=== PATIENT | female | born 1960 | race Caucasian/White ===

== ENCOUNTER 2017-05-31 18:36 | Observation (INO) | payer MEDICAID, SELFPAY ==
--- NOTE | 2017-05-31 18:54 | EDM.PDOC ---
ED HPI GENERAL MEDICAL PROBLEM - General Stated Complaint: INFLAMED RT THIGH Time Seen by Provider: 05/31/17 18:36 Source of Information: Reports: Patient, EMS, Family History Limitations: Reports: Physical Impairment - History of Present Illness INITIAL COMMENTS - FREE TEXT/NARRATIVE: 56 y.o.w f with metabolic syndrome, multiple medical problems, came to EMS to the ED due to redness of her right lower extremity. Pt denies SOB but has elevated temp. Pt took Tylenol at about 3 pm. Pt is not able to give a HPI due to her Body size. BP 115/50 temp 37.1 RR 18 Pulse ox 96 on 4 liters O2 by NC. Onset: Gradual Onset Date: 05/24/17 Onset Time: 07:00 Duration: Day(s):, Getting Worse Location: Reports: Lower Extremity, Right Quality: Reports: Ache, Burning, Dull Severity: Mild Improves with: Reports: Rest Worsens with: Reports: Movement Context: Reports: Other (Morbid obese with cronic leg edema.) Associated Symptoms: Reports: Weakness, Other (Morbid obesity, sedentary life style, Metabolic syndrome etc.) R leg Pain Score (Numeric/FACES): 5 - Related Data Allergies Allergy/AdvReac Type Severity Reaction Status Date / Time cefazolin sodium [From Ancef] Allergy Rash Verified 05/31/17 19:04 codeine phosphate Allergy Hives Verified 05/31/17 19:04 [From Tylenol-Codeine #3] gatifloxacin Allergy Nausea and Verified 05/31/17 19:04 Vomiting levofloxacin [From Levaquin] Allergy Rash Verified 05/31/17 21:38 methylprednisolone Allergy Cannot Verified 05/31/17 19:04 Remember piperacillin sodium Allergy Hives Verified 05/31/17 19:04 [From Zosyn] tazobactam sodium Allergy Hives Verified 05/31/17 19:04 [From Zosyn] Home Meds: Home Meds FLUoxetine HCl [Fluoxetine HCl] 80 mg PO DAILY 05/25/14 [History] Hyoscyamine Sulfate 0.125 mg PO BID 05/25/14 [History] Insulin Aspart [Novolog Flexpen] 14 units SUBCUT 0700,1200,1800 05/25/14 [ History] Fluticasone/Salmeterol [Advair 250-50] 1 puff INH Q12H 05/26/14 [History] Omeprazole [Prilosec] 20 mg PO BIDAC 05/26/14 [History] Phenytoin Sodium Extended [Dilantin] 200 mg PO BID #120 capsule 05/29/14 [Rx] Sucralfate [Carafate] 1 gm PO QIDACANDBED #120 tablet 05/29/14 [Rx] Aspirin 325 mg PO DAILY 12/21/14 [History] Cholecalciferol (Vitamin D3) [Vitamin D3] 4,000 unit PO 1200 12/21/14 [History] Digoxin 125 mcg PO DAILY 03/23/15 [History] Docusate Sodium [Colace] 100 mg PO BID PRN 11/01/15 [History] Glucagon,Human Recombinant [Glucagen] 1 mg IM ASDIRECTED PRN 11/01/15 [History] Loperamide HCl [Loperamide] 2 mg PO ASDIRECTED PRN 11/01/15 [History] Methylcellulose (with Sugar) [Citrucel] 2 tbsp PO DAILY 11/01/15 [History] Multivitamins/Min/Ca/FA/Iron [Thera-M] 1 tab PO DAILY 11/01/15 [History] Nystatin [Nystatin Crm] 1 applic TOP BID 11/01/15 [History] OXcarbazepine [Trileptal] 300 mg PO BID 11/01/15 [History] Potassium Chloride [Klor-Con M20] 20 meq PO DAILY 11/01/15 [History] Topiramate [Topamax] 50 mg PO DAILY 11/01/15 [History] Topiramate [Topamax] 100 mg PO BEDTIME 11/01/15 [History] Triamcinolone Acetonide [Triamcinolone Acetonide 0.025%] 1 applic TOP DAILY [History] Warfarin [Coumadin] 7.5 mg PO DAILY 11/02/15 [History] Albuterol/Ipratropium [DuoNeb 3.0-0.5 MG/3 ML] 3 ml IH TID PRN 04/04/16 [History ] Levothyroxine 200 mcg PO DAILY 04/04/16 [History] Metoprolol Succinate [Toprol XL] 50 mg PO DAILY #30 tab.er 04/04/16 [Rx] Pyrithione Zinc [Dandruff Shampoo] 1 applic TOP DAILY PRN 04/04/16 [History] Acetaminophen [Tylenol] 325 - 650 mg PO Q4H PRN 06/01/17 [History] Albuterol [Ventolin HFA] 2 puff INH Q6H PRN 06/01/17 [History] Clotrimazole [Lotrimin AF 1% Crm] 30 gm .XX BEDTIME 06/01/17 [History] Diltiazem HCl [Cartia Xt] 180 mg PO DAILY 06/01/17 [History] EPINEPHrine [Epinephrine] 0.3 mg IJ ASDIRECTED PRN 06/01/17 [History] Furosemide 40 mg PO WITHLUNCH 06/01/17 [History] Furosemide [Lasix] 60 mg PO DAILY 06/01/17 [History] Gabapentin [Neurontin] 300 mg PO TID 06/01/17 [History] Insulin Glarg,Human.Rec.Analog [Lantus Solostar] 44 units SQ BID 06/01/17 [ History] Levothyroxine 25 mcg PO DAILY 06/01/17 [History] Metaxalone [Skelaxin] 800 mg PO BID PRN 06/01/17 [History] Rosuvastatin [Crestor] 40 mg PO WITHLUNCH 06/01/17 [History] clonazePAM [Clonazepam] 0.125 mg PO BID PRN 06/01/17 [History] risperiDONE 2 mg PO BID 06/01/17 [History] traZODone HCl [Trazodone HCl] 50 mg PO BEDTIME 06/01/17 [History] Past Medical History HEENT History: Reports: Cataract Cardiovascular History: Reports: Afib, Heart Failure, Other (See Below) Other Cardiovascular History: 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 Gastrointestinal History: Reports: GERD Genitourinary History: Reports: UTI, Recurrent C[employer]ER History: Reports: Other (See Below) Other OB/BYN History: 1, para1, with a normal delivery Musculoskeletal History: Reports: Fracture Other Musculoskeletal History: hx R wrist Neurological History: Reports: Seizure Psychiatric History: Reports: Anxiety, Bipolar Other Psychiatric History: history of substance abuse Endocrine/Metabolic History: Reports: Diabetes, Type II, Obesity/BMI 30+, Other (See Below) Other Endocrine/Metabolic History: diabetic; unknown which type Hematologic History: Reports: Blood Transfusion(s) Dermatologic History: Reports: Decubitus Ulcer, Other (See Below) Other Dermatologic History: dermatitis to lower legs, a slit 3 cm open in butt crack - Infectious Disease History Infectious Disease History: Reports: Chicken Pox - Past Surgical History HEENT Surgical History: Reports: Tonsillectomy Female Surgical History: Reports: D&C Social & Family History - Family History Family Medical History: Unobtainable Cardiac: Reports: CAD Respiratory: Reports: Asthma, Sleep Apnea, Other (See Below) Other Respiratory Family Hisory: pt refuses to be tested for sleep apnea but family is pretty sure she has it. Oncologic: Reports: Lung - Tobacco Use Smoking Status *Q: Never Smoker Years of Tobacco use: 21 Used Tobacco, but Quit: Yes Month Tobacco Last Used: 15 years ago Second Hand Smoke Exposure: No - Caffeine Use Caffeine Use: Reports: Soda - Alcohol Use Days Per Week of Alcohol Use: 0 - Recreational Drug Use Recreational Drug Use: No Drug Use in Last 12 Months: No - Living Situation & Occupation Living situation: Reports: Single, with Significant Other Occupation: Unemployed Review of Systems - Review of Systems Review Of Systems: Unable To Obtain ED EXAM, GENERAL - Physical Exam Exam: See Below Exam Limited By: Physical Impairment General Appearance: Alert, Mild Distress, Obese (morbid) Eye Exam: Bilateral Eye: Normal Inspection Ears: Normal External Exam Ear Exam: Bilateral Ear: Auricle Normal Nose: Normal Inspection Throat/Mouth: Normal Inspection, Normal Lips, Normal Voice, No Airway Compromise Head: Atraumatic, Normocephalic Neck: Normal Inspection, Supple, Non-Tender, Full Range of Motion Respiratory/Chest: No Respiratory Distress, Lungs Clear, Normal Breath Sounds, Chest Non-Tender Cardiovascular: Normal Peripheral Pulses, Regular Rate, Rhythm, Other (chronic lower legedema. ) Peripheral Pulses: 1+: Radial (L) GI/Abdominal: Normal Bowel Sounds, Soft, Non-Tender, No Organomegaly, No Abnormal Bruit, No Mass, Pelvis Stable (Female) Exam: Deferred Rectal (Female) Exam: Deferred Back Exam: Normal Inspection, Full Range of Motion Extremities: Normal Range of Motion, Non-Tender, Pedal Edema (chronic) Neurological: Alert, Oriented, CN II-XII Intact, Normal Cognition, No Motor/ Sensory Deficits, Abnormal Gait (due to obesity) Psychiatric: Normal Affect, Normal Mood, Depressed Mood Skin Exam: Warm, Dry, Rash (rash right upper extremity) Lymphatic: No Adenopathy Course - Vital Signs Text/Narrative:: 56 y.o.w f with metabolic syndrome, multiple medical problems, came to EMS to the ED due to redness of her right lower extremity. Pt denies SOB but has elevated temp. Pt took Tylenol at about 3 pm. Pt is not able to give a HPI due to her Body size. BP 115/50 temp 37.1 RR 18 Pulse ox 96 on 4 liters O2 by NC. PE: Morbid obese W F with H/O asthma, cellulites R leg Imaging: CXR possible R U L infiltrate, official report is pending, US study to R/O DVT: pending Labs: INR 2.25 (pt is on Coumadin), WBC 14.4K BCx results are pending Impression: Cellulitis R leg with chronic legedema, possible infiltrate RUL Tx: Levaquin, Duoneb, Tylenol, Motrin, Please see incident report Reexam: Improved Incident report: Levaquin 750 mg po was ordered by me because Levoquine was not listed as allergy at the time and the pt denied a Levoqine allergy. Nurse gave Keppra 250 by accident instead of Levoquine because the meds was handed to her wrongly(?). Nurse said she called poison control center and was asked to observe pt overnight at the [facility]. Nurse added the levoquine Allergy later on to the patient's allergy list. This is on reportable incident Plan: Admit [facility]. Addendum: The nurse told me this morning she she did not call Poison Control but [facility], which made recommendations. Please see here note. Last Recorded V/S: Last Vital Signs Temp 37.2 C 06/02/17 04:00 Pulse 72 06/02/17 04:00 Resp 20 06/02/17 04:00 BP 140/59 L 06/02/17 04:00 Pulse Ox 94 L 06/02/17 04:00 - Orders/Labs/Meds Orders: Medication Orders Albuterol (Ventolin Hfa) 0 gm INH Q6H PRN PRN Reason: Wheezing Albuterol/Ipratropium (Duoneb 3.0-0.5 Mg/3 Ml) 3 ml NEB TID PRN PRN Reason: WHEEZING/SHORTNESS OF BREATH Aspirin (Ecotrin) 325 mg PO DAILY [facility] Cholecalciferol (Vitamin D3) 4,000 units PO 1200 [facility] Clonazepam (Klonopin) 0.125 mg PO BID PRN PRN Reason: Anxiety Digoxin (Lanoxin) 125 mcg PO DAILY [facility] Diltiazem HCl (Cardizem Cd) 180 mg PO DAILY [facility] Docusate Sodium (Colace) 100 mg PO BID PRN PRN Reason: CONSTIPATION Fluoxetine HCl (Prozac) 80 mg PO DAILY [facility] Furosemide (Lasix) 40 mg PO WITHLUNCH [facility] Furosemide (Lasix) 60 mg PO DAILY [facility] Gabapentin (Neurontin) 300 mg PO TID [facility] Last Admin: 06/01/17 20:55 Dose: 300 mg Hyoscyamine (Hyomax-Sl) 0.125 mg PO BID [facility] Last Admin: 06/01/17 20:55 Dose: 0.125 mg Doxycycline Hyclate 100 mg/ (Sodium Chloride) 100 mls @ 100 mls/hr IV Q12H [facility] Last Admin: 06/01/17 21:55 Dose: 100 mls/hr Admin: 06/01/17 10:18 Dose: 100 mls/hr Admin: 06/01/17 01:00 Dose: 100 mls/hr Insulin Aspart (Novolog) 14 unit SUBCUT TIDMEALS [facility] Last Admin: 06/01/17 17:31 Dose: 14 units Admin: 06/01/17 13:37 Dose: 14 units Insulin Aspart (Novolog) 0 unit SUBCUT QIDACANDBED [facility] PRN Reason: Protocol Last Admin: 06/01/17 21:14 Dose: 3 units Admin: 06/01/17 17:31 Dose: 3 units Admin: 06/01/17 13:38 Dose: 3 units Insulin Detemir (Levemir) 44 unit SUBCUT BID [facility] Last Admin: 06/01/17 21:13 Dose: 44 unit Levothyroxine Sodium (Levothyroxine) 25 mcg PO DAILY@0600 [facility] Last Admin: 06/02/17 06:25 Dose: 25 mcg Levothyroxine Sodium (Levothyroxine) 200 mcg PO DAILY@0600 [facility] Last Admin: 06/02/17 06:25 Dose: 200 mcg Loperamide HCl (Imodium) 0 mg PO ASDIRECTED PRN PRN Reason: Diarrhea Metaxalone (Skelaxin) 800 mg PO BID PRN PRN Reason: MUSCLE SPASMS Methylcellulose (Soluble Fiber Therapy Powder) 0 gm PO DAILY [facility] Metoprolol Succinate (Toprol Xl) 50 mg PO DAILY [facility] Multivitamins/Minerals (Vitamins And Minerals) 1 tab PO DAILY [facility] Omeprazole 20mg * (Ptom) 0 each PO BIDAC [facility] Last Admin: 06/01/17 17:28 Dose: 1 each Risperidone 2mg * (Ptom) 0 each PO BID [facility] Last Admin: 06/01/17 20:56 Dose: 1 each Rosuvastatin 20mg * (Ptom) 0 each PO WITHLUNCH [facility] Oxcarbazepine (Trileptal) 300 mg PO BID [facility] Last Admin: 06/01/17 21:00 Dose: 300 mg Phenytoin Sodium (Phenytoin) 200 mg PO BID [facility] Last Admin: 06/01/17 20:57 Dose: 200 mg Potassium Chloride (Klor-Con M20) 20 meq PO DAILY [facility] Sodium Chloride (Saline Flush) 10 ml FLUSH ASDIRECTED [facility] Last Admin: 06/01/17 23:00 Dose: 10 ml Admin: 06/01/17 01:07 Dose: 10 ml Sucralfate (Carafate) 1 gm PO 0700,1100,1700,2100 [facility] Last Admin: 06/02/17 06:26 Dose: 1 gm Admin: 06/01/17 20:53 Dose: 1 gm Admin: 06/01/17 17:28 Dose: 1 gm Topiramate (Topamax) 50 mg PO DAILY [facility] Topiramate (Topamax) 100 mg PO BEDTIME [facility] Last Admin: 06/01/17 21:02 Dose: 100 mg Trazodone HCl (Trazodone) 50 mg PO BEDTIME [facility] Last Admin: 06/01/17 21:05 Dose: 50 mg Warfarin Sodium (Coumadin) 7.5 mg PO 1600 [facility] Last Admin: 06/01/17 17:29 Dose: 7.5 mg Labs: Laboratory Tests 05/31/17 05/31/17 05/31/17 Range/Units 19:00 19:00 19:00 WBC 14.4 H (4.5-12.0) X10-3/uL RBC 4.83 (3.23-5.20) x10(6)uL Hgb 10.6 L (11.5-15.5) g/dL Hct 43.6 D (30.0-51.3) % MCV 90.3 (80-96) fL MCH 22.0 L (27.7-33.6) pg MCHC 24.4 L (32.2-35.4) g/dL RDW 13.4 (11.5-15.5) % Plt Count 223 (125-369) X10(3)uL MPV 8.6 (7.4-10.4) fL Add Manual Diff Yes Neutrophils % (Manual) 86 H (46-82) % Band Neutrophils % 1 (0-6) % Lymphocytes % (Manual) 8 L (13-37) % Monocytes % (Manual) 5 (4-12) % Hypochromasia Few PT 23.1 H (8.7-11.1) INR 2.25 H (0.89-1.13) Sodium 136 (135-145) mmol/L Potassium 3.5 (3.5-5.3) mmol/L Chloride 96 L (100-110) mmol/L Carbon Dioxide 33 H (21-32) mmol/L BUN 17 (7-18) mg/dL Creatinine 1.2 H (0.55-1.02) mg/dL Est Cr Clr Drug Dosing TNP Estimated GFR (MDRD) 47 L (>60) BUN/Creatinine Ratio 14.2 (9-20) Glucose 159 H (80-116) mg/dL Calcium 8.9 (8.6-10.2) mg/dL Meds: Medications Generic Name Dose Route Start Last Admin Trade Name Freq PRN Reason Stop Dose Admin Albuterol 0 gm 06/01/17 13:25 Ventolin Hfa INH Q6H PRN Wheezing Albuterol/Ipratropium 3 ml 06/01/17 12:46 Duoneb 3.0-0.5 Mg/3 Ml NEB TID PRN WHEEZING/SHORTNESS OF BREATH Aspirin 325 mg 06/02/17 09:00 Ecotrin PO DAILY [facility] Cholecalciferol 4,000 units 06/02/17 12:00 Vitamin D3 PO 1200 [facility] Clonazepam 0.125 mg 06/01/17 13:27 Klonopin PO BID PRN Anxiety Digoxin 125 mcg 06/02/17 09:00 Lanoxin PO DAILY [facility] Diltiazem HCl 180 mg 06/02/17 09:00 Cardizem Cd PO DAILY [facility] Docusate Sodium 100 mg 06/01/17 13:45 Colace PO BID PRN CONSTIPATION Fluoxetine HCl 80 mg 06/02/17 09:00 Prozac PO DAILY [facility] Furosemide 40 mg 06/02/17 12:00 Lasix PO WITHLUNCH [facility] Furosemide 60 mg 06/02/17 09:00 Lasix PO DAILY [facility] Gabapentin 300 mg 06/01/17 21:00 06/01/17 20:55 Neurontin PO 300 mg TID [facility] Administration Hyoscyamine 0.125 mg 06/01/17 21:00 06/01/17 20:55 Hyomax-Sl PO 0.125 mg BID [facility] Administration Doxycycline Hyclate 100 mg/ 100 mls @ 100 mls/hr 05/31/17 22:00 06/01/17 21: 55 Sodium Chloride IV 100 mls/hr Q12H [facility] Administration Insulin Aspart 14 unit 06/01/17 13:30 06/01/17 17:31 Novolog SUBCUT 14 units TIDMEALS [facility] Administration Insulin Aspart 0 unit 06/01/17 11:30 06/01/17 21:14 Novolog SUBCUT 3 units QIDACANDBED [facility] Administration Protocol Insulin Detemir 44 unit 06/01/17 21:00 06/01/17 21:13 Levemir SUBCUT 44 unit BID [facility] Administration Levothyroxine Sodium 25 mcg 06/02/17 06:00 06/02/17 06:25 Levothyroxine PO 25 mcg DAILY@0600 [facility] Administration Levothyroxine Sodium 200 mcg 06/02/17 06:00 06/02/17 06:25 Levothyroxine PO 200 mcg DAILY@0600 [facility] Administration Loperamide HCl 0 mg 06/01/17 14:14 Imodium PO ASDIRECTED PRN Diarrhea Metaxalone 800 mg 06/01/17 13:45 Skelaxin PO BID PRN MUSCLE SPASMS Methylcellulose 0 gm 06/02/17 09:00 Soluble Fiber Therapy Powder PO DAILY [facility] Metoprolol Succinate 50 mg 06/02/17 09:00 Toprol Xl PO DAILY [facility] Multivitamins/Minerals 1 tab 06/02/17 09:00 Vitamins And Minerals PO DAILY [facility] Omeprazole 20mg * 0 each 06/01/17 17:30 06/01/17 17:28 Ptom PO 1 each BIDAC [facility] Administration Risperidone 2mg * 0 each 06/01/17 21:00 06/01/17 20:56 Ptom PO 1 each BID [facility] Administration Rosuvastatin 20mg * 0 each 06/02/17 12:00 Ptom PO WITHLUNCH [facility] Oxcarbazepine 300 mg 06/01/17 21:00 06/01/17 21:00 Trileptal PO 300 mg BID [facility] Administration Phenytoin Sodium 200 mg 06/01/17 21:00 06/01/17 20:57 Phenytoin PO 200 mg BID [facility] Administration Potassium Chloride 20 meq 06/02/17 09:00 Klor-Con M20 PO DAILY [facility] Sodium Chloride 10 ml 06/01/17 00:45 06/01/17 23:00 Saline Flush FLUSH 10 ml ASDIRECTED [facility] Administration Sucralfate 1 gm 06/01/17 17:00 06/02/17 06:26 Carafate PO 1 gm 0700,1100,1700,2100 [facility] Administration Topiramate 50 mg 06/02/17 09:00 Topamax PO DAILY [facility] Topiramate 100 mg 06/01/17 21:00 06/01/17 21:02 Topamax PO 100 mg BEDTIME [facility] Administration Trazodone HCl 50 mg 06/01/17 21:00 06/01/17 21:05 Trazodone PO 50 mg BEDTIME [facility] Administration Warfarin Sodium 7.5 mg 06/01/17 16:00 06/01/17 17:29 Coumadin PO 7.5 mg 1600 [facility] Administration Discontinued Medications Generic Name Dose Route Start Last Admin Trade Name Freq PRN Reason Stop Dose Admin Acetaminophen 650 mg 05/31/17 21:01 05/31/17 21:24 Tylenol PO 05/31/17 21:02 650 mg NOW ONE Administration Albuterol/Ipratropium 3 ml 06/01/17 07:36 06/01/17 07:51 Duoneb 3.0-0.5 Mg/3 Ml NEB 06/01/17 07:37 3 ml ONETIME ONE Administration Ibuprofen 600 mg 05/31/17 19:15 05/31/17 19:18 Motrin PO 02/21/18 19:16 600 mg ONETIME ONE Administration Levetiracetam Confirm 05/31/17 21:16 05/31/17 21:25 Keppra Administered 05/31/17 21:17 500 mg Dose Administration 500 mg .ROUTE .STK-MED ONE Levofloxacin 750 mg 05/31/17 21:00 05/31/17 21:25 Levaquin PO Not Given Q24H [facility] Levofloxacin Confirm 05/31/17 21:16 05/31/17 22:48 Levaquin Administered 05/31/17 21:17 Not Given Dose 250 mg .ROUTE .STK-MED ONE Levofloxacin 250 mg 05/31/17 21:00 05/31/17 21:25 Levaquin PO 05/31/17 21:01 250 mg ONETIME ONE Administration Levofloxacin 500 mg 05/31/17 21:00 05/31/17 21:25 Levaquin PO 05/31/17 21:01 Not Given STAT ONE Non-Formulary Medication 0.3 mg 06/01/17 12:46 Epinephrine [Epinephrine] IJ ASDIRECTED PRN Anaphylaxis Non-Formulary Medication 1 mg 06/01/17 12:46 Glucagon,Human Recombinant [Glucagen] IM ASDIRECTED PRN Hypoglycemia Departure - Departure Time of Disposition: 20:45 Disposition: Home, Self-Care 01 Condition: Good Clinical Impression: Cellulitis of right leg without foot, Morbid obesity - Discharge Information
[2017-05-31] MEDS ORDERED: Ibuprofen 600 MG Tab PO ONE (19:15)
[2017-05-31] MEDS ORDERED: Levofloxacin 500 MG Tab PO ONE (21:00)
[2017-05-31] MEDS ORDERED: Levofloxacin 250 MG Tab PO ONE (21:00)
[2017-05-31] MEDS ORDERED: Levofloxacin 750 MG Tab PO SCH (21:00)
[2017-05-31] MEDS ORDERED: Acetaminophen 325 MG Tab PO ONE (21:01)
[2017-05-31] MEDS ORDERED: Levofloxacin 250 MG Tab ONE (21:16)
[2017-05-31] MEDS: levETIRAcetam 500 MG Tab ONE ×2 (21:25)
[2017-06-01] MEDS: Doxycycline 100 MG in Sodium Chloride 0.9% 100 ML IV SCH ×3 (01:00→21:55)
[2017-06-01] MEDS: Sodium Chloride 0.9% 10 ML Syringe FLUSH SCH ×2 (01:07→23:00)
[2017-06-01] MEDS ORDERED: Albuterol/Ipratropium 3.0-0.5 MG/3 ML Neb Soln NEB ONE (07:36)
--- NOTE | 2017-06-01 10:14 | CR ---
INDICATION: Short of breath. CHEST: AP portable upright view of the chest 05/31/2017 was compared with 04/04 and 04/02/2016, as well as 05/25/2014 and 03/22/2015. There is infiltration in the upper lung field extending into the apical area on the right, which may have been present at least in part back to 2014 and definitely was present on 03/22/2015. This appearance most likely is at least mostly fibrotic. The possibility of superimposed areas of acute pneumonia in this region cannot be excluded. The inspiration is relatively poor, emphasizing markings. It is difficult to entirely exclude a mild or early CHF, although the heart is not grossly enlarged. Findings could be on the basis of an acute myocardial event with CHF , however. Fluid overload would also be a consideration, as well as other abnormalities such as renal failure. Otherwise, no consolidating pneumonia or effusion was identified. Exogenous obesity is noted. IMPRESSION: 1. Cannot exclude mild CHF or other cause of pulmonary vascular congestion of mild degree - correlate clinically. 2. Infiltration right upper lung field, at least partly fibrotic in nature. Superimposed pneumonia in that area cannot be excluded - correlate clinically. 3. Exogenous obesity. Full inspiration PA and lateral views of the chest may be helpful for further evaluation. MTDD
--- NOTE | 2017-06-01 11:03 | US ---
INDICATION: Swelling, redness, question DVT. DUPLEX ULTRASOUND, RIGHT LOWER EXTREMITY VEINS: Utilizing 2-D real time, duplex Doppler spectral analysis, and color flow imaging, examination of the right lower extremity veins was obtained. It was limited due to patient body habitus and the patient's inability to cooperate with the examination. The posterior tibial vein was visualized to the midcalf area. The peroneal and greater saphenous were not visualized. The anterior tibial vein was not visualized. However, the common femoral, femoral, and popliteal veins were visualized with color flow and compression. Valvular competence was not evaluated. IMPRESSION: Limited examination. No evidence of deep venous thrombosis as visualized. MTDD
[2017-06-01] MEDS ORDERED: Albuterol/Ipratropium 3.0-0.5 MG/3 ML Neb Soln NEB PRN (12:46)
[2017-06-01] MEDS ORDERED: EPINEPHRINE 0.3 MG IJ PRN (12:46)
[2017-06-01] MEDS ORDERED: GLUCAGON HUMAN RECOMBINANT 1 MG IM PRN (12:46)
--- NOTE | 2017-06-01 13:14 | PCM.HP ---
H&P History of Present Illness - General Date of Service: 06/01/17 Admit Problem/Dx: Admission Diagnosis/Problem Admission Diagnosis/Problem Cellulitis - History of Present Illness Initial Comments - Free Text/Narative: 56y female with chronic bilateral venous insuffience and lymphedema of the lower extremities. presents with increased redness warm and tenderness to the right medial/posterior calf that has been ongoing for a day or so. no drainages or open sores. has been using her compression wraps. no knee, ankle or hip swelling, pain. feeling weak and subjective fevers, with concern for recurrent infection. she has not had coon, sore throat, falls, cp/pressure, cough, c/p, n/v , abd or pelvic pain. has not taken anything for this. tolerating orals and no dysuria/anuria, diarrhea. States she is consistent with her medications of which she is on numerous. She lives at home with her daughter and son as her care givers. cxr and labs were consistent with cellulites and possible minimal bronchitis. She was triaged in the ER and was appropriate for outpt management as she had reliable help and tolerating orals. she was inadvertantly given a dose of keppra rather than levaquin and per poison control center, was to be monitored for at least 6hr to rule out any adverse side effects. R leg Pain Score (Numeric/FACES): 5 - Related Data Allergies/Adverse Reactions: Allergies Allergy/AdvReac Type Severity Reaction Status Date / Time cefazolin sodium [From Ancef] Allergy Rash Verified 06/02/17 18:25 codeine phosphate Allergy Hives Verified 06/02/17 18:25 [From Tylenol-Codeine #3] gatifloxacin Allergy Nausea and Verified 06/02/17 18:25 Vomiting levofloxacin [From Levaquin] Allergy Rash Verified 06/02/17 18:25 methylprednisolone Allergy Cannot Verified 06/02/17 18:25 Remember piperacillin sodium Allergy Hives Verified 06/02/17 18:25 [From Zosyn] tazobactam sodium Allergy Hives Verified 06/02/17 18:25 [From Zosyn] Home Medications: Home Meds FLUoxetine HCl [Fluoxetine HCl] 80 mg PO DAILY 05/25/14 [History] Hyoscyamine Sulfate 0.125 mg PO BID 05/25/14 [History] Insulin Aspart [Novolog Flexpen] 14 units SUBCUT 0700,1200,1800 05/25/14 [ History] Fluticasone/Salmeterol [Advair 250-50] 1 puff INH Q12H 05/26/14 [History] Omeprazole [Prilosec] 20 mg PO BIDAC 05/26/14 [History] Phenytoin Sodium Extended [Dilantin] 200 mg PO BID #120 capsule 05/29/14 [Rx] Sucralfate [Carafate] 1 gm PO QIDACANDBED #120 tablet 05/29/14 [Rx] Aspirin 325 mg PO DAILY 12/21/14 [History] Cholecalciferol (Vitamin D3) [Vitamin D3] 4,000 unit PO 1200 12/21/14 [History] Digoxin 125 mcg PO DAILY 03/23/15 [History] Docusate Sodium [Colace] 100 mg PO BID PRN 11/01/15 [History] Glucagon,Human Recombinant [Glucagen] 1 mg IM ASDIRECTED PRN 11/01/15 [History] Loperamide HCl [Loperamide] 2 mg PO ASDIRECTED PRN 11/01/15 [History] Methylcellulose (with Sugar) [Citrucel] 2 tbsp PO DAILY 11/01/15 [History] Multivitamins/Min/Ca/FA/Iron [Thera-M] 1 tab PO DAILY 11/01/15 [History] Nystatin [Nystatin Crm] 1 applic TOP BID 11/01/15 [History] OXcarbazepine [Trileptal] 300 mg PO BID 11/01/15 [History] Potassium Chloride [Klor-Con M20] 20 meq PO DAILY 11/01/15 [History] Topiramate [Topamax] 50 mg PO DAILY 11/01/15 [History] Topiramate [Topamax] 100 mg PO BEDTIME 11/01/15 [History] Triamcinolone Acetonide [Triamcinolone Acetonide 0.025%] 1 applic TOP DAILY [History] Warfarin [Coumadin] 7.5 mg PO DAILY 11/02/15 [History] Albuterol/Ipratropium [DuoNeb 3.0-0.5 MG/3 ML] 3 ml IH TID PRN 04/04/16 [History ] Levothyroxine 200 mcg PO DAILY 04/04/16 [History] Metoprolol Succinate [Toprol XL] 50 mg PO DAILY #30 tab.er 04/04/16 [Rx] Pyrithione Zinc [Dandruff Shampoo] 1 applic TOP DAILY PRN 04/04/16 [History] Acetaminophen [Tylenol] 325 - 650 mg PO Q4H PRN 06/01/17 [History] Albuterol [Ventolin HFA] 2 puff INH Q6H PRN 06/01/17 [History] Clotrimazole [Lotrimin AF 1% Crm] 30 gm .XX BEDTIME 06/01/17 [History] Diltiazem HCl [Cartia Xt] 180 mg PO DAILY 06/01/17 [History] EPINEPHrine [Epinephrine] 0.3 mg IJ ASDIRECTED PRN 06/01/17 [History] Furosemide 40 mg PO WITHLUNCH 06/01/17 [History] Furosemide [Lasix] 60 mg PO DAILY 06/01/17 [History] Gabapentin [Neurontin] 300 mg PO TID 06/01/17 [History] Insulin Glarg,Human.Rec.Analog [Lantus Solostar] 44 units SQ BID 06/01/17 [ History] Levothyroxine 25 mcg PO DAILY 06/01/17 [History] Metaxalone [Skelaxin] 800 mg PO BID PRN 06/01/17 [History] Rosuvastatin [Crestor] 40 mg PO WITHLUNCH 06/01/17 [History] clonazePAM [Clonazepam] 0.125 mg PO BID PRN 06/01/17 [History] risperiDONE 2 mg PO BID 06/01/17 [History] traZODone HCl [Trazodone HCl] 50 mg PO BEDTIME 06/01/17 [History] Clindamycin HCl 300 mg PO Q8HR #30 capsule 06/02/17 [Rx] Doxycycline [Vibramycin] 100 mg PO BID #20 cap 06/02/17 [Rx] Past Medical History HEENT History: Reports: Cataract Other HEENT History: bilat cataract Cardiovascular History: Reports: Afib, Heart Failure, Other (See Below) Other Cardiovascular History: ekg monitor tech revealed sinus bradycardia, chronic lymphedema, chronic atrial fibrillation on Coumadin but admits in NSR Respiratory History: Reports: Asthma Other Respiratory History: On O2 @ 4L/NC @ home. Gastrointestinal History: Reports: GERD Genitourinary History: Reports: UTI, Recurrent CHILD CARE SPECIALIST History: Reports: Other (See Below) Other OB/BYN History: 1, para1, with a normal delivery Musculoskeletal History: Reports: Fracture Other Musculoskeletal History: hx R wrist Neurological History: Reports: Seizure Psychiatric History: Reports: Anxiety, Bipolar Other Psychiatric History: history of substance abuse Endocrine/Metabolic History: Reports: Diabetes, Type II, Obesity/BMI 30+, Other (See Below) Other Endocrine/Metabolic History: diabetic; unknown which type Hematologic History: Reports: Blood Transfusion(s) Dermatologic History: Reports: Decubitus Ulcer, Other (See Below) Other Dermatologic History: dermatitis to lower legs, a slit 3 cm open in butt crack - Infectious Disease History Infectious Disease History: Reports: Chicken Pox Other Infectious Disease History: had tests was cleared of MRSA - Past Surgical History HEENT Surgical History: Reports: Tonsillectomy Female Surgical History: Reports: D&C Social & Family History - Family History Family Medical History: Unobtainable Cardiac: Reports: CAD Respiratory: Reports: Asthma, Sleep Apnea, Other (See Below) Other Respiratory Family Hisory: pt refuses to be tested for sleep apnea but family is pretty sure she has it. Oncologic: Reports: Lung - Tobacco Use Smoking Status *Q: Never Smoker Years of Tobacco use: 21 Packs/Tins Daily: 1 Used Tobacco, but Quit: Yes Month Tobacco Last Used: 15 years ago Second Hand Smoke Exposure: No - Caffeine Use Caffeine Use: Reports: Soda - Alcohol Use Days Per Week of Alcohol Use: 0 - Recreational Drug Use Recreational Drug Use: No Drug Use in Last 12 Months: No Recreational Drug Type: Reports: Marijuana/Hashish Other Recreational Drug Type: Quit using 2011 Recreational Drug Use Frequency: Not Used In Over 6 Months - Living Situation & Occupation Living situation: Reports: Single, with Significant Other Occupation: Unemployed H&P Review of Systems - Review of Systems: Review Of Systems: ROS reveals no pertinent complaints other than HPI. Exam - Exam Exam: See Below - Vital Signs Vital Signs: Last Vital Signs Temp 98.0 F 06/01/17 09:33 Pulse 61 06/01/17 09:33 Resp 18 06/01/17 09:33 BP 135/66 06/01/17 09:33 Pulse Ox 92 L 06/01/17 09:33 Weight: 167.013 kg - Exam General: Alert, Oriented, Cooperative. No: Mild Distress, Lethargic HEENT: Conjunctiva Clear, Mucosa Moist & Blanco, Posterior Pharynx Clear. No: Scleral Icterus Neck: Supple, Trachea Midline. No: Lymphadenopathy Lungs: Clear to Auscultation, Normal Respiratory Effort Cardiovascular: Regular Rate, Irregular Rhythm GI/Abdominal Exam: Normal Bowel Sounds, Soft, Non-Tender, No Distention (Female) Exam: Normal External Exam Rectal (Female) Exam: Deferred Extremities: Increased Warmth, Redness (right medial posterior calf with prior erythema outlined overnight and this morning makedly reduced. no fluctuance weeping or induration, ) Psychiatric: Alert, Normal Affect, Normal Mood - Patient Data Lab Results Last 24 hrs: Laboratory Tests 05/31/17 05/31/17 05/31/17 Range/Units 19:00 19:00 19:00 WBC 14.4 H (4.5-12.0) X10-3/uL RBC 4.83 (3.23-5.20) x10(6)uL Hgb 10.6 L (11.5-15.5) g/dL Hct 43.6 D (30.0-51.3) % MCV 90.3 (80-96) fL MCH 22.0 L (27.7-33.6) pg MCHC 24.4 L (32.2-35.4) g/dL RDW 13.4 (11.5-15.5) % Plt Count 223 (125-369) X10(3)uL MPV 8.6 (7.4-10.4) fL Add Manual Diff Yes Neutrophils % (Manual) 86 H (46-82) % Band Neutrophils % 1 (0-6) % Lymphocytes % (Manual) 8 L (13-37) % Monocytes % (Manual) 5 (4-12) % Hypochromasia Few PT 23.1 H (8.7-11.1) INR 2.25 H (0.89-1.13) Sodium 136 (135-145) mmol/L Potassium 3.5 (3.5-5.3) mmol/L Chloride 96 L (100-110) mmol/L Carbon Dioxide 33 H (21-32) mmol/L BUN 17 (7-18) mg/dL Creatinine 1.2 H (0.55-1.02) mg/dL Est Cr Clr Drug Dosing TNP Estimated GFR (MDRD) 47 L (>60) BUN/Creatinine Ratio 14.2 (9-20) Glucose 159 H (80-116) mg/dL POC Glucose (80-116) mg/dL Calcium 8.9 (8.6-10.2) mg/dL 06/01/17 Range/Units 09:01 WBC (4.5-12.0) X10-3/uL RBC (3.23-5.20) x10(6)uL Hgb (11.5-15.5) g/dL Hct (30.0-51.3) % MCV (80-96) fL MCH (27.7-33.6) pg MCHC (32.2-35.4) g/dL RDW (11.5-15.5) % Plt Count (125-369) X10(3)uL MPV (7.4-10.4) fL Add Manual Diff Neutrophils % (Manual) (46-82) % Band Neutrophils % (0-6) % Lymphocytes % (Manual) (13-37) % Monocytes % (Manual) (4-12) % Hypochromasia PT (8.7-11.1) INR (0.89-1.13) Sodium (135-145) mmol/L Potassium (3.5-5.3) mmol/L Chloride (100-110) mmol/L Carbon Dioxide (21-32) mmol/L BUN (7-18) mg/dL Creatinine (0.55-1.02) mg/dL Est Cr Clr Drug Dosing Estimated GFR (MDRD) (>60) BUN/Creatinine Ratio (9-20) Glucose (80-116) mg/dL POC Glucose 160 H (80-116) mg/dL Calcium (8.6-10.2) mg/dL Range/Units WBC (4.5-12.0) X10-3/uL RBC (3.23-5.20) x10(6)uL Hgb (11.5-15.5) g/dL Hct (30.0-51.3) % MCV (80-96) fL MCH (27.7-33.6) pg MCHC (32.2-35.4) g/dL RDW (11.5-15.5) % Plt Count (125-369) X10(3)uL MPV (7.4-10.4) fL Add Manual Diff Neutrophils % (Manual) (46-82) % Band Neutrophils % (0-6) % Lymphocytes % (Manual) (13-37) % Monocytes % (Manual) (4-12) % Hypochromasia PT (8.7-11.1) INR (0.89-1.13) Sodium (135-145) mmol/L Potassium (3.5-5.3) mmol/L Chloride (100-110) mmol/L Carbon Dioxide (21-32) mmol/L BUN (7-18) mg/dL Creatinine (0.55-1.02) mg/dL Est Cr Clr Drug Dosing Estimated GFR (MDRD) (>60) BUN/Creatinine Ratio (9-20) Glucose (80-116) mg/dL POC Glucose (80-116) mg/dL Calcium (8.6-10.2) mg/dL Result Diagrams: 06/02/17 06:05 06/02/17 06:05 Micky Results Last 24 hrs: Microbiology 05/31/17 19:00 Blood - Venous - Lab Draw Aerobic Blood Culture 05/31/17 19:00 Blood - Venous - Lab Draw Anaerobic Blood Culture 05/31/17 18:55 Blood - Venous Aerobic Blood Culture - 05/31/17 18:55 Blood - Venous Anaerobic Blood Culture *Q Meaningful Use (ADM) - VTE *Q VTE Criteria *Q: VTE Pharmacological Contraindications *Q: Not Candidate LT Anticoag - Stroke *Q Stroke Criteria *Q: - AMI *Q AMI Criteria *Q: - Problem List (1) Medication administered in error SNOMED Code(s): 532728478 ICD Code: T50.901A - POISONING BY UNSP DRUG/MEDS/BIOL SUBST, ACCIDENTAL, INIT Status: Acute Priority: High Qualifiers: Encounter type: initial encounter (2) Cellulitis of right leg without foot SNOMED Code(s): 081720328 ICD Code: L03.115 - CELLULITIS OF RIGHT LOWER LIMB Status: Acute Problem List Initiated/Reviewed/Updated: Yes Orders Last 24hrs: Active Orders 24 hr Category Date Time Status Garrett Bandage [RC] CONTINUOUS Care 06/01/17 13:11 Ordered Blood Glucose Check, Bedside [RC] WITHMEALSANDBED Care 06/01/17 12:59 Ordered Communication Order [RC] ASDIRECTED Care 06/01/17 13:06 Ordered Diabetes Education [RC] Click to Edit Care 06/01/17 13:00 Ordered IS (RT) [RT Incentive Spirometry] [RC] ASDIRECTED Care 06/01/17 07:55 Active Notify Provider Vital Signs [RC] ASDIRECTED Care 06/01/17 13:00 Ordered RT Aerosol Therapy [RC] ASDIRECTED Care 06/01/17 07:37 Active Consistent Carbohydrate Diet [DIET] Diet 06/01/17 Breakfast Active CBC WITH AUTO DIFF [HEME] AM Lab 06/02/17 05:11 Ordered INR,PT,PROTHROMBIN TIME [COAG] AM Lab 06/02/17 05:11 Ordered INR,PT,PROTHROMBIN TIME [COAG] AM Lab 06/03/17 05:11 Ordered Albuterol [Ventolin HFA] Med 06/01/17 12:46 Ordered 2 puff INH Q6H PRN Albuterol/Ipratropium [DuoNeb 3.0-0.5 MG/3 ML] Med 06/01/17 12:46 Ordered 3 ml NEB TID PRN Aspirin Med 06/02/17 09:00 Ordered 325 mg PO DAILY Cholecalciferol (Vitamin D3) [Vitamin D3] Med 06/02/17 12:00 Ordered 4,000 unit PO 1200 Clotrimazole [Lotrimin AF 1% Crm] Med 06/01/17 21:00 Ordered 30 gm .XX BEDTIME Digoxin [Digoxin] Med 06/02/17 09:00 Ordered 125 mcg PO DAILY Diltiazem HCl [Cartia Xt] Med 06/02/17 09:00 Ordered 180 mg PO DAILY Docusate Sodium [Colace] Med 06/01/17 12:46 Ordered 100 mg PO BID PRN Doxycycline [Vibramycin] 100 mg Med 05/31/17 22:00 Active Sodium Chloride 0.9% [Normal Saline] 100 ml IV Q12H EPINEPHrine [Epinephrine] Med 06/01/17 12:46 Ordered 0.3 mg IJ ASDIRECTED PRN FLUoxetine HCl [Fluoxetine HCl] Med 06/02/17 09:00 Ordered 80 mg PO DAILY Fluticasone/Salmeterol [Advair 250-50] Med 06/01/17 13:00 Ordered 1 puff INH Q12H Furosemide [Furosemide] Med 06/02/17 12:00 Ordered 40 mg PO WITHLUNCH Furosemide [Lasix] Med 06/02/17 09:00 Ordered 60 mg PO DAILY Gabapentin [Neurontin] Med 06/01/17 14:00 Ordered 300 mg PO TID Glucagon,Human Recombinant [Glucagen] Med 06/01/17 12:46 Ordered 1 mg IM ASDIRECTED PRN Hyoscyamine Sulfate [Hyoscyamine Sulfate] Med 06/01/17 21:00 Ordered 0.125 mg PO BID Insulin Aspart [NovoLOG] Med 06/01/17 17:30 Ordered See Protocol SUBCUT QIDACANDBED Insulin Aspart [Novolog Flexpen] Med 06/01/17 18:00 Ordered 14 units SUBCUT 0700,1200,1800 Insulin Glarg,Human.Rec.Analog [Lantus Solostar] Med 06/01/17 21:00 Ordered 44 units SQ BID Levothyroxine [Levothyroxine] Med 06/02/17 09:00 Ordered 200 mcg PO DAILY Levothyroxine [Levothyroxine] Med 06/02/17 09:00 Ordered 25 mcg PO DAILY Loperamide HCl [Loperamide] Med 06/01/17 12:46 Ordered 2 mg PO ASDIRECTED PRN Metaxalone [Skelaxin] Med 06/01/17 12:46 Ordered 800 mg PO BID PRN Methylcellulose (with Sugar) [Citrucel] Med 06/02/17 09:00 Ordered 2 tbsp PO DAILY Metoprolol Succinate [Toprol XL] Med 06/02/17 09:00 Ordered 50 mg PO DAILY Multivitamins/Min/Ca/FA/Iron [Thera-M] Med 06/02/17 09:00 Ordered 1 tab PO DAILY Nystatin [Nystatin Crm] Med 06/01/17 21:00 Ordered 1 applic TOP BID OXcarbazepine [Trileptal] Med 06/01/17 21:00 Ordered 300 mg PO BID Omeprazole [Prilosec] Med 06/01/17 17:30 Ordered 20 mg PO BIDAC Phenytoin Sodium Extended [Dilantin] Med 06/01/17 21:00 Ordered 200 mg PO BID Potassium Chloride [Klor-Con M20] Med 06/02/17 09:00 Ordered 20 meq PO DAILY Rosuvastatin [Crestor] Med 06/02/17 12:00 Ordered 40 mg PO WITHLUNCH Sodium Chloride 0.9% [Saline Flush] Med 06/01/17 00:45 Active 10 ml FLUSH ASDIRECTED Sucralfate [Carafate] Med 06/01/17 17:30 Ordered 1 gm PO QIDACANDBED Topiramate [Topamax] Med 06/01/17 21:00 Ordered 100 mg PO BEDTIME Topiramate [Topamax] Med 06/02/17 09:00 Ordered 50 mg PO DAILY Warfarin [Coumadin] Med 06/01/17 16:00 Ordered 7.5 mg PO DAILY clonazePAM [Clonazepam] Med 06/01/17 12:46 Ordered 0.125 mg PO BID PRN risperiDONE [risperiDONE] Med 06/01/17 21:00 Ordered 2 mg PO BID traZODone HCl [Trazodone HCl] Med 06/01/17 21:00 Ordered 50 mg PO BEDTIME Saline Lock Insert [OM.PC] Routine Oth 06/01/17 12:59 Ordered VTE Pharmacological Contraindications [AST] Per Unit Oth 06/01/17 12:59 Ordered Routine Medication Orders Albuterol/Ipratropium (Duoneb 3.0-0.5 Mg/3 Ml) 3 ml NEB TID PRN PRN Reason: WHEEZING/SHORTNESS OF BREATH Aspirin (Aspirin) 325 mg PO DAILY [facility] Doxycycline Hyclate 100 mg/ (Sodium Chloride) 100 mls @ 100 mls/hr IV Q12H [facility] Last Admin: 06/01/17 10:18 Dose: 100 mls/hr Admin: 06/01/17 01:00 Dose: 100 mls/hr Insulin Aspart (Novolog) 0 unit SUBCUT QIDACANDBED [facility] PRN Reason: Protocol Non-Formulary Medication (Albuterol [Ventolin Hfa]) 2 puff INH Q6H PRN PRN Reason: Wheezing Non-Formulary Medication (Cholecalciferol (Vitamin D3) [Vitamin D3]) 4,000 unit PO 1200 [facility] Non-Formulary Medication (Clonazepam [Clonazepam]) 0.125 mg PO BID PRN PRN Reason: Anxiety Non-Formulary Medication (Clotrimazole [Lotrimin Af 1% Crm]) 30 gm .XX BEDTIME [facility] Non-Formulary Medication (Digoxin [Digoxin]) 125 mcg PO DAILY [facility] Non-Formulary Medication (Diltiazem Hcl [Cartia Xt]) 180 mg PO DAILY [facility] Non-Formulary Medication (Docusate Sodium [Colace]) 100 mg PO BID PRN PRN Reason: Constipation Non-Formulary Medication (Epinephrine [Epinephrine]) 0.3 mg IJ ASDIRECTED PRN PRN Reason: Anaphylaxis Non-Formulary Medication (Fluoxetine Hcl [Fluoxetine Hcl]) 80 mg PO DAILY [facility] Non-Formulary Medication (Fluticasone/Salmeterol [Advair 250-50]) 1 puff INH Q12H [facility] Non-Formulary Medication (Furosemide [Furosemide]) 40 mg PO WITHLUNCH [facility] Non-Formulary Medication (Furosemide [Lasix]) 60 mg PO DAILY [facility] Non-Formulary Medication (Gabapentin [Neurontin]) 300 mg PO TID [facility] Non-Formulary Medication (Glucagon,Human Recombinant [Glucagen]) 1 mg IM ASDIRECTED PRN PRN Reason: Hypoglycemia Non-Formulary Medication (Hyoscyamine Sulfate [Hyoscyamine Sulfate]) 0.125 mg PO BID [facility] Non-Formulary Medication (Insulin Aspart [Novolog Flexpen]) 14 units SUBCUT 0700,1200,1800 [facility] Non-Formulary Medication (Insulin Glarg,Human.Rec.Analog [Lantus Solostar]) 44 units SQ BID [facility] Non-Formulary Medication (Levothyroxine [Levothyroxine]) 25 mcg PO DAILY [facility] Non-Formulary Medication (Levothyroxine [Levothyroxine]) 200 mcg PO DAILY [facility] Non-Formulary Medication (Loperamide Hcl [Loperamide]) 2 mg PO ASDIRECTED PRN PRN Reason: Diarrhea Non-Formulary Medication (Metaxalone [Skelaxin]) 800 mg PO BID PRN PRN Reason: Muscle Spasm Non-Formulary Medication (Methylcellulose (With Sugar) [Citrucel]) 2 tbsp PO DAILY [facility] Non-Formulary Medication (Metoprolol Succinate [Toprol Xl]) 50 mg PO DAILY [facility] Non-Formulary Medication (Multivitamins/Min/Ca/Fa/Iron [Thera-M]) 1 tab PO DAILY [facility] Non-Formulary Medication (Nystatin [Nystatin Crm]) 1 applic TOP BID [facility] Non-Formulary Medication (Omeprazole [Prilosec]) 20 mg PO BIDAC [facility] Non-Formulary Medication (Oxcarbazepine [Trileptal]) 300 mg PO BID [facility] Non-Formulary Medication (Phenytoin Sodium Extended [Dilantin]) 200 mg PO BID [facility] Non-Formulary Medication (Potassium Chloride [Klor-Con M20]) 20 meq PO DAILY [facility] Non-Formulary Medication (Risperidone [Risperidone]) 2 mg PO BID [facility] Non-Formulary Medication (Rosuvastatin [Crestor]) 40 mg PO WITHLUNCH [facility] Non-Formulary Medication (Sucralfate [Carafate]) 1 gm PO QIDACANDBED [facility] Non-Formulary Medication (Topiramate [Topamax]) 50 mg PO DAILY [facility] Non-Formulary Medication (Topiramate [Topamax]) 100 mg PO BEDTIME [facility] Non-Formulary Medication (Trazodone Hcl [Trazodone Hcl]) 50 mg PO BEDTIME [facility] Non-Formulary Medication (Warfarin [Coumadin]) 7.5 mg PO DAILY [facility] Sodium Chloride (Saline Flush) 10 ml FLUSH ASDIRECTED [facility] Last Admin: 06/01/17 01:07 Dose: 10 ml Assessment/Plan Comment:: routine cares for uncomplicated cellulitis. monitor for any adverse reaction to keppra, pt will use home medications and i anticipate should leg and labs improved, she will be discharged to home in 24-48h. her numerous comorbidities were reviewed along with medications used to palliate them and will be managed accordingly in house. all questions answered and she agrees with the above plan of care.
[2017-06-01] MEDS ORDERED: Albuterol 8 GM Inhaler INH PRN (13:25)
[2017-06-01] MEDS ORDERED: ClonazePAM 0.5 MG Tab PO PRN (13:27)
[2017-06-01] MEDS: Insulin Aspart 100 Units/ML 3 ML Pen SUBCUT SCH ×5 (13:37→21:14)
[2017-06-01] MEDS ORDERED: Docusate Sodium 100 MG Cap PO PRN (13:45)
[2017-06-01] MEDS ORDERED: METAXALONE 800 MG PO PRN (13:45)
[2017-06-01] MEDS ORDERED: Gabapentin 300 MG Cap PO SCH (14:00)
[2017-06-01] MEDS ORDERED: Loperamide 2 MG Cap PO PRN (14:14)
[2017-06-01] MEDS ORDERED: Warfarin 5 MG Tab *PTOM PO SCH (16:00)
[2017-06-01] MEDS: Sucralfate 1 GM Tab *PTOM PO SCH ×2 (17:28→20:53)
[2017-06-01] MEDS: OMEPRAZOLE 20MG *PTOM PO SCH (17:28)
[2017-06-01] MEDS: Hyoscyamine 0.125 MG Tab.SL *PTOM PO SCH (20:55)
[2017-06-01] MEDS: Gabapentin 300 MG Cap *PTOM PO SCH (20:55)
[2017-06-01] MEDS: RISPERIDONE 2 MG PO SCH (20:56)
[2017-06-01] MEDS: PHENYTOIN 100 MG PO SCH (20:57)
[2017-06-01] MEDS ORDERED: Clotrimazole 1% Crm 30 GM Tube TOP SCH (21:00)
[2017-06-01] MEDS ORDERED: traZODone 50 MG Tab *PTOM PO SCH (21:00)
[2017-06-01] MEDS ORDERED: TOPIRAMATE 50 MG PO SCH (21:00)
[2017-06-01] MEDS ORDERED: Formoterol/Mometasone 200-5 MCG 8.8 GM Inhaler IH SCH (21:00)
[2017-06-01] MEDS ORDERED: Nystatin Crm 15 GM Tube TOP SCH (21:00)
[2017-06-01] MEDS: OXCARBAZEPINE 300 MG PO SCH (21:00)
[2017-06-01] MEDS: Insulin Detemir 100 Units/ML 3 ML Pen SUBCUT SCH (21:13)
[2017-06-02] MEDS ORDERED: Levothyroxine 25 MCG Tab *PTOM PO SCH (06:00)
[2017-06-02] MEDS ORDERED: LEVOTHYROXINE 200 MCG PO SCH (06:00)
[2017-06-02] MEDS: Sucralfate 1 GM Tab *PTOM PO SCH (06:26)
[2017-06-02] MEDS: OMEPRAZOLE 20MG *PTOM PO SCH (08:14)
[2017-06-02] MEDS: Insulin Aspart 100 Units/ML 3 ML Pen SUBCUT SCH ×2 (08:14)
[2017-06-02] MEDS: Hyoscyamine 0.125 MG Tab.SL *PTOM PO SCH (08:16)
[2017-06-02] MEDS: Insulin Detemir 100 Units/ML 3 ML Pen SUBCUT SCH (08:17)
[2017-06-02] MEDS: Gabapentin 300 MG Cap *PTOM PO SCH (08:18)
[2017-06-02] MEDS: RISPERIDONE 2 MG PO SCH (08:19)
[2017-06-02] MEDS: PHENYTOIN 100 MG PO SCH (08:20)
[2017-06-02] MEDS: OXCARBAZEPINE 300 MG PO SCH (08:25)
[2017-06-02] MEDS ORDERED: Furosemide 40 MG Tab *PTOM PO SCH ×2 (09:00→12:00)
[2017-06-02] MEDS ORDERED: Metoprolol Succinate 50 MG Tab.ER *PTOM PO SCH (09:00)
[2017-06-02] MEDS ORDERED: TOPIRAMATE 50 MG PO SCH (09:00)
[2017-06-02] MEDS ORDERED: Multivitamins, Therapeutic with Minerals Tab PO SCH (09:00)
[2017-06-02] MEDS ORDERED: Digoxin 125 MCG Tab *PTOM PO SCH (09:00)
[2017-06-02] MEDS ORDERED: Potassium Chloride 20 MEQ Tab.ER *PTOM PO SCH (09:00)
[2017-06-02] MEDS ORDERED: [UNRECOGNIZED DRUG - OTHER] PO SCH (09:00)
[2017-06-02] MEDS ORDERED: METHYLCELLULOSE PO SCH (09:00)
[2017-06-02] MEDS ORDERED: FLUoxetine 20 MG Cap *PTOM PO SCH (09:00)
[2017-06-02] MEDS ORDERED: DILTIAZEM 180 MG PO SCH (09:00)
--- NOTE | 2017-06-02 09:13 | PCM.PN ---
- General Info Date of Service: 06/02/17 Subjective Update: Marisol feels good this morning with no more fever or pain, and the redness of the legs is much improved. She elected to go home today - Review of Systems Pulmonary: Reports: No Symptoms Cardiovascular: Reports: No Symptoms Gastrointestinal: Reports: No Symptoms - Patient Data Vitals - Most Recent: Last Vital Signs Temp 99 F 06/02/17 04:00 Pulse 59 L 06/02/17 08:20 Resp 20 06/02/17 04:00 BP 140/61 06/02/17 08:20 Pulse Ox 94 L 06/02/17 04:00 Weight - Most Recent: 167.013 kg I&O - Last 24 Hours: Intake & Output 06/01/17 06/02/17 06/02/17 22:59 06:59 14:59 Output Total 300 Balance -300 Lab Results Last 24 Hours: Laboratory Results - last 24 hr 06/01/17 06/01/17 06/01/17 Range/Units 09:01 12:49 17:17 WBC (4.5-12.0) X10-3/uL RBC (3.23-5.20) x10(6)uL Hgb (11.5-15.5) g/dL Hct (30.0-51.3) % MCV (80-96) fL MCH (27.7-33.6) pg MCHC (32.2-35.4) g/dL RDW (11.5-15.5) % Plt Count (125-369) X10(3)uL MPV (7.4-10.4) fL Add Manual Diff Neutrophils % (Manual) (46-82) % Lymphocytes % (Manual) (13-37) % Monocytes % (Manual) (4-12) % PT (8.7-11.1) INR (0.89-1.13) Sodium (135-145) mmol/L Potassium (3.5-5.3) mmol/L Chloride (100-110) mmol/L Carbon Dioxide (21-32) mmol/L BUN (7-18) mg/dL Creatinine (0.55-1.02) mg/dL Est Cr Clr Drug Dosing mL/min Estimated GFR (MDRD) (>60) BUN/Creatinine Ratio (9-20) Glucose (80-116) mg/dL POC Glucose 160 H 190 H 166 H (80-116) mg/dL Calcium (8.6-10.2) mg/dL 06/01/17 06/02/17 06/02/17 Range/Units 21:08 06:05 06:05 WBC 9.2 (4.5-12.0) X10-3/uL RBC 3.59 (3.23-5.20) x10(6)uL Hgb 10.8 L (11.5-15.5) g/dL Hct 32.1 D (30.0-51.3) % MCV 89.3 (80-96) fL MCH 30.1 (27.7-33.6) pg MCHC 33.7 (32.2-35.4) g/dL RDW 13.2 (11.5-15.5) % Plt Count 173 (125-369) X10(3)uL MPV 8.0 (7.4-10.4) fL Add Manual Diff Yes Neutrophils % (Manual) 69 (46-82) % Lymphocytes % (Manual) 17 (13-37) % Monocytes % (Manual) 14 H (4-12) % PT 17.6 H (8.7-11.1) INR 1.72 H (0.89-1.13) Sodium (135-145) mmol/L Potassium (3.5-5.3) mmol/L Chloride (100-110) mmol/L Carbon Dioxide (21-32) mmol/L BUN (7-18) mg/dL Creatinine (0.55-1.02) mg/dL Est Cr Clr Drug Dosing mL/min Estimated GFR (MDRD) (>60) BUN/Creatinine Ratio (9-20) Glucose (80-116) mg/dL POC Glucose 153 H (80-116) mg/dL Calcium (8.6-10.2) mg/dL 06/02/17 Range/Units 06:05 WBC (4.5-12.0) X10-3/uL RBC (3.23-5.20) x10(6)uL Hgb (11.5-15.5) g/dL Hct (30.0-51.3) % MCV (80-96) fL MCH (27.7-33.6) pg MCHC (32.2-35.4) g/dL RDW (11.5-15.5) % Plt Count (125-369) X10(3)uL MPV (7.4-10.4) fL Add Manual Diff Neutrophils % (Manual) (46-82) % Lymphocytes % (Manual) (13-37) % Monocytes % (Manual) (4-12) % PT (8.7-11.1) INR (0.89-1.13) Sodium 138 (135-145) mmol/L Potassium 3.0 L (3.5-5.3) mmol/L Chloride 97 L (100-110) mmol/L Carbon Dioxide 34 H (21-32) mmol/L BUN 17 (7-18) mg/dL Creatinine 1.0 (0.55-1.02) mg/dL Est Cr Clr Drug Dosing 59.51 mL/min Estimated GFR (MDRD) 58 L (>60) BUN/Creatinine Ratio 17.0 (9-20) Glucose 131 H (80-116) mg/dL POC Glucose (80-116) mg/dL Calcium 8.8 (8.6-10.2) mg/dL Med Orders - Current: Current Medications Albuterol (Ventolin Hfa) 0 gm INH Q6H PRN PRN Reason: Wheezing Albuterol/Ipratropium (Duoneb 3.0-0.5 Mg/3 Ml) 3 ml NEB TID PRN PRN Reason: WHEEZING/SHORTNESS OF BREATH Aspirin (Ecotrin) 325 mg PO DAILY [facility] Last Admin: 06/02/17 08:15 Dose: 325 mg Cholecalciferol (Vitamin D3) 4,000 units PO 1200 [facility] Clonazepam (Klonopin) 0.125 mg PO BID PRN PRN Reason: Anxiety Digoxin (Lanoxin) 125 mcg PO DAILY [facility] Last Admin: 06/02/17 08:16 Dose: 125 mcg Diltiazem HCl (Cardizem Cd) 180 mg PO DAILY [facility] Last Admin: 06/02/17 08:15 Dose: 180 mg Docusate Sodium (Colace) 100 mg PO BID PRN PRN Reason: CONSTIPATION Doxycycline Monohydrate (Vibramycin) 100 mg PO ONETIME ONE Stop: 06/02/17 10:01 Fluoxetine HCl (Prozac) 80 mg PO DAILY [facility] Last Admin: 06/02/17 08:20 Dose: 80 mg Furosemide (Lasix) 40 mg PO WITHLUNCH [facility] Furosemide (Lasix) 60 mg PO DAILY [facility] Last Admin: 06/02/17 08:17 Dose: 60 mg Gabapentin (Neurontin) 300 mg PO TID [facility] Last Admin: 06/02/17 08:18 Dose: 300 mg Hyoscyamine (Hyomax-Sl) 0.125 mg PO BID [facility] Last Admin: 06/02/17 08:16 Dose: 0.125 mg Insulin Aspart (Novolog) 14 unit SUBCUT TIDMEALS [facility] Last Admin: 06/02/17 08:14 Dose: 14 units Insulin Aspart (Novolog) 0 unit SUBCUT QIDACANDBED [facility] PRN Reason: Protocol Last Admin: 06/02/17 08:14 Dose: 3 units Insulin Detemir (Levemir) 44 unit SUBCUT BID [facility] Last Admin: 06/02/17 08:17 Dose: 44 unit Levothyroxine Sodium (Levothyroxine) 25 mcg PO DAILY@0600 [facility] Last Admin: 06/02/17 06:25 Dose: 25 mcg Levothyroxine Sodium (Levothyroxine) 200 mcg PO DAILY@0600 [facility] Last Admin: 06/02/17 06:25 Dose: 200 mcg Loperamide HCl (Imodium) 0 mg PO ASDIRECTED PRN PRN Reason: Diarrhea Metaxalone (Skelaxin) 800 mg PO BID PRN PRN Reason: MUSCLE SPASMS Methylcellulose (Soluble Fiber Therapy Powder) 0 gm PO DAILY [facility] Metoprolol Succinate (Toprol Xl) 50 mg PO DAILY [facility] Last Admin: 06/02/17 08:20 Dose: 50 mg Multivitamins/Minerals (Vitamins And Minerals) 1 tab PO DAILY [facility] Omeprazole 20mg * (Ptom) 0 each PO BIDAC [facility] Last Admin: 06/02/17 08:14 Dose: 1 each Risperidone 2mg * (Ptom) 0 each PO BID [facility] Last Admin: 06/02/17 08:19 Dose: 1 each Rosuvastatin 20mg * (Ptom) 0 each PO WITHLUNCH [facility] Oxcarbazepine (Trileptal) 300 mg PO BID [facility] Last Admin: 06/02/17 08:25 Dose: 300 mg Phenytoin Sodium (Phenytoin) 200 mg PO BID [facility] Last Admin: 06/02/17 08:20 Dose: 200 mg Potassium Chloride (Klor-Con M20) 20 meq PO DAILY [facility] Last Admin: 06/02/17 08:16 Dose: 20 meq Sodium Chloride (Saline Flush) 10 ml FLUSH ASDIRECTED [facility] Last Admin: 06/01/17 23:00 Dose: 10 ml Sucralfate (Carafate) 1 gm PO 0700,1100,1700,2100 [facility] Last Admin: 06/02/17 06:26 Dose: 1 gm Topiramate (Topamax) 50 mg PO DAILY [facility] Last Admin: 06/02/17 08:22 Dose: 50 mg Topiramate (Topamax) 100 mg PO BEDTIME [facility] Last Admin: 06/01/17 21:02 Dose: 100 mg Trazodone HCl (Trazodone) 50 mg PO BEDTIME [facility] Last Admin: 06/01/17 21:05 Dose: 50 mg Warfarin Sodium (Coumadin) 7.5 mg PO 1600 [facility] Last Admin: 06/01/17 17:29 Dose: 7.5 mg Discontinued Medications Acetaminophen (Tylenol) 650 mg PO NOW ONE Stop: 05/31/17 21:02 Last Admin: 05/31/17 21:24 Dose: 650 mg Albuterol/Ipratropium (Duoneb 3.0-0.5 Mg/3 Ml) 3 ml NEB ONETIME ONE Stop: 06/01/17 07:37 Last Admin: 06/01/17 07:51 Dose: 3 ml Doxycycline Hyclate 100 mg/ (Sodium Chloride) 100 mls @ 100 mls/hr IV Q12H [facility] Last Admin: 06/01/17 21:55 Dose: 100 mls/hr Ibuprofen (Motrin) 600 mg PO ONETIME ONE Stop: 05/31/17 19:16 Last Admin: 05/31/17 19:18 Dose: 600 mg Levetiracetam (Keppra) Confirm Administered Dose 500 mg .ROUTE .STK-MED ONE Stop: 05/31/17 21:17 Last Admin: 05/31/17 21:25 Dose: 500 mg Levofloxacin (Levaquin) 750 mg PO Q24H [facility] Last Admin: 05/31/17 21:25 Dose: Not Given Levofloxacin (Levaquin) Confirm Administered Dose 250 mg .ROUTE .STK-MED ONE Stop: 05/31/17 21:17 Last Admin: 05/31/17 22:48 Dose: Not Given Levofloxacin (Levaquin) 250 mg PO ONETIME ONE Stop: 05/31/17 21:01 Last Admin: 05/31/17 21:25 Dose: 250 mg Levofloxacin (Levaquin) 500 mg PO STAT ONE Stop: 05/31/17 21:01 Last Admin: 05/31/17 21:25 Dose: Not Given Non-Formulary Medication (Epinephrine [Epinephrine]) 0.3 mg IJ ASDIRECTED PRN PRN Reason: Anaphylaxis Non-Formulary Medication (Glucagon,Human Recombinant [Glucagen]) 1 mg IM ASDIRECTED PRN PRN Reason: Hypoglycemia - Exam Quality Assessment: No: Supplemental Oxygen General: Alert, Oriented HEENT: Pupils Equal, Pupils Reactive, EOMI, Mucous Membr. Moist/[place] Neck: Supple Lungs: Clear to Auscultation, Normal Respiratory Effort Extremities: Pedal Edema, Redness. No: Joint Swelling, Benjamin's Sign, Leg Pain - Problem List & Annotations (1) Cellulitis of right leg without foot SNOMED Code(s): 061029228 Code(s): L03.115 - CELLULITIS OF RIGHT LOWER LIMB Status: Acute Current Visit: Yes (2) Morbid obesity SNOMED Code(s): 981786480 Code(s): E66.01 - MORBID (SEVERE) OBESITY DUE TO EXCESS CALORIES Status: Acute Current Visit: Yes (3) Complaint of debility and malaise SNOMED Code(s): 576215853 Code(s): R53.81 - OTHER MALAISE Status: Acute Priority: Medium Current Visit: No Annotation/Comment:: - Problem List Review Problem List Initiated/Reviewed/Updated: Yes - My Orders Last 24 Hours: My Active Orders 06/02/17 10:00 Doxycycline [Vibramycin] 100 mg PO ONETIME ONE - Plan Plan:: She has no more white cell count, and no fever. Redness has improved. I will discharge her home on oral doxycycline to complete 10 days. Follow-up with PCP next week and she has an appointment with Yadi CLIFTON at 2 PM on Monday.Continue with home meds.
[2017-06-02 09:31] VITALS: BP 104/65
[2017-06-02] MEDS ORDERED: Doxycycline 100 MG Tab PO ONE (10:00)
[2017-06-02] MEDS ORDERED: ROSUVASTATIN 20 MG PO SCH (12:00)
[2017-06-02] MEDS ORDERED: CHOLECALCIFEROL 1000 UNIT PO SCH (12:00)
== END 2017-06-02 11:15 | disposition home or self-care (01) ==
LOC: FB.ED 18:36 → FB.MS 21:44
PROVIDERS: ADMIT Family Medicine; ATTEND Family Medicine
DX: L03.115 Cellulitis of right lower limb (principal); I87.2 Venous insufficiency (chronic) (peripheral); I48.91 Unspecified atrial fibrillation; I50.9 Heart failure, unspecified; J45.909 Unspecified asthma, uncomplicated; K21.9 Gastro-esophageal reflux disease without esophagitis; F41.9 Anxiety disorder, unspecified; F31.9 Bipolar disorder, unspecified; E11.9 Type 2 diabetes mellitus without complications; E66.01 Morbid (severe) obesity due to excess calories; R53.81 Other malaise; Z88.1 Allergy status to other antibiotic agents; Z88.5 Allergy status to narcotic agent; Z88.0 Allergy status to penicillin; Z79.899 Other long term (current) drug therapy; Z79.4 Long term (current) use of insulin; Z79.51 Long term (current) use of inhaled steroids; Z79.82 Long term (current) use of aspirin; Z79.01 Long term (current) use of anticoagulants; Z99.81 Dependence on supplemental oxygen; Z68.30 Body mass index [BMI] 30.0-30.9, adult; Z87.891 Personal history of nicotine dependence
CPT/HCPCS: 36415; 71045; 80048; 82962; 85025; 85610; 87040; 93971; 94150; 94640; 96365; 96366; 96375; 99284; A9270; G0378; J7030; J7050; J7620

== ENCOUNTER 2017-06-02 18:15 | Emergency (ER) | payer MEDICAID ==
[2017-06-02] MEDS ORDERED: Clindamycin HCl 150 MG Cap PO ONE (18:30)
--- NOTE | 2017-06-02 18:37 | EDM.PDOC ---
ED HPI GENERAL MEDICAL PROBLEM - General Chief Complaint: Lower Extremity Injury/Pain Stated Complaint: CELLULITIS Time Seen by Provider: 06/02/17 18:15 Source of Information: Reports: Patient, Family History Limitations: Reports: Physical Impairment - History of Present Illness INITIAL COMMENTS - FREE TEXT/NARRATIVE: 56 y.o.w.f with metabolic syndrome was d/c'd from this Hospital this am. Pt was admitted for cellulitis. Pt came to the ED by EMS becaus she things the PO meds, Doxycycline is "not strong enough" for here. Pt denied any other acute medical issue. BP 134/68 pulse 76 Temp 36.8 pulse ox 96% on RA Onset Date: 05/30/17 Onset Time: 16:00 Duration: Day(s): Location: Reports: Lower Extremity, Right Quality: Reports: Other (cellulitis right thigh) Severity: Mild Improves with: Reports: Medication Worsens with: Reports: None Context: Reports: Other (Pt was d/c'd today from the hospital, was admitted for cellulitis.) Associated Symptoms: Reports: No Other Symptoms Right Upper Leg Pain Score (Numeric/FACES): 4 - Related Data Allergies Allergy/AdvReac Type Severity Reaction Status Date / Time cefazolin sodium [From Ancef] Allergy Rash Verified 06/02/17 18:25 codeine phosphate Allergy Hives Verified 06/02/17 18:25 [From Tylenol-Codeine #3] gatifloxacin Allergy Nausea and Verified 06/02/17 18:25 Vomiting levofloxacin [From Levaquin] Allergy Rash Verified 06/02/17 18:25 methylprednisolone Allergy Cannot Verified 06/02/17 18:25 Remember piperacillin sodium Allergy Hives Verified 06/02/17 18:25 [From Zosyn] tazobactam sodium Allergy Hives Verified 06/02/17 18:25 [From Zosyn] Home Meds: Home Meds FLUoxetine HCl [Fluoxetine HCl] 80 mg PO DAILY 05/25/14 [History] Hyoscyamine Sulfate 0.125 mg PO BID 05/25/14 [History] Insulin Aspart [Novolog Flexpen] 14 units SUBCUT 0700,1200,1800 05/25/14 [ History] Fluticasone/Salmeterol [Advair 250-50] 1 puff INH Q12H 05/26/14 [History] Omeprazole [Prilosec] 20 mg PO BIDAC 05/26/14 [History] Phenytoin Sodium Extended [Dilantin] 200 mg PO BID #120 capsule 05/29/14 [Rx] Sucralfate [Carafate] 1 gm PO QIDACANDBED #120 tablet 05/29/14 [Rx] Aspirin 325 mg PO DAILY 12/21/14 [History] Cholecalciferol (Vitamin D3) [Vitamin D3] 4,000 unit PO 1200 12/21/14 [History] Digoxin 125 mcg PO DAILY 03/23/15 [History] Docusate Sodium [Colace] 100 mg PO BID PRN 11/01/15 [History] Glucagon,Human Recombinant [Glucagen] 1 mg IM ASDIRECTED PRN 11/01/15 [History] Loperamide HCl [Loperamide] 2 mg PO ASDIRECTED PRN 11/01/15 [History] Methylcellulose (with Sugar) [Citrucel] 2 tbsp PO DAILY 11/01/15 [History] Multivitamins/Min/Ca/FA/Iron [Thera-M] 1 tab PO DAILY 11/01/15 [History] Nystatin [Nystatin Crm] 1 applic TOP BID 11/01/15 [History] OXcarbazepine [Trileptal] 300 mg PO BID 11/01/15 [History] Potassium Chloride [Klor-Con M20] 20 meq PO DAILY 11/01/15 [History] Topiramate [Topamax] 50 mg PO DAILY 11/01/15 [History] Topiramate [Topamax] 100 mg PO BEDTIME 11/01/15 [History] Triamcinolone Acetonide [Triamcinolone Acetonide 0.025%] 1 applic TOP DAILY [History] Warfarin [Coumadin] 7.5 mg PO DAILY 11/02/15 [History] Albuterol/Ipratropium [DuoNeb 3.0-0.5 MG/3 ML] 3 ml IH TID PRN 04/04/16 [History ] Levothyroxine 200 mcg PO DAILY 04/04/16 [History] Metoprolol Succinate [Toprol XL] 50 mg PO DAILY #30 tab.er 04/04/16 [Rx] Pyrithione Zinc [Dandruff Shampoo] 1 applic TOP DAILY PRN 04/04/16 [History] Acetaminophen [Tylenol] 325 - 650 mg PO Q4H PRN 06/01/17 [History] Albuterol [Ventolin HFA] 2 puff INH Q6H PRN 06/01/17 [History] Clotrimazole [Lotrimin AF 1% Crm] 30 gm .XX BEDTIME 06/01/17 [History] Diltiazem HCl [Cartia Xt] 180 mg PO DAILY 06/01/17 [History] EPINEPHrine [Epinephrine] 0.3 mg IJ ASDIRECTED PRN 06/01/17 [History] Furosemide 40 mg PO WITHLUNCH 06/01/17 [History] Furosemide [Lasix] 60 mg PO DAILY 06/01/17 [History] Gabapentin [Neurontin] 300 mg PO TID 06/01/17 [History] Insulin Glarg,Human.Rec.Analog [Lantus Solostar] 44 units SQ BID 06/01/17 [ History] Levothyroxine 25 mcg PO DAILY 06/01/17 [History] Metaxalone [Skelaxin] 800 mg PO BID PRN 06/01/17 [History] Rosuvastatin [Crestor] 40 mg PO WITHLUNCH 06/01/17 [History] clonazePAM [Clonazepam] 0.125 mg PO BID PRN 06/01/17 [History] risperiDONE 2 mg PO BID 06/01/17 [History] traZODone HCl [Trazodone HCl] 50 mg PO BEDTIME 06/01/17 [History] Clindamycin HCl 300 mg PO Q8HR #30 capsule 06/02/17 [Rx] Doxycycline [Vibramycin] 100 mg PO BID #20 cap 06/02/17 [Rx] Past Medical History HEENT History: Reports: Cataract Other HEENT History: bilat cataract Cardiovascular History: Reports: Afib, Heart Failure, Other (See Below) Other Cardiovascular History: alarm security or surveillance monitor revealed sinus bradycardia, chronic lymphedema, chronic atrial fibrillation on Coumadin but admits in NSR Respiratory History: Reports: Asthma Other Respiratory History: On O2 @ 4L/NC @ home. Gastrointestinal History: Reports: GERD Genitourinary History: Reports: UTI, Recurrent [employer] History: Reports: Other (See Below) Other OB/BYN History: 1, para1, with a normal delivery Musculoskeletal History: Reports: Fracture Other Musculoskeletal History: hx R wrist Neurological History: Reports: Seizure Psychiatric History: Reports: Anxiety, Bipolar Other Psychiatric History: history of substance abuse Endocrine/Metabolic History: Reports: Diabetes, Type II, Obesity/BMI 30+, Other (See Below) Other Endocrine/Metabolic History: diabetic; unknown which type Hematologic History: Reports: Blood Transfusion(s) Dermatologic History: Reports: Decubitus Ulcer, Other (See Below) Other Dermatologic History: dermatitis to lower legs, a slit 3 cm open in butt crack - Infectious Disease History Infectious Disease History: Reports: Chicken Pox Other Infectious Disease History: had tests was cleared of MRSA - Past Surgical History HEENT Surgical History: Reports: Tonsillectomy Female Surgical History: Reports: D&C Social & Family History - Family History Family Medical History: Unobtainable Cardiac: Reports: CAD Respiratory: Reports: Asthma, Sleep Apnea, Other (See Below) Other Respiratory Family Hisory: pt refuses to be tested for sleep apnea but family is pretty sure she has it. Oncologic: Reports: Lung - Tobacco Use Smoking Status *Q: Never Smoker Years of Tobacco use: 21 Packs/Tins Daily: 1 Used Tobacco, but Quit: Yes Month Tobacco Last Used: 15 years ago Second Hand Smoke Exposure: No - Caffeine Use Caffeine Use: Reports: Soda - Alcohol Use Days Per Week of Alcohol Use: 0 - Recreational Drug Use Recreational Drug Use: No Drug Use in Last 12 Months: No Recreational Drug Type: Reports: Marijuana/Hashish Other Recreational Drug Type: Quit using 2011 Recreational Drug Use Frequency: Not Used In Over 6 Months - Living Situation & Occupation Living situation: Reports: Single, with Significant Other Occupation: Unemployed Review of Systems - Review of Systems Review Of Systems: See Below Constitutional: Reports: No Symptoms Eyes: Reports: No Symptoms Ears: Reports: No Symptoms Nose: Reports: No Symptoms Mouth/Throat: Reports: No Symptoms Respiratory: Reports: No Symptoms Cardiovascular: Reports: No Symptoms GI/Abdominal: Reports: No Symptoms Genitourinary: Reports: No Symptoms Musculoskeletal: Reports: No Symptoms Skin: Reports: Erythema (right thigh) Neurological: Reports: No Symptoms Psychiatric: Reports: No Symptoms ED EXAM, GENERAL - Physical Exam Exam: See Below Exam Limited By: Physical Impairment General Appearance: Alert, WD/WN, Obese (morbid) Eye Exam: Bilateral Eye: Normal Inspection Ears: Normal External Exam Ear Exam: Bilateral Ear: Auricle Normal Nose: Normal Inspection, Normal Mucosa Throat/Mouth: Normal Inspection, Normal Lips Head: Atraumatic, Normocephalic Neck: Normal Inspection, Supple, Non-Tender, Full Range of Motion Respiratory/Chest: No Respiratory Distress, Lungs Clear Cardiovascular: Normal Peripheral Pulses, Regular Rate, Rhythm, No Edema Peripheral Pulses: 1+: Brachial (L) GI/Abdominal: Normal Bowel Sounds, Soft, Non-Tender, No Organomegaly (Female) Exam: Deferred Back Exam: Normal Inspection, Full Range of Motion Extremities: Redness (right thigh, improving) Neurological: Alert, Oriented, CN II-XII Intact, Normal Cognition Psychiatric: Normal Affect, Normal Mood Skin Exam: Warm, Dry, Erythema (right thigh) Lymphatic: No Adenopathy Course - Vital Signs Text/Narrative:: 56 y.o.w.f with metabolic syndrome was d/c'd from this Hospital this am. Pt was admitted for cellulitis. Pt came to the ED by EMS becaus she things the PO meds, Doxycycline is "not strong enough" for here. Pt denied any other acute medical issue. BP 134/68 pulse 76 Temp 36.8 pulse ox 96% on RA PE: Morbid obesity, cellulitis R thing, improved Impression: Improving right thigh cellulitis Consultation: Dr. Martin recommended to give Clindamycin 300 mg tid Tx: First dose of Clindamycin was given in the ed Plan: D/C with instructions Last Recorded V/S: Last Vital Signs Temp 36.6 C 06/02/17 18:43 Pulse 66 06/02/17 18:43 Resp 20 06/02/17 18:43 BP 134/46 L 06/02/17 18:43 Pulse Ox 99 06/02/17 18:43 - Orders/Labs/Meds Meds: Medications Discontinued Medications Generic Name Dose Route Start Last Admin Trade Name Freq PRN Reason Stop Dose Admin Clindamycin HCl 300 mg 06/02/17 18:30 06/02/17 18:41 Cleocin PO 06/02/17 18:31 300 mg ONETIME ONE Administration Departure - Departure Time of Disposition: 18:33 Disposition: Home, Self-Care 01 Condition: Good Clinical Impression: Cellulitis Qualifiers: Site of cellulitis: extremity Site of cellulitis of extremity: lower extremity Laterality: right Qualified Code(s): L03.115 - Cellulitis of right lower limb - Discharge Information Prescriptions: Clindamycin HCl 300 mg PO Q8HR #30 capsule Referrals: Hoda Driver NP [Primary Care Provider] - Forms: ED Department Discharge Additional Instructions: Please keep the wound area dry and clean, please take the Abx as recommended, please f/u with your PMD, please come back if your symptom get worse acutely.
[2017-06-02 18:50] VITALS: BP 134/46
== END 2017-06-02 18:50 | disposition home or self-care (01) ==
LOC: FB.ED 18:15
DX: L03.115 Cellulitis of right lower limb (principal); E66.01 Morbid (severe) obesity due to excess calories; E11.9 Type 2 diabetes mellitus without complications; I48.91 Unspecified atrial fibrillation; F31.9 Bipolar disorder, unspecified; Z88.5 Allergy status to narcotic agent; Z88.8 Allergy status to other drugs, medicaments and biological substances; Z88.1 Allergy status to other antibiotic agents; Z79.4 Long term (current) use of insulin; Z79.82 Long term (current) use of aspirin
CPT/HCPCS: 99283; A9270

== ENCOUNTER 2017-07-01 10:11 | Observation (INO) | payer MEDICAID ==
--- NOTE | 2017-07-01 10:33 | EDM.PDOC ---
ED HPI GENERAL MEDICAL PROBLEM - General Stated Complaint: WEAKNESS, HEART ISSUE Time Seen by Provider: 07/01/17 10:11 Source of Information: Reports: Patient, Family History Limitations: Reports: Physical Impairment - History of Present Illness INITIAL COMMENTS - FREE TEXT/NARRATIVE: 56 y.o.w f with multiple medical problems, including metabolic syndrome, came by EMS and family due to weakness and palpitations. Pt takes potassium daily. No N/V/D or any other acute medical issues. Pt is a poor historian. Pt is on home O2 2.5 liter per NC. BP 152/87 Pulse 50 Temp 36.7 RR 15 Pulse ox 100% on 2 liters O2 Onset Date: 07/01/17 Onset Time: 06:00 Duration: Hour(s):, Getting Worse, Intermittent Location: Reports: Chest Quality: Reports: Ache, Dull, Same as Previous Episode Severity: Mild Improves with: Reports: None Worsens with: Reports: None Context: Reports: Other Associated Symptoms: Reports: Chest Pain - Related Data Allergies Allergy/AdvReac Type Severity Reaction Status Date / Time cefazolin sodium [From Ancef] Allergy Rash Verified 07/01/17 11:14 codeine phosphate Allergy Hives Verified 07/01/17 11:14 [From Tylenol-Codeine #3] gatifloxacin Allergy Nausea and Verified 07/01/17 11:14 Vomiting levofloxacin [From Levaquin] Allergy Rash Verified 07/01/17 11:14 methylprednisolone Allergy Cannot Verified 07/01/17 11:14 Remember piperacillin sodium Allergy Hives Verified 07/01/17 11:14 [From Zosyn] tazobactam sodium Allergy Hives Verified 07/01/17 11:14 [From Zosyn] Home Meds: Home Meds FLUoxetine HCl [Fluoxetine HCl] 80 mg PO DAILY 05/25/14 [History] Hyoscyamine Sulfate 0.125 mg PO BID 05/25/14 [History] Insulin Aspart [Novolog Flexpen] 14 units SUBCUT 0700,1200,1800 05/25/14 [ History] Omeprazole [Prilosec] 20 mg PO BIDAC 05/26/14 [History] Phenytoin Sodium Extended [Dilantin] 200 mg PO BID #120 capsule 05/29/14 [Rx] Sucralfate [Carafate] 1 gm PO QIDACANDBED #120 tablet 05/29/14 [Rx] Aspirin 325 mg PO DAILY 12/21/14 [History] Cholecalciferol (Vitamin D3) [Vitamin D3] 4,000 unit PO 1200 12/21/14 [History] Digoxin 125 mcg PO DAILY 03/23/15 [History] Docusate Sodium [Colace] 100 mg PO BID PRN 11/01/15 [History] Glucagon,Human Recombinant [Glucagen] 1 mg IM ASDIRECTED PRN 11/01/15 [History] Loperamide HCl [Loperamide] 2 mg PO ASDIRECTED PRN 11/01/15 [History] Multivitamins/Min/Ca/FA/Iron [Thera-M] 1 tab PO DAILY 11/01/15 [History] Nystatin [Nystatin Crm] 1 applic TOP BID 11/01/15 [History] OXcarbazepine [Trileptal] 300 mg PO BID 11/01/15 [History] Potassium Chloride [Klor-Con M20] 20 meq PO DAILY 11/01/15 [History] Topiramate [Topamax] 50 mg PO DAILY 11/01/15 [History] Topiramate [Topamax] 100 mg PO BEDTIME 11/01/15 [History] Triamcinolone Acetonide [Triamcinolone Acetonide 0.025%] 1 applic TOP DAILY [History] Albuterol/Ipratropium [DuoNeb 3.0-0.5 MG/3 ML] 3 ml IH TID PRN 04/04/16 [History ] Levothyroxine 200 mcg PO BEDTIME 04/04/16 [History] Metoprolol Succinate [Toprol XL] 50 mg PO DAILY #30 tab.er 04/04/16 [Rx] Pyrithione Zinc [Dandruff Shampoo] 1 applic TOP DAILY PRN 04/04/16 [History] Acetaminophen [Tylenol] 325 - 650 mg PO Q4H PRN 06/01/17 [History] Albuterol [Ventolin HFA] 2 puff INH Q6H PRN 06/01/17 [History] Clotrimazole [Lotrimin AF 1% Crm] 30 gm .XX BEDTIME 06/01/17 [History] Diltiazem HCl [Cartia Xt] 180 mg PO DAILY 06/01/17 [History] EPINEPHrine [Epinephrine] 0.3 mg IJ ASDIRECTED PRN 06/01/17 [History] Furosemide 40 mg PO WITHLUNCH 06/01/17 [History] Furosemide [Lasix] 60 mg PO 08 06/01/17 [History] Gabapentin [Neurontin] 300 mg PO TID 06/01/17 [History] Levothyroxine 25 mcg PO DAILY 06/01/17 [History] Metaxalone [Skelaxin] 800 mg PO BID PRN 06/01/17 [History] Rosuvastatin [Crestor] 40 mg PO WITHLUNCH 06/01/17 [History] risperiDONE 4 mg PO BID 06/01/17 [History] traZODone HCl [Trazodone HCl] 50 mg PO BEDTIME 06/01/17 [History] FLUoxetine HCl [Prozac] 80 mg PO DAILY 07/01/17 [History] Insulin Glarg,Human.Rec.Analog [Lantus] 75 units SQ BID 07/01/17 [History] Metolazone [Zaroxolyn] 2.5 mg PO TID 07/01/17 [History] Warfarin Sodium [Jantoven] 7.5 mg PO BEDTIME 07/01/17 [History] Past Medical History HEENT History: Reports: Cataract Other HEENT History: bilat cataract Cardiovascular History: Reports: Afib, Heart Failure, Other (See Below) Other Cardiovascular History: cardiac monitor revealed sinus bradycardia, chronic lymphedema, chronic atrial fibrillation on Coumadin but admits in NSR Respiratory History: Reports: Asthma Other Respiratory History: On O2 @ 4L/NC @ home. Gastrointestinal History: Reports: GERD Genitourinary History: Reports: UTI, Recurrent [employer] History: Reports: Other (See Below) Other OB/BYN History: 1, para1, with a normal delivery Musculoskeletal History: Reports: Fracture Other Musculoskeletal History: hx R wrist Neurological History: Reports: Seizure Psychiatric History: Reports: Anxiety, Bipolar Other Psychiatric History: history of substance abuse Endocrine/Metabolic History: Reports: Diabetes, Type II, Obesity/BMI 30+, Other (See Below) Other Endocrine/Metabolic History: diabetic; unknown which type Hematologic History: Reports: Blood Transfusion(s) Dermatologic History: Reports: Decubitus Ulcer, Other (See Below) Other Dermatologic History: dermatitis to lower legs, a slit 3 cm open in butt crack - Infectious Disease History Infectious Disease History: Reports: Chicken Pox Other Infectious Disease History: had tests was cleared of MRSA - Past Surgical History HEENT Surgical History: Reports: Tonsillectomy Female Surgical History: Reports: D&C Social & Family History - Family History Family Medical History: Unobtainable Cardiac: Reports: CAD Respiratory: Reports: Asthma, Sleep Apnea, Other (See Below) Other Respiratory Family Hisory: pt refuses to be tested for sleep apnea but family is pretty sure she has it. Oncologic: Reports: Lung - Tobacco Use Smoking Status *Q: Never Smoker Years of Tobacco use: 21 Packs/Tins Daily: 1 Used Tobacco, but Quit: Yes Month/Year Tobacco Last Used: 15 years ago Second Hand Smoke Exposure: No - Caffeine Use Caffeine Use: Reports: Soda - Alcohol Use Days Per Week of Alcohol Use: 0 - Recreational Drug Use Recreational Drug Use: No Drug Use in Last 12 Months: No Recreational Drug Type: Reports: Marijuana/Hashish Other Recreational Drug Type: Quit using 2011 Recreational Drug Use Frequency: Not Used In Over 6 Months - Living Situation & Occupation Living situation: Reports: Single, with Significant Other Occupation: Unemployed ED ROS GENERAL - Review of Systems Review Of Systems: Unable To Obtain (poor historian) ED EXAM, GENERAL - Physical Exam Exam: See Below Exam Limited By: Physical Impairment (Body habitus) General Appearance: Alert, Obese (morbid obese) Eye Exam: Bilateral Eye: Normal Inspection Ears: Normal External Exam Ear Exam: Bilateral Ear: Auricle Normal Nose: Normal Inspection Throat/Mouth: Normal Inspection Head: Atraumatic, Normocephalic Neck: Normal Inspection, Supple, Non-Tender, Full Range of Motion Respiratory/Chest: No Respiratory Distress, Lungs Clear, Normal Breath Sounds ( poor insp effort) Cardiovascular: Irregularly Irregular, Other (chronic leg edema) Peripheral Pulses: 1+: Radial (L) GI/Abdominal: Normal Bowel Sounds, Soft, Non-Tender (Female) Exam: Deferred Rectal (Female) Exam: Decreased Rectal Tone Back Exam: Normal Inspection, Full Range of Motion Extremities: Normal Inspection, Normal Range of Motion Neurological: Alert, CN II-XII Intact, Normal Cognition, Abnormal Gait (gate not tested, as per family, pt waks from the bed to the bathroom) Psychiatric: Normal Affect, Depressed Mood Skin Exam: Warm, Dry, Intact, Normal Color, Other (skin break down at buttoc) Lymphatic: No Adenopathy EKG INTERPRETATION EKG Date: 07/01/17 Time: 10:20 Rhythm: NSR Rate (Beats/Min): 54 Thelma: Normal P-Wave: Present QRS: Normal ST-T: Normal QT: Normal Comparison: NA - No Prior EKG Course - Vital Signs Text/Narrative:: 56 y.o.w f with multiple medical problems, including metabolic syndrome, came by EMS and family due to weakness and palpitations. Pt takes potassium daily. No N/V/D or any other acute medical issues. Pt is a poor historian. Pt is on home O2 2.5 liter per NC. BP 152/87 Pulse 50 Temp 36.7 RR 15 Pulse ox 100% on 2 liters PE: Morbid obes 56 y.o.w.f, sedentary live style. Labs: K 2.1 Mg 1.7 Glc 174 carbon dioxide 40 Cl80 Na 124 GFR 52 CXR: NAD Impression: Hypokalemia, hypomagnesia, Hyponatremia, Morbid obesity, multiple medical problems. Tx: Potassium, Mg. Reexam: Potassium level was 2.6 after she received 40meq of potassium and 400mg of Mg. Consultation: Dr. Martin, Hospitalist: Accepted the patient for admission Plan: Admit to M/S tele Last Recorded V/S: Last Vital Signs Temp 36.6 C 07/02/17 13:00 Pulse 59 L 07/02/17 13:00 Resp 18 07/02/17 13:00 BP 121/52 L 07/02/17 13:00 Pulse Ox 96 07/02/17 13:00 - Orders/Labs/Meds Orders: Medication Orders Acetaminophen (Tylenol) 650 mg PO Q4H PRN PRN Reason: Pain Last Admin: 07/02/17 16:14 Dose: 650 mg Albuterol (Ventolin Hfa) 0 gm INH Q6H PRN PRN Reason: Wheezing Albuterol/Ipratropium (Duoneb 3.0-0.5 Mg/3 Ml) 3 ml NEB TIDRT PRN PRN Reason: WHEEZING/SHORTNESS OF BREATH Aspirin (Ecotrin) 325 mg PO DAILY [facility] Last Admin: 07/02/17 10:39 Dose: 325 mg Diltiazem HCl (Cardizem Cd) 180 mg PO DAILY [facility] Last Admin: 07/02/17 10:38 Dose: 180 mg Docusate Sodium (Colace) 100 mg PO BID PRN PRN Reason: Constipation Fluoxetine HCl (Prozac) 80 mg PO DAILY [facility] Last Admin: 07/02/17 10:43 Dose: 80 mg Potassium Chloride 10 meq/ (Premix) 100 mls @ 100 mls/hr IV Q4H [facility] Last Admin: 07/02/17 14:03 Dose: 100 mls/hr Infusion: 07/02/17 10:30 Dose: 100 mls/hr Admin: 07/02/17 09:30 Dose: 100 mls/hr Infusion: 07/02/17 06:21 Dose: 100 mls/hr Admin: 07/02/17 05:21 Dose: 100 mls/hr Infusion: 07/02/17 02:42 Dose: 100 mls/hr Admin: 07/02/17 01:42 Dose: 100 mls/hr Infusion: 07/01/17 22:58 Dose: 100 mls/hr Admin: 07/01/17 21:58 Dose: 100 mls/hr Sodium Chloride (Normal Saline) 250 mls @ 50 mls/hr IV ASDIRECTED [facility] Insulin Aspart (Novolog) 0 unit SUBCUT QIDACANDBED PRN; Protocol PRN Reason: Blood Glucose Levothyroxine Sodium (Levothyroxine) 200 mcg PO BEDTIME [facility] Last Admin: 07/01/17 21:32 Dose: 200 mcg Levothyroxine Sodium (Levothyroxine) 25 mcg PO BEDTIME [facility] Loperamide HCl (Imodium) 2 mg PO ASDIRECTED PRN PRN Reason: Diarrhea Metaxalone (Skelaxin) 800 mg PO BID PRN PRN Reason: Muscle Spasm Multivitamins/Minerals/Vitamin C (Tab-A-Milvia) 1 tab PO DAILY [facility] Last Admin: 07/02/17 10:43 Dose: Hyoscyamine Sulfate 0.125mg TabOwn Med 1 each PO BID [facility] Last Admin: 07/02/17 10:40 Dose: 1 each Admin: 07/01/17 21:33 Dose: 1 each Omeprazole [Prilosec ] 20 Mg CapOwn Med 20 mg PO BIDAC [facility] Last Admin: 07/02/17 07:49 Dose: 20 mg Non-Formulary Medication (Pyrithione Zinc [Dandruff Shampoo]) 1 applic TOP DAILY PRN PRN Reason: SKIN Rosuvastatin [ Crestor] 40 Mg Tab Own Med 40 mg PO WITHLUNCH [facility] Last Admin: 07/02/17 12:04 Dose: 40 mg Non-Formulary Medication (Triamcinolone Acetonide [Triamcinolone Acetonide 0.025 %]) 1 applic TOP DAILY [facility] Non-Formulary Medication (Clotrimazole [Lotrimin Af 1% Crm]) 30 gm .XX BEDTIME [facility] Non-Formulary Medication (Nystatin [Nystatin Crm]) 1 applic TOP BID [facility] Oxcarbazepine (Trileptal) 300 mg PO BID [facility] Last Admin: 07/02/17 10:44 Dose: 300 mg Admin: 07/01/17 21:36 Dose: 300 mg Phenytoin Sodium (Phenytoin) 200 mg PO BID [facility] Last Admin: 07/02/17 10:42 Dose: 200 mg Admin: 07/01/17 21:34 Dose: 200 mg Potassium Chloride (Klor-Con M20) 40 meq PO TID [facility] Last Admin: 07/02/17 14:05 Dose: 40 meq Admin: 07/02/17 10:39 Dose: 40 meq Admin: 07/01/17 21:31 Dose: 40 meq Risperidone (Risperidal) 4 mg PO BID [facility] Last Admin: 07/02/17 11:39 Dose: 4 mg Sodium Chloride (Saline Flush) 10 ml FLUSH ASDIRECTED PRN PRN Reason: Keep Vein Open Last Admin: 07/02/17 11:45 Dose: 10 ml Admin: 07/02/17 05:21 Dose: 10 ml Sucralfate (Carafate) 1 gm PO QIDACANDBED [facility] Last Admin: 07/02/17 12:04 Dose: 1 gm Admin: 07/02/17 10:35 Dose: 1 gm Admin: 07/01/17 21:30 Dose: 1 gm Warfarin Sodium (Coumadin) 7.5 mg PO DAILY@1600 [facility] Last Admin: 07/02/17 16:18 Dose: 7.5 mg Admin: 07/01/17 23:43 Dose: 7.5 mg Labs: Laboratory Tests 03/24/18 03/24/18 03/24/18 Range/Units 10:40 10:40 10:40 WBC 11.3 (4.5-12.0) X10-3/uL RBC 4.38 (3.23-5.20) x10(6)uL Hgb 13.3 (11.5-15.5) g/dL Hct 38.8 (30.0-51.3) % MCV 88.6 (80-96) fL MCH 30.3 (27.7-33.6) pg MCHC 34.2 (32.2-35.4) g/dL RDW 12.5 (11.5-15.5) % Plt Count 219 (125-369) X10(3)uL MPV 8.1 (7.4-10.4) fL Neut % (Auto) 78.4 (46-82) % Lymph % (Auto) 11.6 L (13-37) % Rooks % (Auto) 7.6 (4-12) % Eos % (Auto) 1 (1.0-5.0) % Baso % (Auto) 1 (0-2) % Neut # (Auto) 8.8 H (1.6-8.3) # Lymph # (Auto) 1.3 (0.6-5.0) # Rooks # (Auto) 0.9 (0.0-1.3) # Eos # (Auto) 0.1 (0.0-0.8) # Baso # (Auto) 0.2 (0.0-0.2) # PT (8.7-11.1) INR (0.89-1.13) Sodium 124 L D (135-145) mmol/L Potassium 2.1 L* (3.5-5.3) mmol/L Chloride 80 L* D (100-110) mmol/L Carbon Dioxide 40 H* (21-32) mmol/L BUN 13 (7-18) mg/dL Creatinine 1.1 H (0.55-1.02) mg/dL Est Cr Clr Drug Dosing TNP Estimated GFR (MDRD) 52 L (>60) BUN/Creatinine Ratio 11.8 (9-20) Glucose 172 H (80-116) mg/dL Calcium 8.6 (8.6-10.2) mg/dL Magnesium 1.7 L (1.8-2.5) mg/dL Creatine Kinase 141 (60-160) IU/L Troponin I < 0.017 L (<0.017-0.056) ng/mL 07/01/17 07/01/17 Range/Units 10:40 13:10 WBC (4.5-12.0) X10-3/uL RBC (3.23-5.20) x10(6)uL Hgb (11.5-15.5) g/dL Hct (30.0-51.3) % MCV (80-96) fL MCH (27.7-33.6) pg MCHC (32.2-35.4) g/dL RDW (11.5-15.5) % Plt Count (125-369) X10(3)uL MPV (7.4-10.4) fL Neut % (Auto) (46-82) % Lymph % (Auto) (13-37) % Rooks % (Auto) (4-12) % Eos % (Auto) (1.0-5.0) % Baso % (Auto) (0-2) % Neut # (Auto) (1.6-8.3) # Lymph # (Auto) (0.6-5.0) # Rooks # (Auto) (0.0-1.3) # Eos # (Auto) (0.0-0.8) # Baso # (Auto) (0.0-0.2) # PT 29.9 H (8.7-11.1) INR 2.90 H (0.89-1.13) Sodium (135-145) mmol/L Potassium 2.6 L* (3.5-5.3) mmol/L Chloride (100-110) mmol/L Carbon Dioxide (21-32) mmol/L BUN (7-18) mg/dL Creatinine (0.55-1.02) mg/dL Est Cr Clr Drug Dosing Estimated GFR (MDRD) (>60) BUN/Creatinine Ratio (9-20) Glucose (80-116) mg/dL Calcium (8.6-10.2) mg/dL Magnesium (1.8-2.5) mg/dL Creatine Kinase (60-160) IU/L Troponin I (<0.017-0.056) ng/mL Meds: Medications Generic Name Dose Route Start Last Admin Trade Name Freq PRN Reason Stop Dose Admin Acetaminophen 650 mg 07/01/17 19:39 07/02/17 16:14 Tylenol PO 650 mg Q4H PRN Administration Pain Albuterol 0 gm 07/02/17 04:07 Ventolin Hfa INH Q6H PRN Wheezing Albuterol/Ipratropium 3 ml 07/01/17 19:39 Duoneb 3.0-0.5 Mg/3 Ml NEB TIDRT PRN WHEEZING/SHORTNESS OF BREATH Aspirin 325 mg 07/02/17 09:00 07/02/17 10:39 Ecotrin PO 325 mg DAILY [facility] Administration Diltiazem HCl 180 mg 07/02/17 09:00 07/02/17 10:38 Cardizem Cd PO 180 mg DAILY [facility] Administration Docusate Sodium 100 mg 07/01/17 19:39 Colace PO BID PRN Constipation Fluoxetine HCl 80 mg 07/02/17 09:00 07/02/17 10:43 Prozac PO 80 mg DAILY [facility] Administration Potassium Chloride 10 meq/ 100 mls @ 100 mls/hr 07/01/17 20:00 07/02/17 14:03 Premix IV 100 mls/hr Q4H [facility] Administration Sodium Chloride 250 mls @ 50 mls/hr 07/02/17 17:30 Normal Saline IV ASDIRECTED [facility] Insulin Aspart 0 unit 07/02/17 14:06 Novolog SUBCUT QIDACANDBED PRN Blood Glucose Protocol Levothyroxine Sodium 200 mcg 07/01/17 21:00 07/01/17 21:32 Levothyroxine PO 200 mcg BEDTIME [facility] Administration Levothyroxine Sodium 25 mcg 07/02/17 21:00 Levothyroxine PO BEDTIME [facility] Loperamide HCl 2 mg 07/01/17 19:39 Imodium PO ASDIRECTED PRN Diarrhea Metaxalone 800 mg 07/01/17 19:39 Skelaxin PO BID PRN Muscle Spasm Multivitamins/Minerals/Vitamin C 1 tab 07/02/17 09:00 07/02/17 10:43 Tab-A-Milvia PO Not Given DAILY [facility] Hyoscyamine Sulfate 1 each 07/01/17 21:00 07/02/17 10:40 0.125mg TabOwn Med PO 1 each BID [facility] Administration Omeprazole [Prilosec 20 mg 07/02/17 07:30 07/02/17 07:49 ] 20 Mg CapOwn Med PO 20 mg BIDAC [facility] Administration Non-Formulary Medication 1 applic 07/01/17 19:39 Pyrithione Zinc [Dandruff Shampoo] TOP DAILY PRN SKIN Rosuvastatin [ 40 mg 07/02/17 12:00 07/02/17 12:04 Crestor] 40 Mg Tab PO 40 mg Own Med WITHLUNCH [facility] Administration Non-Formulary Medication 1 applic 07/02/17 09:00 Triamcinolone Acetonide [Triamcinolone Acetonide 0.025%] TOP DAILY [facility] Non-Formulary Medication 30 gm 07/02/17 21:00 Clotrimazole [Lotrimin Af 1% Crm] .XX BEDTIME [facility] Non-Formulary Medication 1 applic 07/02/17 09:00 Nystatin [Nystatin Crm] TOP BID [facility] Oxcarbazepine 300 mg 07/01/17 21:00 07/02/17 10:44 Trileptal PO 300 mg BID [facility] Administration Phenytoin Sodium 200 mg 07/01/17 21:00 07/02/17 10:42 Phenytoin PO 200 mg BID [facility] Administration Potassium Chloride 40 meq 07/01/17 21:00 07/02/17 14:05 Klor-Con M20 PO 40 meq TID [facility] Administration Risperidone 4 mg 07/02/17 11:45 07/02/17 11:39 Risperidal PO 4 mg BID [facility] Administration Sodium Chloride 10 ml 07/02/17 03:08 07/02/17 11:45 Saline Flush FLUSH 10 ml ASDIRECTED PRN Administration Keep Vein Open Sucralfate 1 gm 07/01/17 21:00 07/02/17 12:04 Carafate PO 1 gm QIDACANDBED [facility] Administration Warfarin Sodium 7.5 mg 07/01/17 23:15 07/02/17 16:18 Coumadin PO 7.5 mg DAILY@1600 [facility] Administration Discontinued Medications Generic Name Dose Route Start Last Admin Trade Name Freq PRN Reason Stop Dose Admin Cholecalciferol 4,000 units 07/02/17 12:00 Vitamin D3 PO DAILY@1200 [facility] Digoxin 125 mcg 07/02/17 09:00 Lanoxin PO DAILY [facility] Enoxaparin Sodium 40 mg 07/01/17 19:45 Lovenox SUBCUT Q24H [facility] Furosemide 60 mg 07/02/17 08:00 07/02/17 14:52 Lasix PO Not Given DAILY@0800 [facility] Gabapentin 300 mg 07/01/17 21:00 07/01/17 21:33 Neurontin PO 300 mg TID [facility] Administration Potassium Chloride 100 mls @ 50 mls/hr 07/01/17 12:00 07/01/17 13:47 Kcl 20 Meq In Water 100 Ml IV 07/01/17 15:59 50 mls/hr Q2H [facility] Administration Potassium Chloride Confirm 07/02/17 09:28 07/02/17 10:47 Kcl 10 Meq In Water 100 Ml Administered 07/02/17 09:29 Not Given Dose 100 mls @ as directed .ROUTE .STK-MED ONE Insulin Aspart 14 unit 07/01/17 19:45 07/02/17 14:51 Novolog SUBCUT Not Given TIDMEALS [facility] Levothyroxine Sodium 25 mcg 07/02/17 07:30 07/02/17 14:52 Levothyroxine PO Not Given ACBREAKFAST [facility] Magnesium Oxide 400 mg 07/01/17 11:25 07/01/17 12:10 Magnesium Oxide PO 07/01/17 11:26 400 mg ONETIME ONE Administration Metoprolol Succinate 50 mg 07/02/17 09:00 Toprol Xl PO DAILY [facility] Non-Formulary Medication 30 gm 07/01/17 21:00 07/01/17 23:55 Clotrimazole [Lotrimin Af 1% Crm] .XX Not Given BEDTIME [facility] Non-Formulary Medication 80 mg 07/02/17 09:00 Fluoxetine Hcl [Prozac] PO DAILY [facility] Non-Formulary Medication 14 units 07/02/17 07:00 Insulin Aspart [Novolog Flexpen] SUBCUT 0700,1200,1800 [facility] Insulin Glarg,Human. 75 units 07/01/17 21:00 07/01/17 21:21 Rec.Analog [Lantus] SQ 75 units SolostarOwn Med BID [facility] Administration Non-Formulary Medication 2.5 mg 07/01/17 21:00 07/01/17 23:55 Metolazone [Zaroxolyn] PO Not Given TID [facility] Non-Formulary Medication 1 applic 07/01/17 21:00 07/01/17 23:56 Nystatin [Nystatin Crm] TOP Not Given BID [facility] Non-Formulary Medication 2 mg 07/01/17 21:00 07/01/17 23:56 Risperidone [Risperidone] PO Not Given BID [facility] Risperidone 4 Mg Tab 4 mg 07/01/17 21:11 07/02/17 14:51 Own Med PO Not Given BID [facility] Non-Formulary Medication 2.5 mg 07/02/17 09:00 Metolazone [Zaroxolyn] PO TID [facility] Potassium Chloride 40 meq 07/01/17 12:40 07/01/17 12:43 Klor-Con M20 PO 07/01/17 12:41 40 meq ONETIME ONE Administration Potassium Chloride 40 meq 07/01/17 17:48 07/01/17 18:49 Klor-Con M20 PO 07/01/17 17:49 40 meq ONETIME ONE Administration Risperidone 4 mg 07/02/17 09:15 07/02/17 14:50 Risperidal PO Not Given BID [facility] Topiramate 50 mg 07/02/17 09:00 07/02/17 14:50 Topamax PO Not Given DAILY [facility] Topiramate 100 mg 07/01/17 21:00 07/01/17 21:35 Topamax PO 100 mg BEDTIME [facility] Administration Trazodone HCl 50 mg 07/01/17 21:00 07/01/17 21:36 Trazodone PO Not Given BEDTIME [facility] Departure - Departure Time of Disposition: 17:00 Disposition: Refer to Observation Condition: Fair Clinical Impression: Hypokalemia - Discharge Information
[2017-07-01] MEDS ORDERED: Potassium Chloride 20 MEQ in Premix Bag 2 BAG IV ONE (11:22)
[2017-07-01] MEDS ORDERED: Magnesium Oxide 400 MG Tab PO ONE (11:25)
[2017-07-01] MEDS: Potassium Chloride 100 ML IV SCH ×2 (11:59→13:47)
[2017-07-01] MEDS ORDERED: Potassium Chloride 20 MEQ Tab.ER PO ONE ×2 (12:40→17:48)
[2017-07-01] MEDS ORDERED: Loperamide 2 MG Cap PO PRN (19:39)
[2017-07-01] MEDS ORDERED: PYRITHIONE ZINC TOP PRN (19:39)
[2017-07-01] MEDS ORDERED: Acetaminophen 325 MG Tab PO PRN (19:39)
[2017-07-01] MEDS ORDERED: Docusate Sodium 100 MG Cap PO PRN (19:39)
[2017-07-01] MEDS ORDERED: METAXALONE 800 MG PO PRN (19:39)
[2017-07-01] MEDS ORDERED: Albuterol/Ipratropium 3.0-0.5 MG/3 ML Neb Soln NEB PRN (19:39)
--- NOTE | 2017-07-01 19:44 | PCM.HP ---
H&P History of Present Illness - General Date of Service: 07/01/17 Admit Problem/Dx: Admission Diagnosis/Problem Admission Diagnosis/Problem Hypokalemia - History of Present Illness Initial Comments - Free Text/Narative: Marisol is a 56-year-old female with multiple medical problems, polypharmacy,who was brought in by ambulance because of weakness and lethargy. She complains of this has been progressively getting worse over 2 days. It's associated with muscle twitching, and feels like her legs give out. She denies any chest pain, but has been chronically short of breath and was noted to have a high need for oxygenation but when the tubing was changed she improved dramativally(the cat had chewed on it). She has a history of CHF, edema of the legs, morbid obesity, and has been on multiple doses of Lasix and metolazone. Recently she also started a new diet: "C[employer]ise [employer]" diet, which involves fruits & vegetables but no carbohydrates. She's been on it for 5 days. In the ER she was found to have a potassium of 2.1 and a low magnesium. - Related Data Allergies/Adverse Reactions: Allergies Allergy/AdvReac Type Severity Reaction Status Date / Time cefazolin sodium [From Ancef] Allergy Rash Verified 07/01/17 11:14 codeine phosphate Allergy Hives Verified 07/01/17 11:14 [From Tylenol-Codeine #3] gatifloxacin Allergy Nausea and Verified 07/01/17 11:14 Vomiting levofloxacin [From Levaquin] Allergy Rash Verified 07/01/17 11:14 methylprednisolone Allergy Cannot Verified 07/01/17 11:14 Remember piperacillin sodium Allergy Hives Verified 07/01/17 11:14 [From Zosyn] tazobactam sodium Allergy Hives Verified 07/01/17 11:14 [From Zosyn] Home Medications: Home Meds FLUoxetine HCl [Fluoxetine HCl] 80 mg PO DAILY 05/25/14 [History] Hyoscyamine Sulfate 0.125 mg PO BID 05/25/14 [History] Insulin Aspart [Novolog Flexpen] 14 units SUBCUT 0700,1200,1800 05/25/14 [ History] Omeprazole [Prilosec] 20 mg PO BIDAC 05/26/14 [History] Phenytoin Sodium Extended [Dilantin] 200 mg PO BID #120 capsule 05/29/14 [Rx] Sucralfate [Carafate] 1 gm PO QIDACANDBED #120 tablet 05/29/14 [Rx] Aspirin 325 mg PO DAILY 12/21/14 [History] Cholecalciferol (Vitamin D3) [Vitamin D3] 4,000 unit PO 1200 12/21/14 [History] Digoxin 125 mcg PO DAILY 03/23/15 [History] Docusate Sodium [Colace] 100 mg PO BID PRN 11/01/15 [History] Glucagon,Human Recombinant [Glucagen] 1 mg IM ASDIRECTED PRN 11/01/15 [History] Loperamide HCl [Loperamide] 2 mg PO ASDIRECTED PRN 11/01/15 [History] Multivitamins/Min/Ca/FA/Iron [Thera-M] 1 tab PO DAILY 11/01/15 [History] Nystatin [Nystatin Crm] 1 applic TOP BID 11/01/15 [History] OXcarbazepine [Trileptal] 300 mg PO BID 11/01/15 [History] Potassium Chloride [Klor-Con M20] 20 meq PO DAILY 11/01/15 [History] Topiramate [Topamax] 50 mg PO DAILY 11/01/15 [History] Topiramate [Topamax] 100 mg PO BEDTIME 11/01/15 [History] Triamcinolone Acetonide [Triamcinolone Acetonide 0.025%] 1 applic TOP DAILY [History] Albuterol/Ipratropium [DuoNeb 3.0-0.5 MG/3 ML] 3 ml IH TID PRN 04/04/16 [History ] Levothyroxine 200 mcg PO BEDTIME 04/04/16 [History] Metoprolol Succinate [Toprol XL] 50 mg PO DAILY #30 tab.er 04/04/16 [Rx] Pyrithione Zinc [Dandruff Shampoo] 1 applic TOP DAILY PRN 04/04/16 [History] Acetaminophen [Tylenol] 325 - 650 mg PO Q4H PRN 06/01/17 [History] Albuterol [Ventolin HFA] 2 puff INH Q6H PRN 06/01/17 [History] Clotrimazole [Lotrimin AF 1% Crm] 30 gm .XX BEDTIME 06/01/17 [History] Diltiazem HCl [Cartia Xt] 180 mg PO DAILY 06/01/17 [History] EPINEPHrine [Epinephrine] 0.3 mg IJ ASDIRECTED PRN 06/01/17 [History] Furosemide 40 mg PO WITHLUNCH 06/01/17 [History] Furosemide [Lasix] 60 mg PO 08 06/01/17 [History] Gabapentin [Neurontin] 300 mg PO TID 06/01/17 [History] Levothyroxine 25 mcg PO DAILY 06/01/17 [History] Metaxalone [Skelaxin] 800 mg PO BID PRN 06/01/17 [History] Rosuvastatin [Crestor] 40 mg PO WITHLUNCH 06/01/17 [History] risperiDONE 2 mg PO BID 06/01/17 [History] traZODone HCl [Trazodone HCl] 50 mg PO BEDTIME 06/01/17 [History] FLUoxetine HCl [Prozac] 80 mg PO DAILY 07/01/17 [History] Insulin Glarg,Human.Rec.Analog [Lantus] 75 units SQ BID 07/01/17 [History] Metolazone [Zaroxolyn] 2.5 mg PO TID 07/01/17 [History] Warfarin Sodium [Jantoven] 7.5 mg PO BEDTIME 07/01/17 [History] Past Medical History HEENT History: Reports: Cataract Other HEENT History: bilat cataract Cardiovascular History: Reports: Afib, Heart Failure, Other (See Below) Other Cardiovascular History: 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 Gastrointestinal History: Reports: GERD Genitourinary History: Reports: UTI, Recurrent PARTY DIRECTOR History: Reports: Other (See Below) Other OB/BYN History: 1, para1, with a normal delivery Musculoskeletal History: Reports: Fracture Other Musculoskeletal History: hx R wrist Neurological History: Reports: Seizure Psychiatric History: Reports: Anxiety, Bipolar Other Psychiatric History: history of substance abuse Endocrine/Metabolic History: Reports: Diabetes, Type II, Obesity/BMI 30+, Other (See Below) Other Endocrine/Metabolic History: diabetic; unknown which type Hematologic History: Reports: Blood Transfusion(s) Immunologic History: Reports: None Oncologic (Cancer) History: Reports: None Dermatologic History: Reports: Decubitus Ulcer, Other (See Below) Other Dermatologic History: dermatitis to lower legs, a slit 3 cm open in butt crack - Infectious Disease History Infectious Disease History: Reports: Chicken Pox Other Infectious Disease History: had tests was cleared of MRSA - Past Surgical History HEENT Surgical History: Reports: Tonsillectomy Female Surgical History: Reports: D&C Social & Family History - Family History Family Medical History: Unobtainable Cardiac: Reports: CAD Respiratory: Reports: Asthma, Sleep Apnea, Other (See Below) Other Respiratory Family Hisory: pt refuses to be tested for sleep apnea but family is pretty sure she has it. Oncologic: Reports: Lung - Tobacco Use Smoking Status *Q: Never Smoker Years of Tobacco use: 21 Packs/Tins Daily: 1 Used Tobacco, but Quit: Yes Month/Year Tobacco Last Used: 15 years ago Second Hand Smoke Exposure: No - Caffeine Use Caffeine Use: Reports: Soda - Alcohol Use Days Per Week of Alcohol Use: 0 - Recreational Drug Use Recreational Drug Use: No Drug Use in Last 12 Months: No Recreational Drug Type: Reports: Marijuana/Hashish Other Recreational Drug Type: Quit using 2011 Recreational Drug Use Frequency: Not Used In Over 6 Months - Living Situation & Occupation Living situation: Reports: Single, with Significant Other Occupation: Unemployed H&P Review of Systems - Review of Systems: Review Of Systems: ROS reveals no pertinent complaints other than HPI. Exam - Exam Exam: See Below - Vital Signs Vital Signs: Last Vital Signs Temp 97.7 F 07/01/17 16:45 Pulse 50 L 07/01/17 16:40 Resp 16 07/01/17 16:45 BP 130/65 07/01/17 16:45 Pulse Ox 97 07/01/17 16:45 Weight: 166.106 kg - Exam Quality Assessment: Supplemental Oxygen General: Alert, Oriented, 4 HEENT: PERRLA, Hearing Intact, Mucosa Moist & [place], Nares Patent, Normal Nasal Septum, Posterior Pharynx Clear, Conjunctiva Clear, EOMI, EACs Clear, TMs Clear Neck: Supple, Trachea Midline, 2 Lungs: Clear to Auscultation, Normal Respiratory Effort Cardiovascular: Regular Rate, Regular Rhythm GI/Abdominal Exam: Normal Bowel Sounds, Soft, Non-Tender, No Organomegaly, No Distention, No Abnormal Bruit, No Mass, Pelvis Stable (Female) Exam: Deferred Rectal (Female) Exam: Deferred Back Exam: Normal Inspection, Full Range of Motion, NT Extremities: Normal Inspection, Normal Range of Motion, Non-Tender, No Pedal Edema, Normal Capillary Refill Skin: Warm, Dry, Intact Neurological: Cranial Nerves Intact, Reflexes Equal Bilateral Neuro Extensive - Mental Status: Alert, Oriented x3, Normal Mood/Affect, Normal Cognition Neuro Extensive - Motor, Sensory, Reflexes: CN II-XII Intact, Normal Gait, Normal Reflexes Psychiatric: Alert, Normal Affect, Normal Mood - Patient Data Lab Results Last 24 hrs: Laboratory Results - last 24 hr 07/01/17 07/01/17 07/01/17 Range/Units 14:35 16:05 18:56 Potassium 2.6 L* (3.5-5.3) mmol/L POC Glucose 135 H (80-116) mg/dL Magnesium 1.9 (1.8-2.5) mg/dL Urine Color Yellow (YELLOW) Urine Appearance Slightly cloudy (CLEAR) Urine pH 8.0 H (5.0-6.5) Ur Specific [place] 1.015 (1.010-1.025) Urine Protein Negative (NEGATIVE) mg/dL Urine Glucose (UA) Normal (NEGATIVE) mg/dL Urine Ketones Negative (NEGATIVE) mg/dL Urine Occult Blood Negative (NEGATIVE) Urine Nitrite Negative (NEGATIVE) Urine Bilirubin Negative (NEGATIVE) Urine Urobilinogen Normal (NEGATIVE) mg/dL Ur Leukocyte Esterase Large H (NEGATIVE) Urine RBC 0-5 (0) Urine WBC 10-20 H (0) Ur Squamous Epith Cells Few H (NS,R,O) Urine Bacteria Few H (NS) Coarse Granular Casts Few H (NS) Result Diagrams: 07/01/17 10:40 07/01/17 16:05 EKG INTERPRETATION EKG Date: 07/01/17 [place]: Normal QT: Prolonged (U waves prominent) *Q Meaningful Use (ADM) - VTE *Q VTE Criteria *Q: - Stroke *Q Stroke Criteria *Q: - AMI *Q AMI Criteria *Q: - Problem List (1) Hypokalemia SNOMED Code(s): 43125016 ICD Code: E87.6 - HYPOKALEMIA Status: Acute Priority: Medium Current Visit: No Problem Details: monitor and replace IV as needed (2) Morbid obesity due to excess calories SNOMED Code(s): 254065615 ICD Code: E66.01 - MORBID (SEVERE) OBESITY DUE TO EXCESS CALORIES Status: Acute Current Visit: Yes (3) Complaint of debility and malaise SNOMED Code(s): 592691262 ICD Code: R53.81 - OTHER MALAISE Status: Acute Priority: Medium Current Visit: No Problem Details: (4) Lethargy SNOMED Code(s): 505424684 ICD Code: R53.83 - OTHER FATIGUE Status: Acute Priority: Medium Current Visit: No (5) Benign essential HTN SNOMED Code(s): 1152668 ICD Code: I10 - ESSENTIAL (PRIMARY) HYPERTENSION Status: Chronic Current Visit: No Problem Details: Continues antihypertensive therapy. she will also monitor low sodium diet. (6) Bipolar affective disorder SNOMED Code(s): 77958629 ICD Code: F31.9 - BIPOLAR DISORDER, UNSPECIFIED Status: Chronic Current Visit: No Problem Details: Hold fluoxetine at this time due to difficulty with sleep. Qualifiers: Active/Remission status: currently active Current bipolar episode type: mixed Psychotic features: without psychotic features (7) Chronic congestive heart failure SNOMED Code(s): 63139099 ICD Code: I50.9 - HEART FAILURE, UNSPECIFIED Status: Chronic Priority: Medium Current Visit: No Problem Details: (8) Generalized anxiety disorder SNOMED Code(s): 32671591 ICD Code: F41.1 - GENERALIZED ANXIETY DISORDER Status: Chronic Current Visit: No (9) Vitamin D deficiency SNOMED Code(s): 12686525 ICD Code: E55.9 - VITAMIN D DEFICIENCY, UNSPECIFIED Status: Chronic Current Visit: No Problem Details: Oral supplement (10) Polypharmacy SNOMED Code(s): 186441047 ICD Code: Z79.899 - OTHER [employer] (CURRENT) DRUG THERAPY Status: Acute Current Visit: Yes Problem List Initiated/Reviewed/Updated: Yes Orders Last 24hrs: Active Orders 24 hr Category Date Time Status Accu Check [Blood Glucose Check, Bedside] [RC] ONETIME Care 07/01/17 18:57 Active Blood Glucose Check, Bedside [RC] TIDMEALS Care 07/01/17 19:36 Ordered Communication Order [RC] ROUTINE Care 07/01/17 17:53 Active EKG Documentation Completion [RC] ASDIRECTED Care 07/01/17 19:38 Ordered Height and Weight [RC] DAILY Care 07/01/17 19:36 Ordered Intake and Output [RC] QSHIFT Care 07/01/17 19:37 Ordered Oxygen Therapy [RC] PRN Care 07/01/17 19:36 Ordered VTE/DVT Education [RC] Per Unit Routine Care 07/01/17 19:36 Ordered BASIC METABOLIC PANEL,BMP [CHEM] AM Lab 07/02/17 05:11 Ordered MAGNESIUM [CHEM] AM Lab 07/02/17 05:11 Ordered PHOSPHORUS [CHEM] AM Lab 07/02/17 05:11 Ordered Acetaminophen [Tylenol] Med 07/01/17 19:39 Ordered 650 mg PO Q4H PRN Albuterol [Ventolin HFA] Med 07/01/17 19:39 Ordered 2 puff INH Q6H PRN Albuterol/Ipratropium [DuoNeb 3.0-0.5 MG/3 ML] Med 07/01/17 19:39 Ordered 3 ml IH TID PRN Aspirin [Aspirin] Med 07/02/17 09:00 Ordered 325 mg PO DAILY Cholecalciferol (Vitamin D3) [Vitamin D3] Med 07/02/17 12:00 Ordered 4,000 unit PO 1200 Clotrimazole [Lotrimin AF 1% Crm] Med 07/01/17 21:00 Ordered 30 gm .XX BEDTIME Digoxin [Digoxin] Med 07/02/17 09:00 Ordered 125 mcg PO DAILY Diltiazem HCl [Cartia Xt] Med 07/02/17 09:00 Ordered 180 mg PO DAILY Docusate Sodium [Colace] Med 07/01/17 19:39 Ordered 100 mg PO BID PRN FLUoxetine HCl [Fluoxetine HCl] Med 07/02/17 09:00 Ordered 80 mg PO DAILY FLUoxetine HCl [Prozac] Med 07/02/17 09:00 Ordered 80 mg PO DAILY Furosemide [Lasix] Med 07/02/17 08:00 Ordered 60 mg PO 08 Gabapentin [Neurontin] Med 07/01/17 21:00 Ordered 300 mg PO TID Hyoscyamine Sulfate [Hyoscyamine Sulfate] Med 07/01/17 21:00 Ordered 0.125 mg PO BID Insulin Aspart [NovoLOG] Med 07/02/17 08:00 Active 14 unit SUBCUT TIDMEALS Insulin Aspart [Novolog Flexpen] Med 07/02/17 07:00 Ordered 14 units SUBCUT 0700,1200,1800 Insulin Glarg,Human.Rec.Analog [Lantus] Med 07/01/17 21:00 Ordered 75 units SQ BID Levothyroxine [Levothyroxine] Med 07/01/17 21:00 Ordered 200 mcg PO BEDTIME Levothyroxine [Levothyroxine] Med 07/02/17 09:00 Ordered 25 mcg PO DAILY Loperamide HCl [Loperamide] Med 07/01/17 19:39 Ordered 2 mg PO ASDIRECTED PRN Metaxalone [Skelaxin] Med 07/01/17 19:39 Ordered 800 mg PO BID PRN Metolazone [Zaroxolyn] Med 07/01/17 21:00 Ordered 2.5 mg PO TID Metoprolol Succinate [Toprol XL] Med 07/02/17 09:00 Ordered 50 mg PO DAILY Multivitamins/Min/Ca/FA/Iron [Thera-M] Med 07/02/17 09:00 Ordered 1 tab PO DAILY Nystatin [Nystatin Crm] Med 07/01/17 21:00 Ordered 1 applic TOP BID OXcarbazepine [Trileptal] Med 07/01/17 21:00 Ordered 300 mg PO BID Omeprazole [Prilosec] Med 07/02/17 07:30 Ordered 20 mg PO BIDAC Phenytoin Sodium Extended [Dilantin] Med 07/01/17 21:00 Ordered 200 mg PO BID Potassium Chloride [KCl 10 MEQ in Water 100 ML] 10 meq Med 07/01/17 20:00 Ordered Premix Bag 1 bag IV Q4H Potassium Chloride [Klor-Con M20] Med 07/01/17 21:00 Ordered 40 meq PO TID Pyrithione Zinc [Dandruff Shampoo] Med 07/01/17 19:39 Ordered 1 applic TOP DAILY PRN Rosuvastatin [Crestor] Med 07/02/17 12:00 Ordered 40 mg PO WITHLUNCH Sucralfate [Carafate] Med 07/01/17 21:00 Ordered 1 gm PO QIDACANDBED Topiramate [Topamax] Med 07/01/17 21:00 Ordered 100 mg PO BEDTIME Topiramate [Topamax] Med 07/02/17 09:00 Ordered 50 mg PO DAILY Triamcinolone Acetonide [Triamcinolone Acetonide 0.025% Med 07/02/17 09:00 Ordered ] 1 applic TOP DAILY Warfarin Sodium [Jantoven] Med 07/01/17 21:00 Ordered 7.5 mg PO BEDTIME risperiDONE [risperiDONE] Med 07/01/17 21:00 Ordered 2 mg PO BID traZODone HCl [Trazodone HCl] Med 07/01/17 21:00 Ordered 50 mg PO BEDTIME EKG 12 Lead [EK] AM Ther 07/02/17 05:11 Ordered Medication Orders Potassium Chloride 10 meq/ (Premix) 100 mls @ 100 mls/hr IV Q4H [facility] Insulin Aspart (Novolog) 14 unit SUBCUT TIDMEALS [facility] Non-Formulary Medication (Acetaminophen [Tylenol]) 650 mg PO Q4H PRN PRN Reason: Pain Non-Formulary Medication (Albuterol [Ventolin Hfa]) 2 puff INH Q6H PRN PRN Reason: Wheezing Non-Formulary Medication (Albuterol/Ipratropium [Duoneb 3.0-0.5 Mg/3 Ml]) 3 ml IH TID PRN PRN Reason: WHEEZING/SHORTNESS OF BREATH Non-Formulary Medication (Aspirin [Aspirin]) 325 mg PO DAILY [facility] Non-Formulary Medication (Cholecalciferol (Vitamin D3) [Vitamin D3]) 4,000 unit PO 1200 [facility] Non-Formulary Medication (Clotrimazole [Lotrimin Af 1% Crm]) 30 gm .XX BEDTIME [facility] Non-Formulary Medication (Digoxin [Digoxin]) 125 mcg PO DAILY [facility] Non-Formulary Medication (Diltiazem Hcl [Cartia Xt]) 180 mg PO DAILY [facility] Non-Formulary Medication (Docusate Sodium [Colace]) 100 mg PO BID PRN PRN Reason: Constipation Non-Formulary Medication (Fluoxetine Hcl [Fluoxetine Hcl]) 80 mg PO DAILY [facility] Non-Formulary Medication (Fluoxetine Hcl [Prozac]) 80 mg PO DAILY [facility] Non-Formulary Medication (Furosemide [Lasix]) 60 mg PO 08 [facility] Non-Formulary Medication (Gabapentin [Neurontin]) 300 mg PO TID [facility] Non-Formulary Medication (Hyoscyamine Sulfate [Hyoscyamine Sulfate]) 0.125 mg PO BID [facility] Non-Formulary Medication (Insulin Aspart [Novolog Flexpen]) 14 units SUBCUT 0700,1200,1800 [facility] Non-Formulary Medication (Insulin Glarg,Human.Rec.Analog [Lantus]) 75 units SQ BID [facility] Non-Formulary Medication (Levothyroxine [Levothyroxine]) 25 mcg PO DAILY [facility] Non-Formulary Medication (Levothyroxine [Levothyroxine]) 200 mcg PO BEDTIME [facility] Non-Formulary Medication (Loperamide Hcl [Loperamide]) 2 mg PO ASDIRECTED PRN PRN Reason: Diarrhea Non-Formulary Medication (Metaxalone [Skelaxin]) 800 mg PO BID PRN PRN Reason: Muscle Spasm Non-Formulary Medication (Metolazone [Zaroxolyn]) 2.5 mg PO TID [facility] Non-Formulary Medication (Metoprolol Succinate [Toprol Xl]) 50 mg PO DAILY [facility] Non-Formulary Medication (Multivitamins/Min/Ca/Fa/Iron [Thera-M]) 1 tab PO DAILY [facility] Non-Formulary Medication (Nystatin [Nystatin Crm]) 1 applic TOP BID [facility] Non-Formulary Medication (Omeprazole [Prilosec]) 20 mg PO BIDAC [facility] Non-Formulary Medication (Oxcarbazepine [Trileptal]) 300 mg PO BID [facility] Non-Formulary Medication (Phenytoin Sodium Extended [Dilantin]) 200 mg PO BID [facility] Non-Formulary Medication (Pyrithione Zinc [Dandruff Shampoo]) 1 applic TOP DAILY PRN PRN Reason: SKIN Non-Formulary Medication (Risperidone [Risperidone]) 2 mg PO BID [facility] Non-Formulary Medication (Rosuvastatin [Crestor]) 40 mg PO WITHLUNCH [facility] Non-Formulary Medication (Sucralfate [Carafate]) 1 gm PO QIDACANDBED [facility] Non-Formulary Medication (Topiramate [Topamax]) 50 mg PO DAILY [facility] Non-Formulary Medication (Topiramate [Topamax]) 100 mg PO BEDTIME [facility] Non-Formulary Medication (Trazodone Hcl [Trazodone Hcl]) 50 mg PO BEDTIME [facility] Non-Formulary Medication (Triamcinolone Acetonide [Triamcinolone Acetonide 0.025 %]) 1 applic TOP DAILY [facility] Non-Formulary Medication (Warfarin Sodium [Jantoven]) 7.5 mg PO BEDTIME [facility] Potassium Chloride (Klor-Con M20) 40 meq PO TID [facility] Assessment/Plan Comment:: I reviewed the EKG that showed U waves at the time she presented at 10 the morning. She was given 2 doses of oral potassium, and to dose of IV potassium chloride ,but it only came up to 2.6. She is admitted for observation care,with Tele, and will continue 10 mEq every 4 hours potassium, and oral 40 mg 3 times a day. I will repeat a basic panel and EKG along with the mechanism the morning. The rest of home medications were reconciled and continued.
[2017-07-01] MEDS ORDERED: Enoxaparin 40 MG/0.4 ML Syringe SUBCUT SCH (19:45)
[2017-07-01] MEDS ORDERED: TOPIRAMATE 50 MG PO SCH (21:00)
[2017-07-01] MEDS ORDERED: INSULIN GLARG HUMAN REC ANALOG SQ SCH (21:00)
[2017-07-01] MEDS ORDERED: Gabapentin 300 MG Cap**OWN MED PO SCH (21:00)
[2017-07-01] MEDS ORDERED: traZODone 50 MG Tab**OWN MED PO SCH (21:00)
[2017-07-01] MEDS ORDERED: NYSTATIN TOP SCH (21:00)
[2017-07-01] MEDS ORDERED: METOLAZONE 2.5 MG PO SCH (21:00)
[2017-07-01] MEDS ORDERED: CLOTRIMAZOLE SCH (21:00)
[2017-07-01] MEDS ORDERED: RISPERIDONE 2 MG PO SCH (21:00)
[2017-07-01] MEDS ORDERED: RISPERIDONE 4 MG PO SCH (21:11)
[2017-07-01] MEDS: INSULIN ASPART 100 UNIT/ML SUBCUT SCH (21:16)
[2017-07-01] MEDS: SUCRALFATE 1 GM PO SCH (21:30)
[2017-07-01] MEDS: Potassium Chloride 20 MEQ Tab.ER**OWN MED PO SCH (21:31)
[2017-07-01] MEDS: LEVOTHYROXINE 200 MCG PO SCH (21:32)
[2017-07-01] MEDS: HYOSCYAMINE SULFATE 0.125 MG PO SCH (21:33)
[2017-07-01] MEDS: Phenytoin 100 MG Cap.ER**OWN MED PO SCH (21:34)
[2017-07-01] MEDS: OXCARBAZEPINE 300 MG PO SCH (21:36)
[2017-07-01] MEDS: Potassium Chloride 10 MEQ in Premix Bag 1 BAG IV SCH (21:58)
[2017-07-01] MEDS ORDERED: Warfarin 5 MG Tab**OWN MED PO SCH (23:15)
[2017-07-01] MEDS: Warfarin 5 MG Tab**OWN MED PO SCH (23:43)
[2017-07-02] MEDS: Potassium Chloride 10 MEQ in Premix Bag 1 BAG IV SCH ×6 (01:42→20:03)
[2017-07-02] MEDS ORDERED: Albuterol 8 GM Inhaler INH PRN (04:07)
[2017-07-02] MEDS: Sodium Chloride 0.9% 10 ML Syringe FLUSH PRN ×2 (05:21→11:45)
[2017-07-02] MEDS ORDERED: INSULIN ASPART 14 UNIT SUBCUT SCH (07:00)
[2017-07-02] MEDS ORDERED: Levothyroxine 25 MCG Tab**OWN MED PO SCH ×2 (07:30→21:00)
[2017-07-02] MEDS: OMEPRAZOLE 20 MG PO SCH ×2 (07:49→19:30)
[2017-07-02] MEDS ORDERED: Furosemide 40 MG Tab**OWN MED PO SCH (08:00)
--- NOTE | 2017-07-02 08:56 | PCM.PN ---
- General Info Date of Service: 07/02/17 Subjective Update: Patient slept well. Has no new complaints today. Functional Status: Reports: Pain Controlled, Tolerating Diet - Review of Systems Gastrointestinal: Reports: No Symptoms Genitourinary: Reports: No Symptoms Musculoskeletal: Reports: No Symptoms - Patient Data Vitals - Most Recent: Last Vital Signs Temp 97.9 F 07/01/17 23:51 Pulse 52 L 07/02/17 05:15 Resp 16 07/02/17 05:15 BP 134/60 07/02/17 05:15 Pulse Ox 96 07/02/17 05:15 Weight - Most Recent: 167.24 kg I&O - Last 24 Hours: Intake & Output 07/01/17 07/02/17 07/02/17 22:59 06:59 14:59 Intake Total 500 175 Output Total 300 0 Balance 200 175 Lab Results Last 24 Hours: Laboratory Results - last 24 hr 07/01/17 07/01/17 07/01/17 Range/Units 14:35 16:05 18:56 Sodium (135-145) mmol/L Potassium 2.6 L* (3.5-5.3) mmol/L Chloride (100-110) mmol/L Carbon Dioxide (21-32) mmol/L BUN (7-18) mg/dL Creatinine (0.55-1.02) mg/dL Est Cr Clr Drug Dosing mL/min Estimated GFR (MDRD) (>60) BUN/Creatinine Ratio (9-20) Glucose (80-116) mg/dL POC Glucose 135 H (80-116) mg/dL Calcium (8.6-10.2) mg/dL Phosphorus (2.6-4.6) mg/dL Magnesium 1.9 (1.8-2.5) mg/dL Urine Color Yellow (YELLOW) Urine Appearance Slightly cloudy (CLEAR) Urine pH 8.0 H (5.0-6.5) Ur Specific [place] 1.015 (1.010-1.025) Urine Protein Negative (NEGATIVE) mg/dL Urine Glucose (UA) Normal (NEGATIVE) mg/dL Urine Ketones Negative (NEGATIVE) mg/dL Urine Occult Blood Negative (NEGATIVE) Urine Nitrite Negative (NEGATIVE) Urine Bilirubin Negative (NEGATIVE) Urine Urobilinogen Normal (NEGATIVE) mg/dL Ur Leukocyte Esterase Large H (NEGATIVE) Urine RBC 0-5 (0) Urine WBC 10-20 H (0) Ur Squamous Epith Cells Few H (NS,R,O) Urine Bacteria Few H (NS) Coarse Granular Casts Few H (NS) 07/02/17 Range/Units 06:38 Sodium 125 L (135-145) mmol/L Potassium 2.8 L* (3.5-5.3) mmol/L Chloride 83 L* (100-110) mmol/L Carbon Dioxide 40 H* (21-32) mmol/L BUN 15 (7-18) mg/dL Creatinine 1.0 (0.55-1.02) mg/dL Est Cr Clr Drug Dosing 57.20 mL/min Estimated GFR (MDRD) 58 L (>60) BUN/Creatinine Ratio 15.0 (9-20) Glucose 145 H (80-116) mg/dL POC Glucose (80-116) mg/dL Calcium 8.5 L (8.6-10.2) mg/dL Phosphorus 2.8 (2.6-4.6) mg/dL Magnesium 1.9 (1.8-2.5) mg/dL Urine Color (YELLOW) Urine Appearance (CLEAR) Urine pH (5.0-6.5) Ur Specific [place] (1.010-1.025) Urine Protein (NEGATIVE) mg/dL Urine Glucose (UA) (NEGATIVE) mg/dL Urine Ketones (NEGATIVE) mg/dL Urine Occult Blood (NEGATIVE) Urine Nitrite (NEGATIVE) Urine Bilirubin (NEGATIVE) Urine Urobilinogen (NEGATIVE) mg/dL Ur Leukocyte Esterase (NEGATIVE) Urine RBC (0) Urine WBC (0) Ur Squamous Epith Cells (NS,R,O) Urine Bacteria (NS) Coarse Granular Casts (NS) Med Orders - Current: Current Medications Acetaminophen (Tylenol) 650 mg PO Q4H PRN PRN Reason: Pain Albuterol (Ventolin Hfa) 0 gm INH Q6H PRN PRN Reason: Wheezing Albuterol/Ipratropium (Duoneb 3.0-0.5 Mg/3 Ml) 3 ml NEB TIDRT PRN PRN Reason: WHEEZING/SHORTNESS OF BREATH Aspirin (Ecotrin) 325 mg PO DAILY [facility] Cholecalciferol (Vitamin D3) 4,000 units PO DAILY@1200 [facility] Digoxin (Lanoxin) 125 mcg PO DAILY [facility] Diltiazem HCl (Cardizem Cd) 180 mg PO DAILY [facility] Docusate Sodium (Colace) 100 mg PO BID PRN PRN Reason: Constipation Fluoxetine HCl (Prozac) 80 mg PO DAILY [facility] Gabapentin (Neurontin) 300 mg PO TID [facility] Last Admin: 07/01/17 21:33 Dose: 300 mg Potassium Chloride 10 meq/ (Premix) 100 mls @ 100 mls/hr IV Q4H [facility] Last Admin: 07/02/17 05:21 Dose: 100 mls/hr Levothyroxine Sodium (Levothyroxine) 200 mcg PO BEDTIME [facility] Last Admin: 07/01/17 21:32 Dose: 200 mcg Levothyroxine Sodium (Levothyroxine) 25 mcg PO BEDTIME [facility] Loperamide HCl (Imodium) 2 mg PO ASDIRECTED PRN PRN Reason: Diarrhea Metaxalone (Skelaxin) 800 mg PO BID PRN PRN Reason: Muscle Spasm Metoprolol Succinate (Toprol Xl) 50 mg PO DAILY [facility] Multivitamins/Minerals/Vitamin C (Tab-A-Milvia) 1 tab PO DAILY [facility] Hyoscyamine Sulfate 0.125mg TabOwn Med 1 each PO BID [facility] Last Admin: 07/01/17 21:33 Dose: 1 each Insulin Glarg,Human. Rec.Analog [Lantus] SolostarOwn Med 75 units SQ BID [facility] Last Admin: 07/01/17 21:21 Dose: 75 units Omeprazole [Prilosec ] 20 Mg CapOwn Med 20 mg PO BIDAC [facility] Last Admin: 07/02/17 07:49 Dose: 20 mg Non-Formulary Medication (Pyrithione Zinc [Dandruff Shampoo]) 1 applic TOP DAILY PRN PRN Reason: SKIN Rosuvastatin [ Crestor] 40 Mg Tab Own Med 40 mg PO WITHLUNCH [facility] Non-Formulary Medication (Triamcinolone Acetonide [Triamcinolone Acetonide 0.025 %]) 1 applic TOP DAILY [facility] Risperidone 4 Mg Tab (Own Med) 4 mg PO BID [facility] Non-Formulary Medication (Clotrimazole [Lotrimin Af 1% Crm]) 30 gm .XX BEDTIME [facility] Non-Formulary Medication (Metolazone [Zaroxolyn]) 2.5 mg PO TID [facility] Non-Formulary Medication (Nystatin [Nystatin Crm]) 1 applic TOP BID [facility] Oxcarbazepine (Trileptal) 300 mg PO BID [facility] Last Admin: 07/01/17 21:36 Dose: 300 mg Phenytoin Sodium (Phenytoin) 200 mg PO BID [facility] Last Admin: 07/01/17 21:34 Dose: 200 mg Potassium Chloride (Klor-Con M20) 40 meq PO TID [facility] Last Admin: 07/01/17 21:31 Dose: 40 meq Sodium Chloride (Saline Flush) 10 ml FLUSH ASDIRECTED PRN PRN Reason: Keep Vein Open Last Admin: 07/02/17 05:21 Dose: 10 ml Sucralfate (Carafate) 1 gm PO QIDACANDBED [facility] Last Admin: 07/01/17 21:30 Dose: 1 gm Topiramate (Topamax) 50 mg PO DAILY [facility] Topiramate (Topamax) 100 mg PO BEDTIME [facility] Last Admin: 07/01/17 21:35 Dose: 100 mg Trazodone HCl (Trazodone) 50 mg PO BEDTIME [facility] Last Admin: 07/01/17 21:36 Dose: Not Given Warfarin Sodium (Coumadin) 7.5 mg PO DAILY@1600 [facility] Last Admin: 07/01/17 23:43 Dose: 7.5 mg Discontinued Medications Enoxaparin Sodium (Lovenox) 40 mg SUBCUT Q24H [facility] Furosemide (Lasix) 60 mg PO DAILY@0800 [facility] Potassium Chloride (Kcl 20 Meq In Water 100 Ml) 100 mls @ 50 mls/hr IV Q2H [facility] Stop: 07/01/17 15:59 Last Admin: 07/01/17 13:47 Dose: 50 mls/hr Insulin Aspart (Novolog) 14 unit SUBCUT TIDMEALS [facility] Last Admin: 07/01/17 21:16 Dose: 14 units Levothyroxine Sodium (Levothyroxine) 25 mcg PO ACBREAKFAST [facility] Magnesium Oxide (Magnesium Oxide) 400 mg PO ONETIME ONE Stop: 07/01/17 11:26 Last Admin: 07/01/17 12:10 Dose: 400 mg Non-Formulary Medication (Clotrimazole [Lotrimin Af 1% Crm]) 30 gm .XX BEDTIME [facility] Last Admin: 07/01/17 23:55 Dose: Not Given Non-Formulary Medication (Fluoxetine Hcl [Prozac]) 80 mg PO DAILY [facility] Non-Formulary Medication (Insulin Aspart [Novolog Flexpen]) 14 units SUBCUT 0700,1200,1800 [facility] Non-Formulary Medication (Metolazone [Zaroxolyn]) 2.5 mg PO TID [facility] Last Admin: 07/01/17 23:55 Dose: Not Given Non-Formulary Medication (Nystatin [Nystatin Crm]) 1 applic TOP BID [facility] Last Admin: 07/01/17 23:56 Dose: Not Given Non-Formulary Medication (Risperidone [Risperidone]) 2 mg PO BID [facility] Last Admin: 07/01/17 23:56 Dose: Not Given Potassium Chloride (Klor-Con M20) 40 meq PO ONETIME ONE Stop: 07/01/17 12:41 Last Admin: 07/01/17 12:43 Dose: 40 meq Potassium Chloride (Klor-Con M20) 40 meq PO ONETIME ONE Stop: 07/01/17 17:49 Last Admin: 07/01/17 18:49 Dose: 40 meq - Exam Quality Assessment: No: Skin Breakdown General: Alert, Oriented HEENT: Pupils Equal, Pupils Reactive, EOMI, Mucous Membr. Moist/[place] Neck: Supple Lungs: Clear to Auscultation, Normal Respiratory Effort Cardiovascular: Regular Rate, Regular Rhythm - Problem List & Annotations (1) Hypokalemia SNOMED Code(s): 53965055 Code(s): E87.6 - HYPOKALEMIA Status: Acute Priority: Medium Current Visit: No Annotation/Comment:: monitor and replace IV as needed (2) Morbid obesity due to excess calories SNOMED Code(s): 725448918 Code(s): E66.01 - MORBID (SEVERE) OBESITY DUE TO EXCESS CALORIES Status: Acute Current Visit: Yes (3) Complaint of debility and malaise SNOMED Code(s): 424095726 Code(s): R53.81 - OTHER MALAISE Status: Acute Priority: Medium Current Visit: No Annotation/Comment:: (4) Lethargy SNOMED Code(s): 318386457 Code(s): R53.83 - OTHER FATIGUE Status: Acute Priority: Medium Current Visit: No (5) Benign essential HTN SNOMED Code(s): 3688952 Code(s): I10 - ESSENTIAL (PRIMARY) HYPERTENSION Status: Chronic Current Visit: No Annotation/Comment:: Continues antihypertensive therapy. she will also monitor low sodium diet. (6) Bipolar affective disorder SNOMED Code(s): 34292839 Code(s): F31.9 - BIPOLAR DISORDER, UNSPECIFIED Status: Chronic Current Visit: No Qualifiers: Active/Remission status: currently active Current bipolar episode type: mixed Psychotic features: without psychotic features (7) Chronic congestive heart failure SNOMED Code(s): 09419142 Code(s): I50.9 - HEART FAILURE, UNSPECIFIED Status: Chronic Priority: Medium Current Visit: No Annotation/Comment:: (8) Generalized anxiety disorder SNOMED Code(s): 25310940 Code(s): F41.1 - GENERALIZED ANXIETY DISORDER Status: Chronic Current Visit: No (9) Vitamin D deficiency SNOMED Code(s): 78533131 Code(s): E55.9 - VITAMIN D DEFICIENCY, UNSPECIFIED Status: Chronic Current Visit: No Annotation/Comment:: Oral supplement (10) Polypharmacy SNOMED Code(s): 056826829 Code(s): Z79.899 - OTHER INSPECTOR CLIP ON SUNGLASSES (CURRENT) DRUG THERAPY Status: Acute Current Visit: Yes (11) Hyponatremia syndrome SNOMED Code(s): 4170609 Code(s): E87.1 - HYPO-OSMOLALITY AND HYPONATREMIA Status: Acute Current Visit: Yes - Problem List Review Problem List Initiated/Reviewed/Updated: Yes - My Orders Last 24 Hours: My Active Orders 07/01/17 19:36 Blood Glucose Check, Bedside [] 07,1130,1730 Height and Weight [] 06 07/01/17 19:37 Intake and Output [] 06,14,22 07/01/17 19:38 EKG Documentation Completion [] ASDIRECTED 07/01/17 19:39 Acetaminophen [Tylenol] 650 mg PO Q4H PRN Albuterol/Ipratropium [DuoNeb 3.0-0.5 MG/3 ML] 3 ml NEB TIDRT PRN Docusate Sodium [Colace] 100 mg PO BID PRN Loperamide [Imodium] 2 mg PO ASDIRECTED PRN Metaxalone [Skelaxin] 800 mg PO BID PRN Pyrithione Zinc [Dandruff Shampoo] 1 applic TOP DAILY PRN 07/01/17 20:00 Potassium Chloride [KCl 10 MEQ in Water 100 ML] 10 meq Premix Bag 1 bag IV Q4H 07/01/17 21:00 Gabapentin [Neurontin] 300 mg PO TID Insulin Glarg,Human.Rec.Analog [Lantus] 75 units SQ BID Levothyroxine 200 mcg PO BEDTIME Non-Formulary Medication [NF Drug] 1 each PO BID OXcarbazepine [Trileptal] 300 mg PO BID Phenytoin 200 mg PO BID Potassium Chloride [Klor-Con M20] 40 meq PO TID Sucralfate [Carafate] 1 gm PO QIDACANDBED Topiramate [Topamax] 100 mg PO BEDTIME traZODone 50 mg PO BEDTIME 07/01/17 21:11 risperiDONE [risperiDONE] 4 mg PO BID 07/01/17 23:15 Warfarin [Coumadin] 7.5 mg PO DAILY@1600 07/02/17 03:08 Sodium Chloride 0.9% [Saline Flush] 10 ml FLUSH ASDIRECTED PRN 07/02/17 04:07 Albuterol [Ventolin HFA] 0 gm INH Q6H PRN 07/02/17 05:11 EKG 12 Lead [EK] AM 07/02/17 06:38 GLYCOSYLATED HEMOGLOBIN,HGBA1C [CHEM] Routine 07/02/17 07:30 Omeprazole [Prilosec] 20 mg PO BIDAC 07/02/17 09:00 Aspirin [Ecotrin] 325 mg PO DAILY Digoxin [Lanoxin] 125 mcg PO DAILY Diltiazem [Cardizem CD] 180 mg PO DAILY FLUoxetine [PROzac] 80 mg PO DAILY Metolazone [Zaroxolyn] 2.5 mg PO TID Metoprolol Succinate [Toprol XL] 50 mg PO DAILY Multivitamins [Tab-A-Milvia] 1 tab PO DAILY Nystatin [Nystatin Crm] 1 applic TOP BID Topiramate [Topamax] 50 mg PO DAILY Triamcinolone Acetonide [Triamcinolone Acetonide 0.025%] 1 applic TOP DAILY 07/02/17 12:00 Cholecalciferol (Vitamin D3) [Vitamin D3] 4,000 units PO DAILY@1200 Rosuvastatin [Crestor] 40 mg PO WITHLUNCH 07/02/17 21:00 Clotrimazole [Lotrimin AF 1% Crm] 30 gm .XX BEDTIME Levothyroxine 25 mcg PO BEDTIME 07/02/17 Lunch Fluid Restriction [DIET] 07/03/17 05:11 BASIC METABOLIC PANEL,BMP [CHEM] AM - Plan Plan:: Marisol has polypharmacy. Her potassium and sodium is still low, with a potassium of 2.8 and sodium 125. Osmolarity is 262. 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 I' ve discontinued insulin, and Lasix, Zaroxolyn.. She had an ejection fraction of 65% in 2015, A1c in April was 5.6. I also discontinued gabapentin, vitamin D, metoprolol, and Topamax.
[2017-07-02] MEDS ORDERED: TOPIRAMATE 50 MG PO SCH (09:00)
[2017-07-02] MEDS ORDERED: DIGOXIN 125 MCG PO SCH (09:00)
[2017-07-02] MEDS ORDERED: ASPIRIN 325 MG PO SCH (09:00)
[2017-07-02] MEDS ORDERED: FLUoxetine 20 MG Cap**OWN MED PO SCH (09:00)
[2017-07-02] MEDS ORDERED: DILTIAZEM 180 MG PO SCH (09:00)
[2017-07-02] MEDS ORDERED: NYSTATIN TOP SCH (09:00)
[2017-07-02] MEDS ORDERED: Metoprolol Succinate 50 MG Tab.ER**OWN MED PO SCH (09:00)
[2017-07-02] MEDS ORDERED: Multivitamin Tab PO SCH (09:00)
[2017-07-02] MEDS ORDERED: METOLAZONE 2.5 MG PO SCH (09:00)
[2017-07-02] MEDS ORDERED: FLUOXETINE HCL 80 MG PO SCH (09:00)
[2017-07-02] MEDS ORDERED: risperiDONE 1 MG Tab PO SCH (09:15)
[2017-07-02] MEDS ORDERED: Potassium Chloride 100 ML ONE (09:28)
[2017-07-02] MEDS: SUCRALFATE 1 GM PO SCH ×4 (10:35→21:26)
[2017-07-02] MEDS: Potassium Chloride 20 MEQ Tab.ER**OWN MED PO SCH ×3 (10:39→21:27)
[2017-07-02] MEDS: HYOSCYAMINE SULFATE 0.125 MG PO SCH ×2 (10:40→21:31)
[2017-07-02] MEDS: Phenytoin 100 MG Cap.ER**OWN MED PO SCH ×2 (10:42→21:32)
[2017-07-02] MEDS: OXCARBAZEPINE 300 MG PO SCH ×2 (10:44→21:32)
[2017-07-02] MEDS: risperiDONE 0.5 MG Tab PO SCH ×2 (11:39→21:29)
[2017-07-02] MEDS ORDERED: Cholecalciferol (Vitamin D3) 1,000 Unit Tab**OWN MED PO SCH (12:00)
[2017-07-02] MEDS ORDERED: ROSUVASTATIN 40 MG PO SCH (12:00)
[2017-07-02] MEDS ORDERED: Insulin Aspart 100 Units/ML 3 ML Pen SUBCUT PRN (14:06)
[2017-07-02] MEDS: INSULIN ASPART 100 UNIT/ML SUBCUT SCH (14:51)
[2017-07-02] MEDS: Warfarin 5 MG Tab**OWN MED PO SCH (16:18)
[2017-07-02] MEDS: Sodium Chloride 0.9% 250 ML IV SCH (18:08)
[2017-07-02] MEDS ORDERED: CLOTRIMAZOLE SCH (21:00)
[2017-07-02] MEDS: LEVOTHYROXINE 200 MCG PO SCH (21:28)
[2017-07-03] MEDS: Potassium Chloride 10 MEQ in Premix Bag 1 BAG IV SCH ×3 (00:34→08:51)
[2017-07-03] MEDS: Sodium Chloride 0.9% 250 ML IV SCH ×2 (00:35→08:51)
[2017-07-03] MEDS: SUCRALFATE 1 GM PO SCH (06:43)
[2017-07-03] MEDS: OMEPRAZOLE 20 MG PO SCH (06:43)
--- NOTE | 2017-07-03 08:20 | PCM.PN ---
- General Info Date of Service: 07/03/17 Subjective Update: Marisol has no complaints this morning. She slept well. Sugars have been in the 160s. - Review of Systems HEENT: Reports: No Symptoms Pulmonary: Reports: No Symptoms Cardiovascular: Reports: No Symptoms - Patient Data Vitals - Most Recent: Last Vital Signs Temp 97.5 F 07/03/17 05:00 Pulse 57 L 07/03/17 05:00 Resp 20 07/03/17 05:00 BP 150/68 H 07/03/17 05:00 Pulse Ox 94 L 07/03/17 05:00 Weight - Most Recent: 167.24 kg I&O - Last 24 Hours: Intake & Output 07/02/17 07/03/17 07/03/17 22:59 06:59 14:59 Intake Total 150 Output Total 250 400 Balance -250 -250 Lab Results Last 24 Hours: Laboratory Results - last 24 hr 07/02/17 07/02/17 07/02/17 Range/Units 06:38 12:35 17:28 Sodium (135-145) mmol/L Potassium (3.5-5.3) mmol/L Chloride (100-110) mmol/L Carbon Dioxide (21-32) mmol/L BUN (7-18) mg/dL Creatinine (0.55-1.02) mg/dL Est Cr Clr Drug Dosing mL/min Estimated GFR (MDRD) (>60) BUN/Creatinine Ratio (9-20) Glucose (80-116) mg/dL POC Glucose 196 H 311 H D (80-116) mg/dL Hemoglobin A1c 5.7 (4.5-6.2) % Calcium (8.6-10.2) mg/dL 07/03/17 Range/Units 06:50 Sodium 126 L (135-145) mmol/L Potassium 3.4 L (3.5-5.3) mmol/L Chloride 86 L* (100-110) mmol/L Carbon Dioxide 37 H (21-32) mmol/L BUN 12 (7-18) mg/dL Creatinine 0.8 (0.55-1.02) mg/dL Est Cr Clr Drug Dosing 71.50 mL/min Estimated GFR (MDRD) > 60 (>60) BUN/Creatinine Ratio 15.0 (9-20) Glucose 160 H (80-116) mg/dL POC Glucose (80-116) mg/dL Hemoglobin A1c (4.5-6.2) % Calcium 8.3 L (8.6-10.2) mg/dL Med Orders - Current: Current Medications Acetaminophen (Tylenol) 650 mg PO Q4H PRN PRN Reason: Pain Last Admin: 07/02/17 16:14 Dose: 650 mg Albuterol (Ventolin Hfa) 0 gm INH Q6H PRN PRN Reason: Wheezing Albuterol/Ipratropium (Duoneb 3.0-0.5 Mg/3 Ml) 3 ml NEB TIDRT PRN PRN Reason: WHEEZING/SHORTNESS OF BREATH Aspirin (Ecotrin) 325 mg PO DAILY [facility] Last Admin: 07/02/17 10:39 Dose: 325 mg Diltiazem HCl (Cardizem Cd) 180 mg PO DAILY [facility] Last Admin: 07/02/17 10:38 Dose: 180 mg Docusate Sodium (Colace) 100 mg PO BID PRN PRN Reason: Constipation Fluoxetine HCl (Prozac) 80 mg PO DAILY [facility] Last Admin: 07/02/17 10:43 Dose: 80 mg Potassium Chloride 10 meq/ (Premix) 100 mls @ 100 mls/hr IV Q4H [facility] Last Admin: 07/03/17 04:46 Dose: 100 mls/hr Sodium Chloride (Normal Saline) 250 mls @ 50 mls/hr IV ASDIRECTED [facility] Last Admin: 07/03/17 00:35 Dose: 50 mls/hr Insulin Aspart (Novolog) 0 unit SUBCUT QIDACANDBED PRN; Protocol PRN Reason: Blood Glucose Last Admin: 07/02/17 18:06 Dose: 4 units Levothyroxine Sodium (Levothyroxine) 200 mcg PO BEDTIME [facility] Last Admin: 07/02/17 21:28 Dose: 200 mcg Levothyroxine Sodium (Levothyroxine) 25 mcg PO BEDTIME [facility] Last Admin: 07/02/17 21:28 Dose: 25 mcg Loperamide HCl (Imodium) 2 mg PO ASDIRECTED PRN PRN Reason: Diarrhea Metaxalone (Skelaxin) 800 mg PO BID PRN PRN Reason: Muscle Spasm Multivitamins/Minerals/Vitamin C (Tab-A-Milvia) 1 tab PO DAILY [facility] Last Admin: 03/25/18 10:43 Dose: Not Given Hyoscyamine Sulfate 0.125mg TabOwn Med 1 each PO BID [facility] Last Admin: 07/02/17 21:31 Dose: 1 each Omeprazole [Prilosec ] 20 Mg CapOwn Med 20 mg PO BIDAC [facility] Last Admin: 07/03/17 06:43 Dose: 20 mg Non-Formulary Medication (Pyrithione Zinc [Dandruff Shampoo]) 1 applic TOP DAILY PRN PRN Reason: SKIN Rosuvastatin [ Crestor] 40 Mg Tab Own Med 40 mg PO WITHLUNCH [facility] Last Admin: 07/02/17 12:04 Dose: 40 mg Non-Formulary Medication (Triamcinolone Acetonide [Triamcinolone Acetonide 0.025 %]) 1 applic TOP DAILY [facility] Non-Formulary Medication (Clotrimazole [Lotrimin Af 1% Crm]) 30 gm .XX BEDTIME [facility] Non-Formulary Medication (Nystatin [Nystatin Crm]) 1 applic TOP BID [facility] Oxcarbazepine (Trileptal) 300 mg PO BID [facility] Last Admin: 07/02/17 21:32 Dose: 300 mg Phenytoin Sodium (Phenytoin) 200 mg PO BID [facility] Last Admin: 07/02/17 21:32 Dose: 200 mg Potassium Chloride (Klor-Con M20) 40 meq PO TID [facility] Last Admin: 07/02/17 21:27 Dose: 40 meq Risperidone (Risperidal) 4 mg PO BID [facility] Last Admin: 07/02/17 21:29 Dose: 4 mg Sodium Chloride (Saline Flush) 10 ml FLUSH ASDIRECTED PRN PRN Reason: Keep Vein Open Last Admin: 07/02/17 11:45 Dose: 10 ml Sucralfate (Carafate) 1 gm PO QIDACANDBED [facility] Last Admin: 07/03/17 06:43 Dose: 1 gm Warfarin Sodium (Coumadin) 7.5 mg PO DAILY@1600 [facility] Last Admin: 07/02/17 16:18 Dose: 7.5 mg Discontinued Medications Cholecalciferol (Vitamin D3) 4,000 units PO DAILY@1200 [facility] Digoxin (Lanoxin) 125 mcg PO DAILY [facility] Enoxaparin Sodium (Lovenox) 40 mg SUBCUT Q24H [facility] Furosemide (Lasix) 60 mg PO DAILY@0800 [facility] Last Admin: 03/25/18 14:52 Dose: Not Given Gabapentin (Neurontin) 300 mg PO TID [facility] Last Admin: 07/01/17 21:33 Dose: 300 mg Potassium Chloride (Kcl 20 Meq In Water 100 Ml) 100 mls @ 50 mls/hr IV Q2H [facility] Stop: 07/01/17 15:59 Last Admin: 07/01/17 13:47 Dose: 50 mls/hr Potassium Chloride (Kcl 10 Meq In Water 100 Ml) Confirm Administered Dose 100 mls @ as directed .ROUTE .STK-MED ONE Stop: 07/02/17 09:29 Last Admin: 07/02/17 10:47 Dose: Not Given Insulin Aspart (Novolog) 14 unit SUBCUT TIDMEALS [facility] Last Admin: 07/02/17 14:51 Dose: Not Given Levothyroxine Sodium (Levothyroxine) 25 mcg PO ACBREAKFAST [facility] Last Admin: 07/02/17 14:52 Dose: Not Given Magnesium Oxide (Magnesium Oxide) 400 mg PO ONETIME ONE Stop: 07/01/17 11:26 Last Admin: 07/01/17 12:10 Dose: 400 mg Metoprolol Succinate (Toprol Xl) 50 mg PO DAILY [facility] Non-Formulary Medication (Clotrimazole [Lotrimin Af 1% Crm]) 30 gm .XX BEDTIME [facility] Last Admin: 07/01/17 23:55 Dose: Not Given Non-Formulary Medication (Fluoxetine Hcl [Prozac]) 80 mg PO DAILY [facility] Non-Formulary Medication (Insulin Aspart [Novolog Flexpen]) 14 units SUBCUT 0700,1200,1800 [facility] Insulin Glarg,Human. Rec.Analog [Lantus] SolostarOwn Med 75 units SQ BID [facility] Last Admin: 07/01/17 21:21 Dose: 75 units Non-Formulary Medication (Metolazone [Zaroxolyn]) 2.5 mg PO TID [facility] Last Admin: 07/01/17 23:55 Dose: Not Given Non-Formulary Medication (Nystatin [Nystatin Crm]) 1 applic TOP BID [facility] Last Admin: 07/01/17 23:56 Dose: Not Given Non-Formulary Medication (Risperidone [Risperidone]) 2 mg PO BID [facility] Last Admin: 07/01/17 23:56 Dose: Not Given Risperidone 4 Mg Tab (Own Med) 4 mg PO BID [facility] Last Admin: 07/02/17 14:51 Dose: Not Given Non-Formulary Medication (Metolazone [Zaroxolyn]) 2.5 mg PO TID [facility] Potassium Chloride (Klor-Con M20) 40 meq PO ONETIME ONE Stop: 07/01/17 12:41 Last Admin: 07/01/17 12:43 Dose: 40 meq Potassium Chloride (Klor-Con M20) 40 meq PO ONETIME ONE Stop: 07/01/17 17:49 Last Admin: 07/01/17 18:49 Dose: 40 meq Risperidone (Risperidal) 4 mg PO BID [facility] Last Admin: 07/02/17 14:50 Dose: Not Given Topiramate (Topamax) 50 mg PO DAILY [facility] Last Admin: 07/02/17 14:50 Dose: Not Given Topiramate (Topamax) 100 mg PO BEDTIME [facility] Last Admin: 07/01/17 21:35 Dose: 100 mg Trazodone HCl (Trazodone) 50 mg PO BEDTIME [facility] Last Admin: 07/01/17 21:36 Dose: Not Given - Exam Quality Assessment: Supplemental Oxygen General: Alert, Oriented HEENT: Pupils Equal, Pupils Reactive, EOMI, Mucous Membr. Moist/[place] Neck: Supple Lungs: Clear to Auscultation, Normal Respiratory Effort Cardiovascular: Regular Rate, Regular Rhythm Extremities: Non-Tender, No Pedal Edema. No: Leg Pain, Pallor, Redness - Problem List & Annotations (1) Hypokalemia SNOMED Code(s): 78243391 Code(s): E87.6 - HYPOKALEMIA Status: Acute Priority: Medium Current Visit: Yes Annotation/Comment:: monitor and replace IV as needed (2) Morbid obesity due to excess calories SNOMED Code(s): 594101101 Code(s): E66.01 - MORBID (SEVERE) OBESITY DUE TO EXCESS CALORIES Status: Acute Current Visit: Yes (3) Complaint of debility and malaise SNOMED Code(s): 540960599 Code(s): R53.81 - OTHER MALAISE Status: Acute Priority: Medium Current Visit: No Annotation/Comment:: (4) Lethargy SNOMED Code(s): 760135027 Code(s): R53.83 - OTHER FATIGUE Status: Acute Priority: Medium Current Visit: No (5) Benign essential HTN SNOMED Code(s): 8597668 Code(s): I10 - ESSENTIAL (PRIMARY) HYPERTENSION Status: Chronic Current Visit: No Annotation/Comment:: Continues antihypertensive therapy. she will also monitor low sodium diet. (6) Bipolar affective disorder SNOMED Code(s): 57841457 Code(s): F31.9 - BIPOLAR DISORDER, UNSPECIFIED Status: Chronic Current Visit: No Qualifiers: Active/Remission status: currently active Current bipolar episode type: mixed Psychotic features: without psychotic features (7) Chronic congestive heart failure SNOMED Code(s): 10186690 Code(s): I50.9 - HEART FAILURE, UNSPECIFIED Status: Chronic Priority: Medium Current Visit: No Annotation/Comment:: (8) Generalized anxiety disorder SNOMED Code(s): 02942326 Code(s): F41.1 - GENERALIZED ANXIETY DISORDER Status: Chronic Current Visit: No (9) Vitamin D deficiency SNOMED Code(s): 40163311 Code(s): E55.9 - VITAMIN D DEFICIENCY, UNSPECIFIED Status: Chronic Current Visit: No Annotation/Comment:: Oral supplement (10) Polypharmacy SNOMED Code(s): 219724290 Code(s): Z79.899 - OTHER PIPELINE ENGINEER (CURRENT) DRUG THERAPY Status: Acute Current Visit: Yes (11) Hyponatremia syndrome SNOMED Code(s): 5975513 Code(s): E87.1 - HYPO-OSMOLALITY AND HYPONATREMIA Status: Acute Current Visit: Yes - Problem List Review Problem List Initiated/Reviewed/Updated: Yes - My Orders Last 24 Hours: My Active Orders 07/02/17 07:30 Omeprazole [Prilosec] 20 mg PO BIDAC 07/02/17 09:00 Aspirin [Ecotrin] 325 mg PO DAILY Diltiazem [Cardizem CD] 180 mg PO DAILY FLUoxetine [PROzac] 80 mg PO DAILY Multivitamins [Tab-A-Milvia] 1 tab PO DAILY Nystatin [Nystatin Crm] 1 applic TOP BID Triamcinolone Acetonide [Triamcinolone Acetonide 0.025%] 1 applic TOP DAILY 07/02/17 11:45 risperiDONE [RisperiDAL] 4 mg PO BID 07/02/17 12:00 Rosuvastatin [Crestor] 40 mg PO WITHLUNCH 07/02/17 14:06 Insulin Aspart [NovoLOG] See Protocol SUBCUT QIDACANDBED PRN 07/02/17 17:30 Sodium Chloride 0.9% [Normal Saline] 250 ml IV ASDIRECTED 07/02/17 21:00 Clotrimazole [Lotrimin AF 1% Crm] 30 gm .XX BEDTIME Levothyroxine 25 mcg PO BEDTIME 07/02/17 Lunch Fluid Restriction [DIET] - Plan Plan:: Her sodium is 106 today potassium is up to 3.4. Patient's feels much better. I will discharge her home, I will hold lots of medications has changed yesterday. I will start an oral metformin for diabetes,in place of insulin.
[2017-07-03 08:32] VITALS: BP 134/63
[2017-07-03] MEDS ORDERED: RISPERIDONE 2 MG PO SCH (09:00)
--- NOTE | 2017-07-03 10:40 | CR ---
INDICATION: Short of breath. CHEST: Portable AP upright view of the chest 07/01/2017 was compared with 05/31 and 04/04/2016, again revealing evidence of exogenous obesity. The heart is enlarged. Overlying EKG leads are noted. Detail is markedly limited due to motion and poor inspiration. Heavy markings are again noted in the right upper lung field, likely fibrotic in nature. No definite consolidating pneumonia was identified. However, areas of patchy pneumonia cannot be excluded in the upper lung field on the right and at both lung bases. It is also difficult to exclude a degree of CHF, with an appearance of prominent upper lung field pulmonary vasculature again noted. MTDD
== END 2017-07-03 12:14 | disposition home or self-care (01) ==
LOC: SUPCPDRO 10:11 → FB.ED 10:11 → FB.MS 13:48 → UNDOADMOB 13:51 → FB.MS 13:51 → UNDODISOB 07-03 12:14
PROVIDERS: ADMIT Family Medicine; ATTEND Family Medicine
DX: E87.6 Hypokalemia (principal); E66.01 Morbid (severe) obesity due to excess calories; R53.81 Other malaise; R53.83 Other fatigue; I10 Essential (primary) hypertension; F31.9 Bipolar disorder, unspecified; I50.9 Heart failure, unspecified; F41.1 Generalized anxiety disorder; E55.9 Vitamin D deficiency, unspecified; E87.1 Hypo-osmolality and hyponatremia; I48.91 Unspecified atrial fibrillation; J45.909 Unspecified asthma, uncomplicated; L89.90 Pressure ulcer of unspecified site, unspecified stage; E11.622 Type 2 diabetes mellitus with other skin ulcer; Z79.899 Other long term (current) drug therapy; Z88.1 Allergy status to other antibiotic agents; Z88.8 Allergy status to other drugs, medicaments and biological substances; Z79.82 Long term (current) use of aspirin; Z79.4 Long term (current) use of insulin; Z79.01 Long term (current) use of anticoagulants
CPT/HCPCS: 36415; 71045; 80048; 81001; 82550; 82962; 83036; 83735; 84100; 84132; 84484; 85025; 85610; 93005; 96365; 96366; 99285; A9270-GY; J3480; J7050

== ENCOUNTER 2017-07-04 17:50 | Emergency (ER) | payer MEDICAID ==
[2017-07-04 17:59] VITALS: BP 140/58
--- NOTE | 2017-07-04 18:25 | EDM.PDOC ---
ED HPI GENERAL MEDICAL PROBLEM - General Chief Complaint: Wound Recheck Stated Complaint: ANAL BLEEDING Time Seen by Provider: 07/04/17 17:58 Source of Information: Reports: Patient, EMS, Family History Limitations: Reports: Physical Impairment - History of Present Illness INITIAL COMMENTS - FREE TEXT/NARRATIVE: 56 y.o.w.f, morbid obese with multiple medical issues, including Metabolic syndrome, discharged from this Hospital this morning, came to the ed because her son noticed blood at e buttock fault. Son has seen a cyst a few days ago, which ruptured and blood extruded. Family called 911 and the patient was brought by EMS to the ed, on arrival, the bleeding stopped. No other acute medical issues at this time. BP 140/50 Pulse 92 Temp 36.7 Pulse ox 99% on RA on 4 liters O2 by NC. Onset Date: 07/01/17 Onset Time: 16:00 Duration: Hour(s): Location: Reports: Back Quality: Reports: Dull Improves with: Reports: Rest Worsens with: Reports: Movement Associated Symptoms: Reports: Other (multiple medical issues) - Related Data Allergies Allergy/AdvReac Type Severity Reaction Status Date / Time cefazolin sodium [From Ancef] Allergy Rash Verified 07/04/17 17:57 codeine phosphate Allergy Hives Verified 07/04/17 17:57 [From Tylenol-Codeine #3] gatifloxacin Allergy Nausea and Verified 07/04/17 17:57 Vomiting levofloxacin [From Levaquin] Allergy Rash Verified 07/04/17 17:57 methylprednisolone Allergy Cannot Verified 07/04/17 17:57 Remember piperacillin sodium Allergy Hives Verified 07/04/17 17:57 [From Zosyn] tazobactam sodium Allergy Hives Verified 07/04/17 17:57 [From Zosyn] Home Meds: Home Meds FLUoxetine HCl [Fluoxetine HCl] 80 mg PO DAILY 05/25/14 [History] Omeprazole [Prilosec] 20 mg PO BIDAC 05/26/14 [History] Phenytoin Sodium Extended [Dilantin] 200 mg PO BID #120 capsule 05/29/14 [Rx] Aspirin 325 mg PO DAILY 12/21/14 [History] Docusate Sodium [Colace] 100 mg PO BID PRN 11/01/15 [History] Glucagon,Human Recombinant [Glucagen] 1 mg IM ASDIRECTED PRN 11/01/15 [History] Loperamide HCl [Loperamide] 2 mg PO ASDIRECTED PRN 11/01/15 [History] Multivitamins/Min/Ca/FA/Iron [Thera-M] 1 tab PO DAILY 11/01/15 [History] Nystatin [Nystatin Crm] 1 applic TOP BID 11/01/15 [History] OXcarbazepine [Trileptal] 300 mg PO BID 11/01/15 [History] Triamcinolone Acetonide [Triamcinolone Acetonide 0.025%] 1 applic TOP DAILY [History] Albuterol/Ipratropium [DuoNeb 3.0-0.5 MG/3 ML] 3 ml IH TID PRN 04/04/16 [History ] Levothyroxine 200 mcg PO BEDTIME 04/04/16 [History] Pyrithione Zinc [Dandruff Shampoo] 1 applic TOP DAILY PRN 04/04/16 [History] Acetaminophen [Tylenol] 325 - 650 mg PO Q4H PRN 06/01/17 [History] Albuterol [Ventolin HFA] 2 puff INH Q6H PRN 06/01/17 [History] Clotrimazole [Lotrimin AF 1% Crm] 30 gm .XX BEDTIME 06/01/17 [History] Diltiazem HCl [Cartia Xt] 180 mg PO DAILY 06/01/17 [History] EPINEPHrine [Epinephrine] 0.3 mg IJ ASDIRECTED PRN 06/01/17 [History] Furosemide 40 mg PO WITHLUNCH 06/01/17 [History] Furosemide [Lasix] 60 mg PO 08 06/01/17 [History] Levothyroxine 25 mcg PO DAILY 06/01/17 [History] Metaxalone [Skelaxin] 800 mg PO BID PRN 06/01/17 [History] Rosuvastatin [Crestor] 40 mg PO WITHLUNCH 06/01/17 [History] risperiDONE 2 mg PO BID 06/01/17 [History] traZODone HCl [Trazodone HCl] 50 mg PO BEDTIME 06/01/17 [History] FLUoxetine HCl [Prozac] 80 mg PO DAILY 07/01/17 [History] Warfarin Sodium [Jantoven] 7.5 mg PO BEDTIME 07/01/17 [History] Insulin Glarg,Human.Rec.Analog [Lantus] 75 units SQ BEDTIME #5 vial 07/03/17 [Rx ] Potassium Chloride [Klor-Con M20] 20 meq PO BID #30 tab.er 07/03/17 [Rx] metFORMIN HCl [Metformin HCl] 1,000 mg PO BID #60 tablet 07/03/17 [Rx] Azithromycin 500 mg PO DAILY #3 tablet 07/04/17 [Rx] Past Medical History HEENT History: Reports: Cataract, Other (See Below) Other HEENT History: bilat cataract Cardiovascular History: Reports: Afib, Heart Failure Other Cardiovascular History: 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 History: Reports: Other (See Below) Other OB/BYN History: 1, para1, with a normal delivery Musculoskeletal History: Reports: Fracture, Other (See Below) Other Musculoskeletal History: hx R wrist Neurological History: Reports: Seizure Psychiatric History: Reports: Anxiety, Bipolar Other Psychiatric History: history of substance abuse Endocrine/Metabolic History: Reports: Diabetes, Type II, Obesity/BMI 30+, Other (See Below) Other Endocrine/Metabolic History: diabetic; unknown which type Hematologic History: Reports: Blood Transfusion(s) Immunologic History: Reports: None Oncologic (Cancer) History: Reports: None Dermatologic History: Reports: Decubitus Ulcer, Other (See Below) Other Dermatologic History: dermatitis to lower legs, a slit 3 cm open in butt crack - Infectious Disease History Infectious Disease History: Reports: Chicken Pox Other Infectious Disease History: had tests was cleared of MRSA - Past Surgical History Head Surgeries/Procedures: Reports: None HEENT Surgical History: Reports: Tonsillectomy Female Surgical History: Reports: D&C Social & Family History - Family History Family Medical History: Unobtainable Cardiac: Reports: CAD Respiratory: Reports: Asthma, Sleep Apnea, Other (See Below) Other Respiratory Family Hisory: pt refuses to be tested for sleep apnea but family is pretty sure she has it. Oncologic: Reports: Lung - Tobacco Use Smoking Status *Q: Former Smoker Years of Tobacco use: 21 Packs/Tins Daily: 1 Used Tobacco, but Quit: No Month/Year Tobacco Last Used: quit 15 years ago Second Hand Smoke Exposure: No - Caffeine Use Caffeine Use: Reports: Coffee - Alcohol Use Days Per Week of Alcohol Use: 0 - Recreational Drug Use Recreational Drug Use: No Drug Use in Last 12 Months: No Recreational Drug Type: Reports: Marijuana/Hashish Other Recreational Drug Type: Quit using 2011 Recreational Drug Use Frequency: Not Used In Over 6 Months - Living Situation & Occupation Living situation: Reports: Single, with Significant Other Occupation: Unemployed ED ROS GENERAL - Review of Systems Review Of Systems: Unable To Obtain ED EXAM, SKIN/RASH Exam: See Below Exam Limited By: Physical Impairment General Appearance: Alert, Obese (morbid obese) Eye Exam: Bilateral Eye: EOMI, Normal Inspection Ears: Normal External Exam Nose: Normal Inspection Throat/Mouth: Normal Inspection, Normal Lips, No Airway Compromise Head: Atraumatic, Normocephalic Neck: Normal Inspection, Supple, Non-Tender, Full Range of Motion Respiratory/Chest: No Respiratory Distress, Lungs Clear (poor insp effort), Normal Breath Sounds, Chest Non-Tender Cardiovascular: Normal Peripheral Pulses, Regular Rate, Rhythm Peripheral Pulses: 1+: Brachial (R) GI/Abdominal: Normal Bowel Sounds, Soft, Non-Tender (Female) Exam: Deferred Rectal (Female) Exam: Deferred Back Exam: Normal Inspection, Full Range of Motion Extremities: Normal Inspection, Normal Range of Motion, Other (chronic leg edema ) Neurological: Alert, Oriented, CN II-XII Intact, Normal Cognition, Abnormal Gait (unable to ambulate due to body habitus) Psychiatric: Normal Affect, Normal Mood Skin: Warm, Dry, Wound/Incision (rupture hemrhagic cyst at sacral triangle, no erythema, no active blee.) Location, Skin: Back Lymphatic: No Adenopathy Course - Vital Signs Text/Narrative:: 56 y.o.w.f, morbid obese with multiple medical issues, including Metabolic syndrome, discharged from this Hospital this morning, came to the ed because her son noticed blood at the buttock fault. Son has seen a cyst a few days ago, which ruptured and blood extruded. Family called 911 and the patient was brought by EMS to the ed, on arrival, the bleeding stopped. No other acute medical issues at this time. BP 140/50 Pulse 92 Temp 36.7 Pulse ox 99% on RA on 4 liters O2 by NC. PE: 56 years old w f morbid obese, multiple medical problems, came to the ED with ruptured hemorrhagic cyst at her sacral triangle. No active bleed.no erythema Impression: Ruptured hemorrhagic cyst at her sacral triangle, no active bleed Tx: Abx to prevent an infection Reexam: Improved Plan: D/C with instructions Last Recorded V/S: Last Vital Signs Temp 36.8 C 07/04/17 17:58 Pulse 92 07/04/17 17:58 Resp 18 07/04/17 17:58 BP 140/58 L 07/04/17 17:58 Pulse Ox 99 07/04/17 17:58 - Orders/Labs/Meds Meds: Medications Discontinued Medications Generic Name Dose Route Start Last Admin Trade Name Susan PRN Reason Stop Dose Admin Azithromycin 500 mg 07/04/17 18:26 07/04/17 18:40 Zithromax PO 07/04/17 18:27 500 mg ONETIME ONE Administration Departure - Departure Time of Disposition: 18:24 Disposition: Home, Self-Care 01 Condition: Good Clinical Impression: Hemorrhagic cyst - Discharge Information Prescriptions: Azithromycin 500 mg PO DAILY #3 tablet Referrals: Hoda Driver NP [Primary Care Provider] - Forms: ED Department Discharge Additional Instructions: Please take Azithromycin as recommended, please get your INR, (Coumdine level) as recommended, -please nappy sitz bath daily. Please keep wound area dry and clean, please f/u with your PMD, please come if your symptoms get worse acutely
[2017-07-04] MEDS ORDERED: Azithromycin 500 MG Tab PO ONE (18:26)
== END 2017-07-04 18:45 | disposition home or self-care (01) ==
LOC: FB.ED 17:50
DX: L72.8 Other follicular cysts of the skin and subcutaneous tissue (principal); I50.9 Heart failure, unspecified; E11.9 Type 2 diabetes mellitus without complications; Z88.8 Allergy status to other drugs, medicaments and biological substances; Z88.5 Allergy status to narcotic agent; Z88.1 Allergy status to other antibiotic agents; Z79.899 Other long term (current) drug therapy; Z79.84 Long term (current) use of oral hypoglycemic drugs; Z87.891 Personal history of nicotine dependence
CPT/HCPCS: 99283; A9270

== ENCOUNTER 2017-10-16 17:15 | Emergency (ER) | payer MEDICAID ==
[2017-10-16] MEDS ORDERED: Albuterol/Ipratropium 3.0-0.5 MG/3 ML Neb Soln NEB ONE (17:36)
[2017-10-16] MEDS ORDERED: diphenhydrAMINE 50 MG/ML SDV IVPUSH ONE (17:37)
--- NOTE | 2017-10-16 17:44 | EDM.PDOC ---
ED HPI GENERAL MEDICAL PROBLEM - General Stated Complaint: RT LEG PAIN Time Seen by Provider: 10/16/17 17:15 Source of Information: Reports: Patient, Family History Limitations: Reports: Altered Mental Status, Physical Impairment - History of Present Illness INITIAL COMMENTS - FREE TEXT/NARRATIVE: 57 y.o.w.f with multiple medical issues, including metabolic syndrome, morbid obesity, unable to ambulate due to body habitus, multiple admission in this ED, came with family to the ed because of redness and tenderness of her right lower leg in the past few days. Pt is a poor historian, HPI was given by her family. No N/V/D. Pt has a sedentary live style and needs 24/7 days care by her family. BP 116/68 RR 16 Temp 36.7 Pulse 81 Pulse ox 98% on 4 liter O2 by NC Onset Date: 10/13/17 Onset Time: 08:00 Duration: Day(s):, Getting Worse Location: Reports: Lower Extremity, Right, Generalized Quality: Reports: Ache Severity: Moderate Improves with: Reports: Rest Worsens with: Reports: Movement Context: Reports: Other (morbid obesity, multiple medical issues) Associated Symptoms: Reports: Confusion, Cough, Fever/Chills Rt leg and thigh Pain Score (Numeric/FACES): 10 - Related Data Allergies Allergy/AdvReac Type Severity Reaction Status Date / Time cefazolin sodium [From Ancef] Allergy Rash Verified 10/16/17 17:36 codeine phosphate Allergy Hives Verified 10/16/17 17:36 [From Tylenol-Codeine #3] gatifloxacin Allergy Nausea and Verified 10/16/17 17:36 Vomiting levofloxacin [From Levaquin] Allergy Rash Verified 10/16/17 17:36 methylprednisolone Allergy Cannot Verified 10/16/17 17:36 Remember piperacillin sodium Allergy Hives Verified 10/16/17 17:36 [From Zosyn] tazobactam sodium Allergy Hives Verified 10/16/17 17:36 [From Zosyn] Home Meds: Home Meds Omeprazole [Prilosec] 20 mg PO BIDAC 05/26/14 [History] Phenytoin Sodium Extended [Dilantin] 200 mg PO BID #120 capsule 05/29/14 [Rx] Aspirin 325 mg PO DAILY 12/21/14 [History] Docusate Sodium [Colace] 100 mg PO BID PRN 11/01/15 [History] Glucagon,Human Recombinant [Glucagen] 1 mg IM ASDIRECTED PRN 11/01/15 [History] Loperamide HCl [Loperamide] 2 mg PO ASDIRECTED PRN 11/01/15 [History] Multivitamins/Min/Ca/FA/Iron [Thera-M] 1 tab PO DAILY 11/01/15 [History] Nystatin [Nystatin Crm] 1 applic TOP BID 11/01/15 [History] OXcarbazepine [Trileptal] 300 mg PO BID 11/01/15 [History] Triamcinolone Acetonide [Triamcinolone Acetonide 0.025%] 1 applic TOP DAILY [History] Albuterol/Ipratropium [DuoNeb 3.0-0.5 MG/3 ML] 3 ml IH TID PRN 04/04/16 [History ] Pyrithione Zinc [Dandruff Shampoo] 1 applic TOP DAILY PRN 04/04/16 [History] Acetaminophen [Tylenol] 325 - 650 mg PO Q4H PRN 06/01/17 [History] Albuterol [Ventolin HFA] 2 puff INH Q6H PRN 06/01/17 [History] Clotrimazole [Lotrimin AF 1% Crm] 30 gm .XX BEDTIME 06/01/17 [History] Diltiazem HCl [Cartia Xt] 180 mg PO DAILY 06/01/17 [History] EPINEPHrine [Epinephrine] 0.3 mg IJ ASDIRECTED PRN 06/01/17 [History] Furosemide 40 mg PO WITHLUNCH 06/01/17 [History] Furosemide [Lasix] 60 mg PO 08 06/01/17 [History] Levothyroxine 250 mcg PO DAILY 06/01/17 [History] Metaxalone [Skelaxin] 800 mg PO BID PRN 06/01/17 [History] Rosuvastatin [Crestor] 40 mg PO WITHLUNCH 06/01/17 [History] risperiDONE 2 mg PO BID 06/01/17 [History] traZODone HCl [Trazodone HCl] 100 mg PO BEDTIME 06/01/17 [History] FLUoxetine HCl [Prozac] 80 mg PO DAILY 07/01/17 [History] Warfarin Sodium [Jantoven] 7.5 mg PO SUMOTUWETHSA 07/01/17 [History] metFORMIN HCl [Metformin HCl] 1,000 mg PO BID #60 tablet 07/03/17 [Rx] Cholecalciferol (Vitamin D3) [Vitamin D3] 4,000 unit PO DAILY 10/16/17 [History] Digoxin 0.125 mg PO DAILY 10/16/17 [History] Fluticasone/Salmeterol [Advair 250-50] 1 puff PO BID 10/16/17 [History] Gabapentin [Neurontin] 300 mg PO TID 10/16/17 [History] Hyoscyamine [Levsin] 0.125 mg PO TID 10/16/17 [History] Insulin Aspart [NovoLOG] 16 - 20 units SQ TID 10/16/17 [History] Insulin Glarg,Human.Rec.Analog [Lantus] 75 units SQ BID 10/16/17 [History] Metoprolol Succinate 15 mg PO DAILY 10/16/17 [History] Potassium Chloride [Klor-Con M20] 20 meq PO DAILY 10/16/17 [History] Sucralfate 1 gm PO QID 10/16/17 [History] Topiramate 50 mg PO 08 10/16/17 [History] Topiramate 100 mg PO BEDTIME 10/16/17 [History] clonazePAM [Clonazepam] 0.125 mg PO BID 10/16/17 [History] Past Medical History HEENT History: Reports: Cataract, Other (See Below) Other HEENT History: bilat cataract Cardiovascular History: Reports: Afib, Heart Failure Other Cardiovascular History: 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 Gastrointestinal History: Reports: GERD Genitourinary History: Reports: UTI, Recurrent CUSTOMS INVESTIGATOR History: Reports: Other (See Below) Other CUSTOMS INVESTIGATOR History: 1, para1, with a normal delivery Musculoskeletal History: Reports: Fracture, Other (See Below) Other Musculoskeletal History: hx R wrist Neurological History: Reports: Seizure Psychiatric History: Reports: Anxiety, Bipolar Other Psychiatric History: history of substance abuse Endocrine/Metabolic History: Reports: Diabetes, Type II, Obesity/BMI 30+, Other (See Below) Other Endocrine/Metabolic History: diabetic; unknown which type Hematologic History: Reports: Blood Transfusion(s) Immunologic History: Reports: None Oncologic (Cancer) History: Reports: None Dermatologic History: Reports: Decubitus Ulcer, Other (See Below) Other Dermatologic History: dermatitis to lower legs, a slit 3 cm open in butt crack - Infectious Disease History Infectious Disease History: Reports: Chicken Pox Other Infectious Disease History: had tests was cleared of MRSA - Past Surgical History Head Surgeries/Procedures: Reports: None HEENT Surgical History: Reports: Tonsillectomy Female Surgical History: Reports: D&C Social & Family History - Family History Family Medical History: Unobtainable Cardiac: Reports: CAD Respiratory: Reports: Asthma, Sleep Apnea, Other (See Below) Other Respiratory Family Hisory: pt refuses to be tested for sleep apnea but family is pretty sure she has it. Oncologic: Reports: Lung - Caffeine Use Caffeine Use: Reports: Coffee - Living Situation & Occupation Living situation: Reports: Single, with Significant Other Occupation: Unemployed ED ROS GENERAL - Review of Systems Review Of Systems: Unable To Obtain (confused) ED EXAM, SKIN/RASH Exam: See Below Exam Limited By: Physical Impairment General Appearance: Alert, Moderate Distress, Obese (morbid) Eye Exam: Bilateral Eye: Normal Inspection Ears: Normal External Exam Nose: Normal Inspection, Normal Mucosa Throat/Mouth: Normal Lips, Normal Voice, No Airway Compromise Head: Atraumatic, Normocephalic Neck: Normal Inspection, Supple, Non-Tender, Full Range of Motion Respiratory/Chest: No Respiratory Distress, Lungs Clear (pooe insp effoer), No Accessory Muscle Use Cardiovascular: Normal Peripheral Pulses, Regular Rate, Rhythm Peripheral Pulses: 1+: Brachial (L) GI/Abdominal: Normal Bowel Sounds, Soft, Non-Tender (Female) Exam: Deferred Rectal (Female) Exam: Deferred Back Exam: Normal Inspection Extremities: Limited Range of Motion (due to body habitus), Increased Warmth, Redness (right lower leg) Neurological: Alert, CN II-XII Intact, No Motor/Sensory Deficits, Other (no focal weakness, unable to ambulate, wheel chair bound) Psychiatric: Normal Affect, Depressed Mood Skin: Warm, Rash (Right lower extremity) Characteristics: Maculopapular, Erythematous Lymphatic: No Adenopathy Course - Vital Signs Text/Narrative:: 57 y.o.w.f with multiple medical issues, including metabolic syndrome, morbid obesity, unable to ambulate due to body habitus, multiple admission in this ED, came with family to the ed because of redness and tenderness of her right lower leg in the past few days. Pt is a poor historian, HPI was given by her family. No N/V/D. Pt has a sedentary live style and needs 24/7 days care by her family. BP 116/68 RR 16 Temp 36.7 Pulse 81 Pulse ox 98% on 4 liter O2 by NC PE: Morbid obese 57 y.o.w.f with multiple medical issues came to the ed due to right lower leg redness Imaging: CXR: NAD Labs: WBC 19.6 H/H Nl Lactic acid 3.9 BCxX2 results are pending BUN 15 Cr 1.3 GFR 42 CO2 35 Na 140 K 3.7 Impression: sepsis. Cellulitis RL extremity, UTI Tx: Bactrim, Vancomycin (pt has multiple allergies 7.29 pm: Consultation: Dr. Martin, Hospitalist: No admission, knows pt well, Vitals are Nl, send home on Bactrim, F/U as outpatient Reexam: Pt was now confused to time and situation "is not herself), her right lower leg was wormer has her redness at her RL lower leg expanded 8.17 PM Consultation: Telepharmacy: Saw Allergy list, recommended, Vancomycin 1.5 gm Q 24 hours 8.20 pm Consultation: Dr. Martni: Transfer to [place] 8.39 pm consultation: Dr. Linder, Hospitalist [facility]: Accepted the pt for transfer, admission and further care, EMS should bring the pt to the ED. Plan: Transfer to [facility], Family was informed and agreed. Last Recorded V/S: Last Vital Signs Temp 39.6 C H 10/16/17 19:45 Pulse 81 10/16/17 17:15 Resp 16 10/16/17 17:15 BP 116/67 10/16/17 17:15 Pulse Ox 98 10/16/17 17:15 - Orders/Labs/Meds Orders: Active Orders 24 hr Category Date Time Status RT Aerosol Therapy [RC] ASDIRECTED Care 10/16/17 17:36 Active CXR [Chest 1V Frontal] [CR] Stat Exams 10/16/17 19:45 Taken CULTURE BLOOD [BC] Urgent Lab 10/16/17 18:30 Received CULTURE BLOOD [BC] Urgent Lab 10/16/17 19:20 Received CULTURE URINE [RM] Stat Lab 10/16/17 20:36 Received UA W/MICROSCOPIC [URIN] Stat Lab 10/16/17 20:36 Ordered Sodium Chloride 0.9% [Saline Flush] Med 10/16/17 19:09 Active 10 ml FLUSH ASDIRECTED PRN Blood Culture x2 Reflex Set [OM.PC] Urgent Oth 10/16/17 17:36 Ordered Peripheral IV Insertion Adult [OM.PC] Routine Oth 10/16/17 19:09 Ordered Medication Orders Sodium Chloride (Saline Flush) 10 ml FLUSH ASDIRECTED PRN PRN Reason: Keep Vein Open Labs: Laboratory Tests 10/16/17 10/16/17 10/16/17 Range/Units 18:30 18:30 18:30 WBC 19.2 H (4.5-12.0) X10-3/uL RBC 4.56 (3.23-5.20) x10(6)uL Hgb 13.8 (11.5-15.5) g/dL Hct 41.2 (30.0-51.3) % MCV 90.2 (80-96) fL MCH 30.3 (27.7-33.6) pg MCHC 33.6 (32.2-35.4) g/dL RDW 13.9 (11.5-15.5) % Plt Count 243 (125-369) X10(3)uL MPV 8.6 (7.4-10.4) fL Add Manual Diff Yes Neutrophils % (Manual) 88 H (46-82) % Band Neutrophils % 1 (0-6) % Lymphocytes % (Manual) 5 L (13-37) % Monocytes % (Manual) 6 (4-12) % Sodium 140 D (135-145) mmol/L Potassium 3.7 (3.5-5.3) mmol/L Chloride 96 L D (100-110) mmol/L Carbon Dioxide 35 H (21-32) mmol/L BUN 15 (7-18) mg/dL Creatinine 1.3 H (0.55-1.02) mg/dL Est Cr Clr Drug Dosing 45.23 mL/min Estimated GFR (MDRD) 42 L (>60) BUN/Creatinine Ratio 11.5 (9-20) Glucose 109 (80-116) mg/dL Lactic Acid 3.7 H (0.4-2.2) mmol/L Calcium 8.7 (8.6-10.2) mg/dL Urine Color (YELLOW) Urine Appearance (CLEAR) Urine pH (5.0-6.5) Ur Specific [place] (1.010-1.025) Urine Protein (NEGATIVE) mg/dL Urine Glucose (UA) (NEGATIVE) mg/dL Urine Ketones (NEGATIVE) mg/dL Urine Occult Blood (NEGATIVE) Urine Nitrite (NEGATIVE) Urine Bilirubin (NEGATIVE) Urine Urobilinogen (NEGATIVE) mg/dL Ur Leukocyte Esterase (NEGATIVE) Urine RBC (0) Urine WBC (0) Ur Squamous Epith Cells (NS,R,O) Urine Bacteria (NS) 10/16/17 Range/Units 20:36 WBC (4.5-12.0) X10-3/uL RBC (3.23-5.20) x10(6)uL Hgb (11.5-15.5) g/dL Hct (30.0-51.3) % MCV (80-96) fL MCH (27.7-33.6) pg MCHC (32.2-35.4) g/dL RDW (11.5-15.5) % Plt Count (125-369) X10(3)uL MPV (7.4-10.4) fL Add Manual Diff Neutrophils % (Manual) (46-82) % Band Neutrophils % (0-6) % Lymphocytes % (Manual) (13-37) % Monocytes % (Manual) (4-12) % Sodium (135-145) mmol/L Potassium (3.5-5.3) mmol/L Chloride (100-110) mmol/L Carbon Dioxide (21-32) mmol/L BUN (7-18) mg/dL Creatinine (0.55-1.02) mg/dL Est Cr Clr Drug Dosing mL/min Estimated GFR (MDRD) (>60) BUN/Creatinine Ratio (9-20) Glucose (80-116) mg/dL Lactic Acid (0.4-2.2) mmol/L Calcium (8.6-10.2) mg/dL Urine Color Yellow (YELLOW) Urine Appearance Cloudy (CLEAR) Urine pH 7.0 H (5.0-6.5) Ur Specific [place] 1.010 (1.010-1.025) Urine Protein Negative (NEGATIVE) mg/dL Urine Glucose (UA) Normal (NEGATIVE) mg/dL Urine Ketones Negative (NEGATIVE) mg/dL Urine Occult Blood Negative (NEGATIVE) Urine Nitrite Negative (NEGATIVE) Urine Bilirubin Negative (NEGATIVE) Urine Urobilinogen Normal (NEGATIVE) mg/dL Ur Leukocyte Esterase Moderate H (NEGATIVE) Urine RBC 0-5 (0) Urine WBC 5-10 (0) Ur Squamous Epith Cells Moderate H (NS,R,O) Urine Bacteria Moderate H (NS) Meds: Medications Generic Name Dose Route Start Last Admin Trade Name Freq PRN Reason Stop Dose Admin Sodium Chloride 10 ml 10/16/17 19:09 Saline Flush FLUSH ASDIRECTED PRN Keep Vein Open Discontinued Medications Generic Name Dose Route Start Last Admin Trade Name Freq PRN Reason Stop Dose Admin Acetaminophen 650 mg 10/16/17 18:26 10/16/17 18:45 Tylenol PO 10/16/17 18:27 650 mg NOW ONE Administration Albuterol/Ipratropium 3 ml 10/16/17 17:36 10/16/17 18:27 Duoneb 3.0-0.5 Mg/3 Ml NEB 10/16/17 17:37 3 ml ONETIME ONE Administration Diphenhydramine HCl 25 mg 10/16/17 17:37 10/16/17 17:46 Benadryl IVPUSH 10/16/17 17:38 Not Given ONETIME ONE Vancomycin HCl 1,500 mg/ 250 mls @ 167 mls/hr 10/16/17 20:22 10/16/17 20:59 Sodium Chloride IV 10/16/17 21:51 167 mls/hr ONETIME STA Administration Trimethoprim/Sulfamethoxazole 1 tab 10/16/17 19:32 10/16/17 20:15 Septra Ds PO 10/16/17 19:33 1 tab ONETIME ONE Administration Departure - Departure Time of Disposition: 20:20 Disposition: DC/Tfer to Acute Hospital 02 Condition: Fair Clinical Impression: Sepsis - Discharge Information Referrals: Hoda Driver NP [Primary Care Provider] - - My Orders Last 24 Hours: My Active Orders 10/16/17 17:36 RT Aerosol Therapy [RC] ASDIRECTED Blood Culture x2 Reflex Set [OM.PC] Urgent 10/16/17 18:30 CULTURE BLOOD [BC] Urgent 10/16/17 19:09 Sodium Chloride 0.9% [Saline Flush] 10 ml FLUSH ASDIRECTED PRN Peripheral IV Insertion Adult [OM.PC] Routine 10/16/17 19:20 CULTURE BLOOD [BC] Urgent 10/16/17 19:45 CXR [Chest 1V Frontal] [CR] Stat 10/16/17 20:36 CULTURE URINE [RM] Stat UA W/MICROSCOPIC [URIN] Stat - Assessment/Plan Last 24 Hours: My Active Orders 10/16/17 17:36 RT Aerosol Therapy [RC] ASDIRECTED Blood Culture x2 Reflex Set [OM.PC] Urgent 10/16/17 18:30 CULTURE BLOOD [BC] Urgent 10/16/17 19:09 Sodium Chloride 0.9% [Saline Flush] 10 ml FLUSH ASDIRECTED PRN Peripheral IV Insertion Adult [OM.PC] Routine 10/16/17 19:20 CULTURE BLOOD [BC] Urgent 10/16/17 19:45 CXR [Chest 1V Frontal] [CR] Stat 10/16/17 20:36 CULTURE URINE [RM] Stat UA W/MICROSCOPIC [URIN] Stat
[2017-10-16] MEDS ORDERED: Acetaminophen 325 MG Tab PO ONE (18:26)
[2017-10-16] MEDS ORDERED: Sodium Chloride 0.9% 10 ML Syringe FLUSH PRN (19:09)
[2017-10-16] MEDS ORDERED: Sulfamethoxazole/Trimethoprim 800-160 MG Tab PO ONE (19:32)
--- NOTE | 2017-10-17 11:29 | CR ---
INDICATION: Cough, fever. CHEST: Portable AP upright view of the chest was obtained 10/16/2017 and compared with 07/01/2017 and 05/31/2017, again revealing rather heavy markings in the right upper lung field and in both lower lung osorio - lung bases. This appearance is essentially unchanged from the previous examination. Additionally , prominent upper lung field pulmonary vasculature raises question of CHF with the heart not grossly enlarged but at the upper limits of normal in size. Full inspiration PA and lateral views of the chest may be helpful for further evaluation, when clinically possible. IMPRESSION: Chest appears fairly stable, compared with previous examinations. The appearance makes it difficult to exclude CHF or other cause of pulmonary vascular congestion, as well as areas of pneumonia versus fibrosis, which is felt to be more likely. Certainly, areas of recurrent or superimposed pneumonia on fibrosis cannot be excluded. MTDD
[2017-10-17 13:13] VITALS: BP 134/100
== END 2017-10-16 21:28 ==
LOC: FB.ED 17:15
DX: A41.9 Sepsis, unspecified organism (principal); L03.115 Cellulitis of right lower limb; N39.0 Urinary tract infection, site not specified; I50.9 Heart failure, unspecified; I48.91 Unspecified atrial fibrillation; E11.9 Type 2 diabetes mellitus without complications; F41.9 Anxiety disorder, unspecified; F31.9 Bipolar disorder, unspecified; J45.909 Unspecified asthma, uncomplicated; Z79.899 Other long term (current) drug therapy; Z79.4 Long term (current) use of insulin; Z79.01 Long term (current) use of anticoagulants; Z79.82 Long term (current) use of aspirin; Z88.5 Allergy status to narcotic agent; Z88.1 Allergy status to other antibiotic agents; Z88.8 Allergy status to other drugs, medicaments and biological substances
CPT/HCPCS: 36415; 71045; 80048; 81001; 83605; 85025; 87040; 87077; 87086; 94640; 99284; A9270; J3370; J7050; J7620; 87186; 96365

== ENCOUNTER 2017-11-25 19:34 | Emergency (ER) | payer MEDICAID ==
--- NOTE | 2017-11-25 19:55 | EDM.PDOC ---
ED HPI GENERAL MEDICAL PROBLEM - General Stated Complaint: LEG PAIN Time Seen by Provider: 11/25/17 19:34 Source of Information: Reports: Patient, Family History Limitations: Reports: Physical Impairment - History of Present Illness INITIAL COMMENTS - FREE TEXT/NARRATIVE: 57 y.o.w.f with with multiple medical issues, unable to ambulate due to body habitus, came with her family to the ed due to indurating of her left lower leg. Pt had multiple visits in this ED, pt denied any other acute medical issues. BP 136/95 Pils ox 99% on 4 liter O2 by NC (baseline) Segundo 36.8 Pulse 57 Onset Date: 11/23/17 Onset Time: 08:00 Duration: Day(s):, Getting Worse Location: Reports: Lower Extremity, Left Quality: Reports: Ache, Dull, Pressure Severity: Mild Improves with: Reports: Rest Worsens with: Reports: Movement Context: Reports: Other Associated Symptoms: Reports: Other (pt has multiple medical issues) Right Lower Feet Pain Score (Numeric/FACES): 8 - Related Data Allergies Allergy/AdvReac Type Severity Reaction Status Date / Time cefazolin sodium [From Ancef] Allergy Rash Verified 10/16/17 17:36 codeine phosphate Allergy Hives Verified 10/16/17 17:36 [From Tylenol-Codeine #3] gatifloxacin Allergy Nausea and Verified 10/16/17 17:36 Vomiting levofloxacin [From Levaquin] Allergy Rash Verified 10/16/17 17:36 methylprednisolone Allergy Cannot Verified 10/16/17 17:36 Remember piperacillin sodium Allergy Hives Verified 10/16/17 17:36 [From Zosyn] tazobactam sodium Allergy Hives Verified 10/16/17 17:36 [From Zosyn] Home Meds: Home Meds Omeprazole [Prilosec] 20 mg PO BIDAC 05/26/14 [History] Phenytoin Sodium Extended [Dilantin] 200 mg PO BID #120 capsule 05/29/14 [Rx] Aspirin 325 mg PO DAILY 12/21/14 [History] Docusate Sodium [Colace] 100 mg PO BID PRN 11/01/15 [History] Glucagon,Human Recombinant [Glucagen] 1 mg IM ASDIRECTED PRN 11/01/15 [History] Loperamide HCl [Loperamide] 2 mg PO ASDIRECTED PRN 11/01/15 [History] Multivitamins/Min/Ca/FA/Iron [Thera-M] 1 tab PO DAILY 11/01/15 [History] Nystatin [Nystatin Crm] 1 applic TOP BID 11/01/15 [History] OXcarbazepine [Trileptal] 300 mg PO BID 11/01/15 [History] Triamcinolone Acetonide [Triamcinolone Acetonide 0.025%] 1 applic TOP DAILY [History] Albuterol/Ipratropium [DuoNeb 3.0-0.5 MG/3 ML] 3 ml IH TID PRN 04/04/16 [History ] Pyrithione Zinc [Dandruff Shampoo] 1 applic TOP DAILY PRN 04/04/16 [History] Acetaminophen [Tylenol] 325 - 650 mg PO Q4H PRN 06/01/17 [History] Albuterol [Ventolin HFA] 2 puff INH Q6H PRN 06/01/17 [History] Clotrimazole [Lotrimin AF 1% Crm] 30 gm .XX BEDTIME 06/01/17 [History] Diltiazem HCl [Cartia Xt] 180 mg PO DAILY 06/01/17 [History] EPINEPHrine [Epinephrine] 0.3 mg IJ ASDIRECTED PRN 06/01/17 [History] Furosemide 40 mg PO WITHLUNCH 06/01/17 [History] Furosemide [Lasix] 60 mg PO 08 06/01/17 [History] Levothyroxine 250 mcg PO DAILY 06/01/17 [History] Metaxalone [Skelaxin] 800 mg PO BID PRN 06/01/17 [History] Rosuvastatin [Crestor] 40 mg PO WITHLUNCH 06/01/17 [History] risperiDONE 2 mg PO BID 06/01/17 [History] traZODone HCl [Trazodone HCl] 100 mg PO BEDTIME 06/01/17 [History] FLUoxetine HCl [Prozac] 80 mg PO DAILY 07/01/17 [History] Warfarin Sodium [Jantoven] 7.5 mg PO SUMOTUWETHSA 07/01/17 [History] metFORMIN HCl [Metformin HCl] 1,000 mg PO BID #60 tablet 07/03/17 [Rx] Cholecalciferol (Vitamin D3) [Vitamin D3] 4,000 unit PO DAILY 10/16/17 [History] Digoxin 0.125 mg PO DAILY 10/16/17 [History] Fluticasone/Salmeterol [Advair 250-50] 1 puff PO BID 10/16/17 [History] Gabapentin [Neurontin] 300 mg PO TID 10/16/17 [History] Hyoscyamine [Levsin] 0.125 mg PO TID 10/16/17 [History] Insulin Aspart [NovoLOG] 16 - 20 units SQ TID 10/16/17 [History] Insulin Glarg,Human.Rec.Analog [Lantus] 75 units SQ BID 10/16/17 [History] Metoprolol Succinate 15 mg PO DAILY 10/16/17 [History] Potassium Chloride [Klor-Con M20] 20 meq PO DAILY 10/16/17 [History] Sucralfate 1 gm PO QID 10/16/17 [History] Topiramate 50 mg PO 08 10/16/17 [History] Topiramate 100 mg PO BEDTIME 10/16/17 [History] clonazePAM [Clonazepam] 0.125 mg PO BID 10/16/17 [History] Past Medical History HEENT History: Reports: Cataract, Other (See Below) Other HEENT History: bilat cataract Cardiovascular History: Reports: Afib, Heart Failure Other Cardiovascular History: 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 Gastrointestinal History: Reports: GERD Genitourinary History: Reports: UTI, Recurrent LOADING DOCK HELPER History: Reports: Other (See Below) Other LOADING DOCK HELPER History: 1, para1, with a normal delivery Musculoskeletal History: Reports: Fracture, Other (See Below) Other Musculoskeletal History: hx R wrist Neurological History: Reports: Seizure Psychiatric History: Reports: Anxiety, Bipolar Other Psychiatric History: history of substance abuse Endocrine/Metabolic History: Reports: Diabetes, Type II, Obesity/BMI 30+, Other (See Below) Other Endocrine/Metabolic History: diabetic; unknown which type Hematologic History: Reports: Blood Transfusion(s) Immunologic History: Reports: None Oncologic (Cancer) History: Reports: None Dermatologic History: Reports: Decubitus Ulcer, Other (See Below) Other Dermatologic History: dermatitis to lower legs, a slit 3 cm open in butt crack - Infectious Disease History Infectious Disease History: Reports: Chicken Pox Other Infectious Disease History: had tests was cleared of MRSA - Past Surgical History Head Surgeries/Procedures: Reports: None HEENT Surgical History: Reports: Tonsillectomy Female Surgical History: Reports: D&C Social & Family History - Family History Family Medical History: Unobtainable Cardiac: Reports: CAD Respiratory: Reports: Asthma, Sleep Apnea, Other (See Below) Other Respiratory Family Hisory: pt refuses to be tested for sleep apnea but family is pretty sure she has it. Oncologic: Reports: Lung - Caffeine Use Caffeine Use: Reports: Coffee - Living Situation & Occupation Living situation: Reports: Single, with Significant Other Occupation: Unemployed ED ROS GENERAL - Review of Systems Review Of Systems: See Below Constitutional: Reports: Weakness (not new) HEENT: Reports: No Symptoms Respiratory: Reports: No Symptoms Cardiovascular: Reports: No Symptoms Endocrine: Reports: No Symptoms GI/Abdominal: Reports: No Symptoms : Reports: No Symptoms Musculoskeletal: Reports: No Symptoms Skin: Reports: Lumps (left lower leg) Neurological: Reports: No Symptoms Psychiatric: Reports: No Symptoms Hematologic/Lymphatic: Reports: No Symptoms Immunologic: Reports: No Symptoms ED EXAM, SKIN/RASH Exam: See Below Exam Limited By: Physical Impairment General Appearance: Alert, Obese (morbid) Eye Exam: Bilateral Eye: Normal Inspection Ears: Normal External Exam Nose: Normal Inspection Throat/Mouth: Normal Inspection, Normal Gums, Normal Voice, No Airway Compromise Head: Atraumatic, Normocephalic Neck: Normal Inspection Respiratory/Chest: No Respiratory Distress, Lungs Clear, Normal Breath Sounds, No Accessory Muscle Use, Chest Non-Tender Cardiovascular: Normal Peripheral Pulses Peripheral Pulses: 1+: Brachial (L) GI/Abdominal: Normal Bowel Sounds, Soft, Non-Tender, No Organomegaly, No Abnormal Bruit, Pelvis Stable, Other (obese) (Female) Exam: Deferred Rectal (Female) Exam: Deferred Back Exam: Normal Inspection, Full Range of Motion Extremities: Normal Inspection, Normal Range of Motion, Non-Tender, No Pedal Edema, Normal Capillary Refill Neurological: Alert, Oriented, CN II-XII Intact, Normal Cognition, Abnormal Gait (due to body habitus) Psychiatric: Normal Affect, Normal Mood Skin: Warm, Dry, Other (induration of skin left lower leg) Associated features: Warmth, Tenderness, Swelling, Induration (left lower leg) Lymphatic: No Adenopathy Course - Vital Signs Text/Narrative:: 57 y.o.w.f with with multiple medical issues, unable to ambulate due to body habitus, came with her family to the ed due to indurating of her left lower leg. Pt had multiple visits in this ED, pt denied any other acute medical issues. BP 136/95 Pils ox 99% on 4 liter O2 by NC (baseline) Segundo 36.8 Pulse 57 PE: Morbid obese 57 y.o.w.f with multiple medical issues came to the ed with induration of her left lower leg Imaging: US not available today Impression: Mass left lower leg, not fluctuating Tx: None Plan: Pt was d/d's with instructions Last Recorded V/S: Last Vital Signs Temp 36.3 C 11/25/17 19:40 Pulse 57 L 11/25/17 19:40 Resp 20 11/25/17 19:40 BP 136/95 H 11/25/17 19:40 Pulse Ox 99 11/25/17 19:40 Departure - Departure Time of Disposition: 19:55 Disposition: Home, Self-Care 01 Condition: Good Clinical Impression: Mass of left lower extremity - Discharge Information Instructions: Skin Abscess Referrals: Hoda Driver NP [Primary Care Provider] - Forms: ED Department Discharge Additional Instructions: Please follow up at 9 am 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 Please continue your current meds
[2017-11-26 01:11] VITALS: BP 136/95
== END 2017-11-25 20:00 | disposition home or self-care (01) ==
LOC: FB.ED 19:34
DX: R22.42 Localized swelling, mass and lump, left lower limb (principal); I50.9 Heart failure, unspecified; E11.9 Type 2 diabetes mellitus without complications; E66.9 Obesity, unspecified; J45.909 Unspecified asthma, uncomplicated; Z88.1 Allergy status to other antibiotic agents; Z88.5 Allergy status to narcotic agent; Z79.82 Long term (current) use of aspirin; Z79.899 Other long term (current) drug therapy; Z79.01 Long term (current) use of anticoagulants; Z79.4 Long term (current) use of insulin
CPT/HCPCS: 99282

== ENCOUNTER 2018-12-21 11:57 | Emergency (ER) | payer MEDICAID ==
[2018-12-21] MEDS ORDERED: Furosemide 40 MG/4 ML VIAL IVPUSH ONE (13:38)
[2018-12-21 13:58] VITALS: BP 149/30; PULSE 48
--- NOTE | 2018-12-21 14:00 | EDM.PDOC ---
ED HPI GENERAL MEDICAL PROBLEM - General Stated Complaint: LATHARGIC Time Seen by Provider: 12/21/18 12:00 Source of Information: Reports: Patient History Limitations: Reports: No Limitations - History of Present Illness INITIAL COMMENTS - FREE TEXT/NARRATIVE: patient is a very pleasant 58-year-old female who presents with feelings of lethargic and weakness for the past couple of days. She states that she feels like she is swollen everywhere in her arms and legs, and her Lasix is not working. Has otherwise been taking all of her medications as prescribed. She denies chest pain or cough, any fever, chills or sweats. She denies any urinary symptoms such as increased frequency or urgency. She does have a sore spot on her left buttock which has been there for approximately a week, and she thinks is maybe getting a little worse. She is not able to see it herself. she denies fever, chills, sweats, cough, shortness of breath, headache, changes in vision, paresthesias or weakness on one side of her face or body, increased urinary frequency or urgency, chest pain, recent URI, nausea, vomiting or diarrhea, abdominal pain, bleeding from anywhere, abnormal skin lesions other than above. - Related Data Allergies Allergy/AdvReac Type Severity Reaction Status Date / Time cefazolin sodium [From Ancef] Allergy Rash Verified 12/21/18 13:49 codeine phosphate Allergy Hives Verified 12/21/18 13:49 [From Tylenol-Codeine #3] gatifloxacin Allergy Nausea and Verified 12/21/18 13:49 Vomiting levofloxacin [From Levaquin] Allergy Rash Verified 12/21/18 13:49 methylprednisolone Allergy Cannot Verified 12/21/18 13:49 Remember piperacillin sodium Allergy Hives Verified 12/21/18 13:49 [From Zosyn] tazobactam sodium Allergy Hives Verified 12/21/18 13:49 [From Zosyn] Home Meds: Home Meds Omeprazole [Prilosec] 20 mg PO BIDAC 05/26/14 [History] Phenytoin Sodium Extended [Dilantin] 200 mg PO BID #120 capsule 05/29/14 [Rx] Aspirin 325 mg PO DAILY 12/21/14 [History] Docusate Sodium [Colace] 100 mg PO BID PRN 11/01/15 [History] Glucagon,Human Recombinant [Glucagen] 1 mg IM ASDIRECTED PRN 11/01/15 [History] Loperamide HCl [Loperamide] 2 mg PO ASDIRECTED PRN 11/01/15 [History] Multivitamins/Min/Ca/FA/Iron [Thera-M] 1 tab PO DAILY 11/01/15 [History] Nystatin [Nystatin Crm] 1 applic TOP BID 11/01/15 [History] OXcarbazepine [Trileptal] 300 mg PO BID 11/01/15 [History] Triamcinolone Acetonide [Triamcinolone Acetonide 0.025%] 1 applic TOP DAILY [History] Albuterol/Ipratropium [DuoNeb 3.0-0.5 MG/3 ML] 3 ml IH TID PRN 04/04/16 [History ] Pyrithione Zinc [Dandruff Shampoo] 1 applic TOP DAILY PRN 04/04/16 [History] Acetaminophen [Tylenol] 325 - 650 mg PO Q4H PRN 06/01/17 [History] Albuterol [Ventolin HFA] 2 puff INH Q6H PRN 06/01/17 [History] Clotrimazole [Lotrimin AF 1% Crm] 30 gm .XX BEDTIME 06/01/17 [History] Diltiazem HCl [Cartia Xt] 180 mg PO DAILY 06/01/17 [History] EPINEPHrine [Epinephrine] 0.3 mg IJ ASDIRECTED PRN 06/01/17 [History] Furosemide 40 mg PO WITHLUNCH 06/01/17 [History] Furosemide [Lasix] 60 mg PO 08 06/01/17 [History] Levothyroxine 250 mcg PO DAILY 06/01/17 [History] Metaxalone [Skelaxin] 800 mg PO BID PRN 06/01/17 [History] Rosuvastatin [Crestor] 40 mg PO WITHLUNCH 06/01/17 [History] risperiDONE 2 mg PO BID 06/01/17 [History] traZODone HCl [Trazodone HCl] 100 mg PO BEDTIME 06/01/17 [History] FLUoxetine HCl [Prozac] 80 mg PO DAILY 07/01/17 [History] Warfarin Sodium [Jantoven] 7.5 mg PO SUMOTUWETHSA 07/01/17 [History] metFORMIN HCl [Metformin HCl] 1,000 mg PO BID #60 tablet 07/03/17 [Rx] Cholecalciferol (Vitamin D3) [Vitamin D3] 4,000 unit PO DAILY 10/16/17 [History] Digoxin 0.125 mg PO DAILY 10/16/17 [History] Fluticasone/Salmeterol [Advair 250-50] 1 puff PO BID 10/16/17 [History] Gabapentin [Neurontin] 300 mg PO TID 10/16/17 [History] Hyoscyamine [Levsin] 0.125 mg PO TID 10/16/17 [History] Insulin Aspart [NovoLOG] 16 - 20 units SQ TID 10/16/17 [History] Insulin Glarg,Human.Rec.Analog [Lantus] 75 units SQ BID 10/16/17 [History] Metoprolol Succinate 15 mg PO DAILY 10/16/17 [History] Potassium Chloride [Klor-Con M20] 20 meq PO DAILY 10/16/17 [History] Sucralfate 1 gm PO QID 10/16/17 [History] Topiramate 50 mg PO 08 10/16/17 [History] Topiramate 100 mg PO BEDTIME 10/16/17 [History] clonazePAM [Clonazepam] 0.125 mg PO BID 10/16/17 [History] Past Medical History HEENT History: Reports: Cataract, Other (See Below) Other HEENT History: bilat cataract Cardiovascular History: Reports: Afib, Heart Failure Other Cardiovascular History: felt cementer revealed sinus bradycardia, chronic lymphedema, chronic atrial fibrillation on Coumadin but admits in NSR Respiratory History: Reports: Asthma, Other (See Below) Other Respiratory History: On O2 @ 4L/NC @ home. 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 History: Reports: Other (See Below) Other WORKERS COMPENSATION PARALEGAL History: 1, para1, with a normal delivery Musculoskeletal History: Reports: Fracture, Other (See Below) Other Musculoskeletal History: hx R wrist Neurological History: Reports: Seizure Psychiatric History: Reports: Anxiety, Bipolar Other Psychiatric History: history of substance abuse Endocrine/Metabolic History: Reports: Diabetes, Type II, Obesity/BMI 30+, Other (See Below) Other Endocrine/Metabolic History: diabetic; unknown which type Hematologic History: Reports: Blood Transfusion(s) Immunologic History: Reports: None Oncologic (Cancer) History: Reports: None Dermatologic History: Reports: Decubitus Ulcer, Other (See Below) Other Dermatologic History: dermatitis to lower legs, a slit 3 cm open in butt crack - Infectious Disease History Infectious Disease History: Reports: Chicken Pox Other Infectious Disease History: had tests was cleared of MRSA - Past Surgical History Head Surgeries/Procedures: Reports: None HEENT Surgical History: Reports: Tonsillectomy Female Surgical History: Reports: D&C Social & Family History - Family History Family Medical History: Unobtainable Cardiac: Reports: CAD Respiratory: Reports: Asthma, Sleep Apnea, Other (See Below) Other Respiratory Family Hisory: pt refuses to be tested for sleep apnea but family is pretty sure she has it. Oncologic: Reports: Lung - Tobacco Use Smoking Status *Q: Former Smoker - Caffeine Use Caffeine Use: Reports: Coffee - Alcohol Use Alcohol Use History: No - Recreational Drug Use Recreational Drug Use: No - Living Situation & Occupation Living situation: Reports: Single, with Significant Other Occupation: Unemployed ED ROS GENERAL - Review of Systems Review Of Systems: ROS reveals no pertinent complaints other than HPI. ED EXAM, GENERAL - Physical Exam Exam: See Below Free Text/Narrative:: General: alert, oriented to person, place, time, events, very conversant. Tympanic membranes are clear bilaterally with normal light reflex, throat is without erythema, mucous members are moist and there is no tonsillar enlargement or exudates. Pupils are equal and reactive and facial muscles are symmetric. Head is atraumatic, neck is supple. Heart is bradycardic, distant sounds but do not hear murmur. Lungs have diminished sounds throughout with no wheezes or crackles. Abdomen is obese, soft and nontender. Peripheral pulses very difficult to palpate but her extremities are warm and well perfused. She has generalized edema versus severe obesity. Her calves are equal in size and nontender. Her skin exam shows a palpable sore on her left buttock with no surrounding cellulitis, suspect underlying abscess. Her muscle strength is equal side to side in both the upper and lower extremities. Course - Vital Signs Text/Narrative:: arrival EKG appears similar to prior. Labs obtained. Patient is slightly bradycardic, rate 50's, but satting well on 2L oxygen (below baseline), BP 106/ 50. She is alert and oriented, able to carry on conversation. By history, suspect CHF, uncertain baseline bradycardia, on metoprolol and digoxin, meds set up by daughter. Glucose ok here and upon arrival. On coumadin, no bleed by history. very difficult IV access. Multiple attempts by nursing and anesthesia. Decision made to place central line after obtaining patient consent and discuss of risks and benefits. INR 3.0 patient herself states that usually she just gets a central line as peripheral IVs hardly ever can be placed. both the external jugular and subclavian vessels were viewed with ultrasound prior to prep, and visible with abdominal prob. A sterile ultrasound cover and ay other probes are not available. CENTRAL LINE: area was prepped with chlorohexidine and patient was draped. The R subclavian area was infiltrated with 6cc 1% lidocaine. Landmarks carefully palpated. A standard approach was used to attempt to cannulate the vein. I was unsuccessful and after two attempts the local trauma surgeon was called, please see consult note. Patient otherwise tolerated well with minimal complaint of pain. Last Recorded V/S: Last Vital Signs Temp 36.5 C 12/21/18 12:10 Pulse 48 L 12/21/18 12:10 Resp 17 12/21/18 12:10 BP 149/30 H 12/21/18 12:10 Pulse Ox 99 12/21/18 12:10 - Orders/Labs/Meds Orders: Active Orders 24 hr Category Date Time Status EKG Documentation Completion [RC] ASDIRECTED Care 12/21/18 12:05 Active EKG Documentation Completion [RC] ASDIRECTED Care 12/21/18 14:23 Active CXR [Chest 1V Frontal] [CR] Stat Exams 12/21/18 13:37 Taken EKG 12 Lead [EK] Routine Ther 12/21/18 12:05 Ordered EKG 12 Lead [EK] Routine Ther 12/21/18 14:23 Ordered Labs: Laboratory Tests 12/21/18 12/21/18 12/21/18 Range/Units 12:00 12:00 12:00 WBC 8.6 (4.5-12.0) X10-3/uL RBC 4.53 (3.23-5.20) x10(6)uL Hgb 13.8 (11.5-15.5) g/dL Hct 40.4 (30.0-51.3) % MCV 89.1 (80-96) fL MCH 30.4 (27.7-33.6) pg MCHC 34.1 (32.2-35.4) g/dL RDW 12.7 (11.5-15.5) % Plt Count 249 (125-369) X10(3)uL MPV 8.3 (7.4-10.4) fL Neut % (Auto) 65.2 (46-82) % Lymph % (Auto) 24.7 (13-37) % [place] % (Auto) 7.6 (4-12) % Eos % (Auto) 2 (1.0-5.0) % Baso % (Auto) 1 (0-2) % Neut # (Auto) 5.6 (1.6-8.3) # Lymph # (Auto) 2.1 (0.6-5.0) # [place] # (Auto) 0.7 (0.0-1.3) # Eos # (Auto) 0.2 (0.0-0.8) # Baso # (Auto) 0.0 (0.0-0.2) # PT 29.3 H (8.7-11.1) INR 3.05 H (0.89-1.13) POC VBG pH (7.31-7.41) POC VBG pCO2 (41-51) mmHG POC VBG HCO3 (23-28) mmol/L POC VBG Total CO2 (24-29) mmol/L POC VBG Base Excess (-2-3) mmol/L Sodium 135 (135-145) mmol/L Potassium 3.8 (3.5-5.3) mmol/L Chloride 96 L (100-110) mmol/L Carbon Dioxide 30 (21-32) mmol/L BUN 10 (7-18) mg/dL Creatinine 1.0 (0.55-1.02) mg/dL Est Cr Clr Drug Dosing TNP Estimated GFR (MDRD) 57 L (>60) BUN/Creatinine Ratio 10.0 (9-20) Glucose 120 H (80-116) mg/dL Lactic Acid (0.4-2.2) mmol/L Calcium 8.2 L (8.6-10.2) mg/dL Total Bilirubin 0.2 (0.1-1.3) mg/dL AST 24 D (5-25) IU/L ALT 36 D (12-36) U/L Alkaline Phosphatase 142 H (56-112) IU/L Troponin I (<0.017-0.056) ng/mL Total Protein 7.3 (6.0-8.0) g/dL Albumin 3.1 L (3.5-5.2) g/dL Globulin 4.2 g/dL Albumin/Globulin Ratio 0.7 Digoxin (<0.2) ng/mL 12/21/18 12/21/18 12/21/18 Range/Units 12:00 12:00 12:00 WBC (4.5-12.0) X10-3/uL RBC (3.23-5.20) x10(6)uL Hgb (11.5-15.5) g/dL Hct (30.0-51.3) % MCV (80-96) fL MCH (27.7-33.6) pg MCHC (32.2-35.4) g/dL RDW (11.5-15.5) % Plt Count (125-369) X10(3)uL MPV (7.4-10.4) fL Neut % (Auto) (46-82) % Lymph % (Auto) (13-37) % [place] % (Auto) (4-12) % Eos % (Auto) (1.0-5.0) % Baso % (Auto) (0-2) % Neut # (Auto) (1.6-8.3) # Lymph # (Auto) (0.6-5.0) # [place] # (Auto) (0.0-1.3) # Eos # (Auto) (0.0-0.8) # Baso # (Auto) (0.0-0.2) # PT (8.7-11.1) INR (0.89-1.13) POC VBG pH (7.31-7.41) POC VBG pCO2 (41-51) mmHG POC VBG HCO3 (23-28) mmol/L POC VBG Total CO2 (24-29) mmol/L POC VBG Base Excess (-2-3) mmol/L Sodium (135-145) mmol/L Potassium (3.5-5.3) mmol/L Chloride (100-110) mmol/L Carbon Dioxide (21-32) mmol/L BUN (7-18) mg/dL Creatinine (0.55-1.02) mg/dL Est Cr Clr Drug Dosing Estimated GFR (MDRD) (>60) BUN/Creatinine Ratio (9-20) Glucose (80-116) mg/dL Lactic Acid 1.8 (0.4-2.2) mmol/L Calcium (8.6-10.2) mg/dL Total Bilirubin (0.1-1.3) mg/dL AST (5-25) IU/L ALT (12-36) U/L Alkaline Phosphatase (56-112) IU/L Troponin I < 0.017 L (<0.017-0.056) ng/mL Total Protein (6.0-8.0) g/dL Albumin (3.5-5.2) g/dL Globulin g/dL Albumin/Globulin Ratio Digoxin 0.3 L (<0.2) ng/mL 12/21/18 Range/Units 12:07 WBC (4.5-12.0) X10-3/uL RBC (3.23-5.20) x10(6)uL Hgb (11.5-15.5) g/dL Hct (30.0-51.3) % MCV (80-96) fL MCH (27.7-33.6) pg MCHC (32.2-35.4) g/dL RDW (11.5-15.5) % Plt Count (125-369) X10(3)uL MPV (7.4-10.4) fL Neut % (Auto) (46-82) % Lymph % (Auto) (13-37) % [place] % (Auto) (4-12) % Eos % (Auto) (1.0-5.0) % Baso % (Auto) (0-2) % Neut # (Auto) (1.6-8.3) # Lymph # (Auto) (0.6-5.0) # [place] # (Auto) (0.0-1.3) # Eos # (Auto) (0.0-0.8) # Baso # (Auto) (0.0-0.2) # PT (8.7-11.1) INR (0.89-1.13) POC VBG pH 7.41 (7.31-7.41) POC VBG pCO2 47.1 (41-51) mmHG POC VBG HCO3 30.0 H (23-28) mmol/L POC VBG Total CO2 31 H (24-29) mmol/L POC VBG Base Excess 5 H (-2-3) mmol/L Sodium (135-145) mmol/L Potassium (3.5-5.3) mmol/L Chloride (100-110) mmol/L Carbon Dioxide (21-32) mmol/L BUN (7-18) mg/dL Creatinine (0.55-1.02) mg/dL Est Cr Clr Drug Dosing Estimated GFR (MDRD) (>60) BUN/Creatinine Ratio (9-20) Glucose (80-116) mg/dL Lactic Acid (0.4-2.2) mmol/L Calcium (8.6-10.2) mg/dL Total Bilirubin (0.1-1.3) mg/dL AST (5-25) IU/L ALT (12-36) U/L Alkaline Phosphatase (56-112) IU/L Troponin I (<0.017-0.056) ng/mL Total Protein (6.0-8.0) g/dL Albumin (3.5-5.2) g/dL Globulin g/dL Albumin/Globulin Ratio Digoxin (<0.2) ng/mL Meds: Medications Discontinued Medications Generic Name Dose Route Start Last Admin Trade Name Freq PRN Reason Stop Dose Admin Furosemide 80 mg 12/21/18 13:38 12/21/18 14:29 Lasix IVPUSH 12/21/18 13:39 Not Given NOW ONE Heparin Sodium (Porcine) Confirm 12/21/18 12:56 12/21/18 12:55 Heparin Lock Flush 100 Units/Ml Administered 12/21/18 12:57 500 units Dose Administration 500 units .ROUTE .STK-MED ONE - Re-Assessments/Exams Free Text/Narrative Re-Assessment/Exam: 12/21/18 1430 IV access eventually obtained with 24 gauge placed in R foot. labs reviewed -- patient with normal WBCs, normal Hemoglobin and electrolytes, negative troponin. Repeat EKG unchanged from prior. CXR obtained post-procedure shows mild pulmonary edema, no pneumothorax posterior buttock wound- possible early abcess, but patient unable to tolerate being on side very long, so decision made not to drain here given blood pressure and bradycardia, and relative stability over past hour, will hold off lasix here and transport patient to definitive care digoxin level subtherapeutic suspect exacerbation of congestive heart failure, bradycardia (b-leobardo too high? underlying other arrhythmia - although EKG shows sinus) does not appear septic or to have systemic infection at this time urine and blood cultures NOT drawn here, no antibiotics given. decision made to transfer to [place], Dr. Plaza accepting daughter attempted update by phone, will retry after a while Departure - Departure Time of Disposition: 14:47 Disposition: DC/Tfer to Acute Hospital 02 Condition: Serious Clinical Impression: Abscess, Bradycardia, Congestive heart failure (CHF), Diabetes mellitus type 2 in obese, nursing home current use of anticoagulant therapy, Supratherapeutic INR, Morbid obesity with BMI of 50.0-59.9, adult - Discharge Information *PRESCRIPTION DRUG MONITORING PROGRAM REVIEWED*: Not Applicable *COPY OF PRESCRIPTION DRUG MONITORING REPORT IN PATIENT RAFFY: Not Applicable Referrals: Hoda Driver NP [Primary Care Provider] - - My Orders Last 24 Hours: My Active Orders 12/21/18 12:05 EKG Documentation Completion [RC] ASDIRECTED EKG 12 Lead [EK] Routine 12/21/18 13:37 CXR [Chest 1V Frontal] [CR] Stat 12/21/18 14:23 EKG Documentation Completion [RC] ASDIRECTED EKG 12 Lead [EK] Routine - Assessment/Plan Last 24 Hours: My Active Orders 12/21/18 12:05 EKG Documentation Completion [RC] ASDIRECTED EKG 12 Lead [EK] Routine 12/21/18 13:37 CXR [Chest 1V Frontal] [CR] Stat 12/21/18 14:23 EKG Documentation Completion [RC] ASDIRECTED EKG 12 Lead [EK] Routine
--- NOTE | 2018-12-21 14:29 | PCM.SN ---
- Free Text/Narrative Note: ANESTHESIA SERVICES Date: 12/21/2018 Time: 1204 to 1351 Preprocedures Dx: CHF, Super Morbid Obesity and Extremely Poor Venous Access Postprocedure Rx: Assisted with Attempted Central Venous Access and Peripheral Venous Access Obtained Procedure: Assisted with Attempted Central Venous Access and Peripheral Venous Access Obtained Upon arrival to the Trauma 2 bay, I found a female patient weighing 151 + Kg's [ BMI 55] with an INR of 3.05. Her ECG was Bradycardia of 45 with PVC's. It was felt that we needed immediately a central line [Hx of central lines 4-5 yrs ago] . I assisted the ED physician, using sterile technique, with attempts of placement of a right Subclavian Vein Central Line without success. She tolerated this okay. Dr. Dey arrived and advised of the problems. I then assisted him with the placement of the central line. He also had extreme difficulty locating the right Subclavian Vein with multiple attempts. During the last attempt, I tried peripheral venous access on the left wrist without success. The plan was to move to her left side if I could not obtain an IV. I found a vein on the lateral right foot and prepped the area with 2 Alcohol wipes. Using a Jelco 22 Ga. 1 In. ProtectIV Plus X 1 attempt that threaded easily. It flushed without problems. A dressing was applied. She tolerated all of this well. RACQUEL Boateng CRNA
--- NOTE | 2018-12-21 15:14 | CR ---
INDICATION: Shortness of breath, bradycardia, attempted placement of central line on the right. CHEST: An AP portable upright view of the chest, 12/21/18, was compared with and 07/01/17, again revealing the heart to be prominent if not enlarged moderately. No definite evidence of CHF is seen. There is infiltration again noted in the right upper lung field with heavy markings at the lung bases to a lesser extent. Likely these findings are all fibrotic in nature, as they appear unchanged from the previous study. Areas of patchy bronchopneumonia superimposed on fibrosis, however, cannot be excluded in these areas, especially in the right upper lung field. Evidence of exogenous obesity is again noted. A definite pneumothorax was not identified. IMPRESSION: Stable appearance of the chest. No definite acute process but difficult to exclude patchy bronchopneumonia in areas of previously seen heavy markings - possible infiltration. More likely these areas are fibrotic in nature. MTDD
--- NOTE | 2018-12-24 13:34 | PROC ---
DATE OF PROCEDURE: 12/21/2018 This 58-year-old female is seen in the emergency room with exacerbation of CHF. Venous access is required, and attempt had been made to place a right subclavian central venous line without success. I was asked to come and assist in obtaining IV access. The patient is already positioned and she is placed in Trendelenburg. The right subclavian region has been prepped, draped, and additional lidocaine is administered. Using a right subclavian approach, multiple passes are used in an attempt to access the right subclavian vein. Despite doing this from several different locations, the right subclavian vein could not be accessed from using the subclavian approach. With additional assessment, a peripheral IV is able to be inserted by Anesthesia Department into the patient's foot, providing IV access for necessary medication. There was no evidence of any bleeding or shortness of breath during the exam with no sign of any complication from the attempts at subclavian placement of the central line. /[id number] 4 CY/ANNA
== END 2018-12-21 14:52 ==
LOC: FB.ED 11:57
DX: R00.1 Bradycardia, unspecified (principal); R79.1 Abnormal coagulation profile; E66.01 Morbid (severe) obesity due to excess calories; L02.31 Cutaneous abscess of buttock; K21.9 Gastro-esophageal reflux disease without esophagitis; F31.9 Bipolar disorder, unspecified; E11.9 Type 2 diabetes mellitus without complications; I50.9 Heart failure, unspecified; Z88.8 Allergy status to other drugs, medicaments and biological substances; Z88.1 Allergy status to other antibiotic agents; Z79.899 Other long term (current) drug therapy; Z88.5 Allergy status to narcotic agent; Z79.01 Long term (current) use of anticoagulants; Z79.82 Long term (current) use of aspirin; Z79.4 Long term (current) use of insulin; Z68.43 Body mass index [BMI] 50.0-59.9, adult; Z98.890 Other specified postprocedural states; Z87.891 Personal history of nicotine dependence
CPT/HCPCS: 36415; 71045; 80053; 80162; 82803; 83605; 84484; 85025; 85610; 93005; 99285; J1642

== ENCOUNTER 2019-03-01 01:06 | Observation (INO) | payer MEDICAID ==
[2019-03-01] MEDS ORDERED: Sodium Chloride 0.9% 10 ML Syringe FLUSH PRN (01:31)
[2019-03-01] MEDS ORDERED: Sodium Chloride 0.9% 500 ML IV ONE (01:35)
--- NOTE | 2019-03-01 01:44 | EDM.PDOC ---
ED HPI GENERAL MEDICAL PROBLEM - General Chief Complaint: Cardiovascular Problem Time Seen by Provider: 03/01/19 01:39 Source of Information: Reports: Patient History Limitations: Reports: No Limitations - History of Present Illness INITIAL COMMENTS - FREE TEXT/NARRATIVE: Patient with history of multiple medical problems including Afib, CHF, morbid obesity, DM 2 and HTN presents with generalized weakness, "cold sweats," palpitations, chills, dizziness and nausea x 2 days. Patient experienced an episode of chest pain and sob yesterday afternoon. No prior h/o CAD. Patient has been on a "No Carb" diet x 1.5 weeks ago and has lost 14 lbs. Duration: Day(s): (2) Location: Reports: Generalized Severity: Moderate - Related Data Allergies Allergy/AdvReac Type Severity Reaction Status Date / Time cefazolin sodium [From Ancef] Allergy Rash Verified 03/01/19 01:28 codeine phosphate Allergy Hives Verified 03/01/19 01:28 [From Tylenol-Codeine #3] gatifloxacin Allergy Nausea and Verified 03/01/19 01:28 Vomiting levofloxacin [From Levaquin] Allergy Rash Verified 03/01/19 01:28 methylprednisolone Allergy Cannot Verified 03/01/19 01:28 Remember piperacillin sodium Allergy Hives Verified 03/01/19 01:28 [From Zosyn] tazobactam sodium Allergy Hives Verified 03/01/19 01:28 [From Zosyn] Home Meds: Home Meds Omeprazole [Prilosec] 20 mg PO BIDAC 05/26/14 [History] Phenytoin Sodium Extended [Dilantin] 200 mg PO BID #120 capsule 05/29/14 [Rx] Aspirin 325 mg PO DAILY 12/21/14 [History] Loperamide HCl [Loperamide] 2 mg PO ASDIRECTED PRN 11/01/15 [History] Multivitamins/Min/Ca/FA/Iron [Thera-M] 1 tab PO DAILY 11/01/15 [History] Nystatin [Nystatin Crm] 1 applic TOP BID 11/01/15 [History] OXcarbazepine [Trileptal] 300 mg PO BID 11/01/15 [History] Triamcinolone Acetonide [Triamcinolone Acetonide 0.025%] 1 applic TOP DAILY [History] Pyrithione Zinc [Dandruff Shampoo] 1 applic TOP DAILY PRN 04/04/16 [History] Albuterol [Ventolin HFA] 2 puff INH Q6H PRN 06/01/17 [History] Clotrimazole [Lotrimin AF 1% Crm] 30 gm .XX BEDTIME 06/01/17 [History] EPINEPHrine [Epinephrine] 0.3 mg IJ ASDIRECTED PRN 06/01/17 [History] Furosemide [Lasix] 60 mg PO 08 06/01/17 [History] Levothyroxine 250 mcg PO DAILY 06/01/17 [History] Rosuvastatin [Crestor] 40 mg PO WITHLUNCH 06/01/17 [History] risperiDONE 2 mg PO BID 06/01/17 [History] FLUoxetine HCl [Prozac] 80 mg PO DAILY 07/01/17 [History] Warfarin Sodium [Jantoven] 7.5 mg PO SUMOTUWETHSA 07/01/17 [History] Digoxin 0.125 mg PO DAILY 10/16/17 [History] Fluticasone/Salmeterol [Advair 250-50] 1 puff PO BID 10/16/17 [History] Hyoscyamine [Levsin] 0.125 mg PO TID 10/16/17 [History] Insulin Aspart [NovoLOG] 16 - 20 units SQ TID 10/16/17 [History] Insulin Glarg,Human.Rec.Analog [Lantus] 75 units SQ BID 10/16/17 [History] Metoprolol Succinate 15 mg PO DAILY 10/16/17 [History] Potassium Chloride [Klor-Con M20] 20 meq PO DAILY 10/16/17 [History] Sucralfate 1 gm PO QID 10/16/17 [History] Topiramate 50 mg PO 08 10/16/17 [History] Topiramate 100 mg PO BEDTIME 10/16/17 [History] clonazePAM [Clonazepam] 0.125 mg PO BID 10/16/17 [History] Acetaminophen [Tylenol Extra Strength] 1,000 mg Q6H PRN 03/01/19 [History] Magnesium 250 mg PO DAILY 03/01/19 [History] Methocarbamol [Robaxin] 500 mg PO TID PRN 03/01/19 [History] Warfarin Sodium [Jantoven] 5 mg MO 03/01/19 [History] Past Medical History HEENT History: Reports: Cataract, Other (See Below) Other HEENT History: bilat cataract Cardiovascular History: Reports: Afib, Heart Failure Other Cardiovascular History: 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: Other (See Below) Other PAYLOADER OPERATOR History: 1, para1, with a normal delivery Musculoskeletal History: Reports: Fracture, Other (See Below) Other Musculoskeletal History: hx R wrist Neurological History: Reports: Seizure Psychiatric History: Reports: Anxiety, Bipolar Other Psychiatric History: history of substance abuse Endocrine/Metabolic History: Reports: Diabetes, Type II, Obesity/BMI 30+, Other (See Below) Other Endocrine/Metabolic History: diabetic; unknown which type Hematologic History: Reports: Blood Transfusion(s) Immunologic History: Reports: None Oncologic (Cancer) History: Reports: None Dermatologic History: Reports: Decubitus Ulcer, Other (See Below) Other Dermatologic History: dermatitis to lower legs, a slit 3 cm open in butt crack - Infectious Disease History Infectious Disease History: Reports: Chicken Pox Other Infectious Disease History: had tests was cleared of MRSA - Past Surgical History Head Surgeries/Procedures: Reports: None HEENT Surgical History: Reports: Tonsillectomy Female Surgical History: Reports: D&C Social & Family History - Family History Family Medical History: Unobtainable Cardiac: Reports: CAD Respiratory: Reports: Asthma, Sleep Apnea, Other (See Below) Other Respiratory Family Hisory: pt refuses to be tested for sleep apnea but family is pretty sure she has it. Oncologic: Reports: Lung - Tobacco Use Tobacco Use Within Last Twelve Months: No - Caffeine Use Caffeine Use: Reports: Coffee - Alcohol Use Alcohol Use History: No - Recreational Drug Use Recreational Drug Use: No - Living Situation & Occupation Living situation: Reports: Single, with Significant Other Occupation: Unemployed ED ROS GENERAL - Review of Systems Review Of Systems: Comprehensive ROS is negative, except as noted in HPI. ED EXAM, GENERAL - Physical Exam Exam: See Below Exam Limited By: No Limitations General Appearance: Alert, WD/WN, No Apparent Distress Nose: Normal Inspection Throat/Mouth: No Airway Compromise Head: Atraumatic, Normocephalic Neck: Supple Respiratory/Chest: No Respiratory Distress, Lungs Clear, Normal Breath Sounds Cardiovascular: Regular Rate, Rhythm, No Gallop, No Murmur GI/Abdominal: No Distention Back Exam: Full Range of Motion Extremities: Normal Range of Motion Neurological: Alert, Normal Cognition, No Motor/Sensory Deficits Psychiatric: Normal Affect, Normal Mood Skin Exam: Warm, Dry EKG INTERPRETATION EKG Date: 03/01/19 Time: Rhythm: Other (sinus tachycardia) Rate (Beats/Min): 116 QRS: Other (RBBB and LPFB) Comparison: Other: (No significant change from 12/21/18 except rate) Course - Vital Signs Last Recorded V/S: Last Vital Signs Temp 36.3 C 03/01/19 01:06 Pulse 104 H 03/01/19 01:06 Resp 20 03/01/19 01:06 BP 127/69 03/01/19 01:06 Pulse Ox 96 03/01/19 01:06 - Orders/Labs/Meds Orders: Active Orders 24 hr Category Date Time Status Admission Status [Patient Status] [ADT] Routine ADT 03/01/19 02:40 Active EKG Documentation Completion [RC] ASDIRECTED Care 03/01/19 01:30 Active Oxygen Therapy Adult [Oxygen Therapy, ED] [RC] Care 03/01/19 01:06 Active ASDIRECTED Chest 1V Frontal [CR] Stat Exams 03/01/19 01:30 Taken CULTURE BLOOD [BC] Urgent Lab 03/01/19 02:15 Received CULTURE BLOOD [BC] Urgent Lab 03/01/19 02:22 Received THYROXINE (T4) FREE, DIRECT, S Stat Lab 03/01/19 01:20 Received UA W/MICROSCOPIC [URIN] Stat Lab 03/01/19 01:30 Ordered Sodium Chloride 0.9% [Saline Flush] Med 03/01/19 01:31 Active 10 ml FLUSH ASDIRECTED PRN Blood Culture x2 Reflex Set [OM.PC] Urgent Oth 03/01/19 01:30 Ordered Saline Lock Insert [OM.PC] Routine Oth 03/01/19 01:31 Ordered EKG 12 Lead [EK] Stat Ther 03/01/19 01:30 Ordered Medication Orders Sodium Chloride (Saline Flush) 10 ml FLUSH ASDIRECTED PRN PRN Reason: Keep Vein Open Labs: Laboratory Tests 03/01/19 03/01/19 03/01/19 Range/Units 01:20 01:20 01:20 WBC 9.8 (4.5-12.0) X10-3/uL RBC 4.95 (3.23-5.20) x10(6)uL Hgb 15.1 (11.5-15.5) g/dL Hct 44.5 (30.0-51.3) % MCV 89.9 (80-96) fL MCH 30.6 (27.7-33.6) pg MCHC 34.0 (32.2-35.4) g/dL RDW 13.4 (11.5-15.5) % Plt Count 283 (125-369) X10(3)uL MPV 8.7 (7.4-10.4) fL Neut % (Auto) 54.8 (46-82) % Lymph % (Auto) 29.7 (13-37) % [place] % (Auto) 13.1 H (4-12) % Eos % (Auto) 2 (1.0-5.0) % Baso % (Auto) 1 (0-2) % Neut # (Auto) 5.3 (1.6-8.3) # Lymph # (Auto) 2.9 (0.6-5.0) # [place] # (Auto) 1.3 (0.0-1.3) # Eos # (Auto) 0.2 (0.0-0.8) # Baso # (Auto) 0.1 (0.0-0.2) # PT 21.2 H (8.7-11.1) INR 2.21 H (0.89-1.13) APTT (24.4-33.2) SECONDS D-Dimer, Quantitative 0.19 (0.0-0.59) mg/LFEU POC VBG pH POC VBG pCO2 POC VBG HCO3 POC VBG Total CO2 POC VBG Base Excess Sodium 128 L (135-145) mmol/L Potassium 3.3 L (3.5-5.3) mmol/L Chloride 88 L* D (100-110) mmol/L Carbon Dioxide 36 H (21-32) mmol/L BUN 18 (7-18) mg/dL Creatinine 1.2 H (0.55-1.02) mg/dL Est Cr Clr Drug Dosing 44.66 mL/min Estimated GFR (MDRD) 46 L (>60) BUN/Creatinine Ratio 15.0 (9-20) Glucose 146 H (80-116) mg/dL Lactic Acid (0.4-2.2) mmol/L Calcium 9.0 (8.6-10.2) mg/dL Magnesium (1.8-2.5) mg/dL Total Bilirubin 0.3 (0.1-1.3) mg/dL AST 24 (5-25) IU/L ALT 36 (12-36) U/L Alkaline Phosphatase 126 H (56-112) IU/L Troponin I (<0.017-0.056) ng/mL NT-Pro-B Natriuret Pep (<=125) pg/mL Total Protein 7.5 (6.0-8.0) g/dL Albumin 3.3 L (3.5-5.2) g/dL Globulin 4.2 g/dL Albumin/Globulin Ratio 0.8 TSH, Ultra Sensitive (0.36-3.74) IU/mL Digoxin (<0.2) ng/mL Phenytoin (<0.4) ug/mL 03/01/19 03/01/19 03/01/19 Range/Units 01:20 01:20 01:20 WBC (4.5-12.0) X10-3/uL RBC (3.23-5.20) x10(6)uL Hgb (11.5-15.5) g/dL Hct (30.0-51.3) % MCV (80-96) fL MCH (27.7-33.6) pg MCHC (32.2-35.4) g/dL RDW (11.5-15.5) % Plt Count (125-369) X10(3)uL MPV (7.4-10.4) fL Neut % (Auto) (46-82) % Lymph % (Auto) (13-37) % [place] % (Auto) (4-12) % Eos % (Auto) (1.0-5.0) % Baso % (Auto) (0-2) % Neut # (Auto) (1.6-8.3) # Lymph # (Auto) (0.6-5.0) # [place] # (Auto) (0.0-1.3) # Eos # (Auto) (0.0-0.8) # Baso # (Auto) (0.0-0.2) # PT (8.7-11.1) INR (0.89-1.13) APTT 35.6 H (24.4-33.2) SECONDS D-Dimer, Quantitative (0.0-0.59) mg/LFEU POC VBG pH POC VBG pCO2 POC VBG HCO3 POC VBG Total CO2 POC VBG Base Excess Sodium (135-145) mmol/L Potassium (3.5-5.3) mmol/L Chloride (100-110) mmol/L Carbon Dioxide (21-32) mmol/L BUN (7-18) mg/dL Creatinine (0.55-1.02) mg/dL Est Cr Clr Drug Dosing mL/min Estimated GFR (MDRD) (>60) BUN/Creatinine Ratio (9-20) Glucose (80-116) mg/dL Lactic Acid 2.1 (0.4-2.2) mmol/L Calcium (8.6-10.2) mg/dL Magnesium (1.8-2.5) mg/dL Total Bilirubin (0.1-1.3) mg/dL AST (5-25) IU/L ALT (12-36) U/L Alkaline Phosphatase (56-112) IU/L Troponin I < 0.017 L (<0.017-0.056) ng/mL NT-Pro-B Natriuret Pep 2291 H* (<=125) pg/mL Total Protein (6.0-8.0) g/dL Albumin (3.5-5.2) g/dL Globulin g/dL Albumin/Globulin Ratio TSH, Ultra Sensitive (0.36-3.74) IU/mL Digoxin < 0.2 L (<0.2) ng/mL Phenytoin (<0.4) ug/mL 03/01/19 03/01/19 03/01/19 Range/Units 01:20 01:20 01:20 WBC (4.5-12.0) X10-3/uL RBC (3.23-5.20) x10(6)uL Hgb (11.5-15.5) g/dL Hct (30.0-51.3) % MCV (80-96) fL MCH (27.7-33.6) pg MCHC (32.2-35.4) g/dL RDW (11.5-15.5) % Plt Count (125-369) X10(3)uL MPV (7.4-10.4) fL Neut % (Auto) (46-82) % Lymph % (Auto) (13-37) % [place] % (Auto) (4-12) % Eos % (Auto) (1.0-5.0) % Baso % (Auto) (0-2) % Neut # (Auto) (1.6-8.3) # Lymph # (Auto) (0.6-5.0) # [place] # (Auto) (0.0-1.3) # Eos # (Auto) (0.0-0.8) # Baso # (Auto) (0.0-0.2) # PT (8.7-11.1) INR (0.89-1.13) APTT (24.4-33.2) SECONDS D-Dimer, Quantitative (0.0-0.59) mg/LFEU POC VBG pH POC VBG pCO2 POC VBG HCO3 POC VBG Total CO2 POC VBG Base Excess Sodium (135-145) mmol/L Potassium (3.5-5.3) mmol/L Chloride (100-110) mmol/L Carbon Dioxide (21-32) mmol/L BUN (7-18) mg/dL Creatinine (0.55-1.02) mg/dL Est Cr Clr Drug Dosing mL/min Estimated GFR (MDRD) (>60) BUN/Creatinine Ratio (9-20) Glucose (80-116) mg/dL Lactic Acid (0.4-2.2) mmol/L Calcium (8.6-10.2) mg/dL Magnesium 1.8 (1.8-2.5) mg/dL Total Bilirubin (0.1-1.3) mg/dL AST (5-25) IU/L ALT (12-36) U/L Alkaline Phosphatase (56-112) IU/L Troponin I (<0.017-0.056) ng/mL NT-Pro-B Natriuret Pep (<=125) pg/mL Total Protein (6.0-8.0) g/dL Albumin (3.5-5.2) g/dL Globulin g/dL Albumin/Globulin Ratio TSH, Ultra Sensitive 9.89 H* (0.36-3.74) IU/mL Digoxin (<0.2) ng/mL Phenytoin 2.9 L (<0.4) ug/mL 03/01/19 03/01/19 Range/Units 02:22 03:31 WBC (4.5-12.0) X10-3/uL RBC (3.23-5.20) x10(6)uL Hgb (11.5-15.5) g/dL Hct (30.0-51.3) % MCV (80-96) fL MCH (27.7-33.6) pg MCHC (32.2-35.4) g/dL RDW (11.5-15.5) % Plt Count (125-369) X10(3)uL MPV (7.4-10.4) fL Neut % (Auto) (46-82) % Lymph % (Auto) (13-37) % [place] % (Auto) (4-12) % Eos % (Auto) (1.0-5.0) % Baso % (Auto) (0-2) % Neut # (Auto) (1.6-8.3) # Lymph # (Auto) (0.6-5.0) # [place] # (Auto) (0.0-1.3) # Eos # (Auto) (0.0-0.8) # Baso # (Auto) (0.0-0.2) # PT (8.7-11.1) INR (0.89-1.13) APTT (24.4-33.2) SECONDS D-Dimer, Quantitative (0.0-0.59) mg/LFEU POC VBG pH Cancelled 7.45 H POC VBG pCO2 Cancelled 44.3 POC VBG HCO3 Cancelled 30.6 H POC VBG Total CO2 Cancelled 32 H POC VBG Base Excess Cancelled 7 H Sodium (135-145) mmol/L Potassium (3.5-5.3) mmol/L Chloride (100-110) mmol/L Carbon Dioxide (21-32) mmol/L BUN (7-18) mg/dL Creatinine (0.55-1.02) mg/dL Est Cr Clr Drug Dosing mL/min Estimated GFR (MDRD) (>60) BUN/Creatinine Ratio (9-20) Glucose (80-116) mg/dL Lactic Acid (0.4-2.2) mmol/L Calcium (8.6-10.2) mg/dL Magnesium (1.8-2.5) mg/dL Total Bilirubin (0.1-1.3) mg/dL AST (5-25) IU/L ALT (12-36) U/L Alkaline Phosphatase (56-112) IU/L Troponin I (<0.017-0.056) ng/mL NT-Pro-B Natriuret Pep (<=125) pg/mL Total Protein (6.0-8.0) g/dL Albumin (3.5-5.2) g/dL Globulin g/dL Albumin/Globulin Ratio TSH, Ultra Sensitive (0.36-3.74) IU/mL Digoxin (<0.2) ng/mL Phenytoin (<0.4) ug/mL Meds: Medications Generic Name Dose Route Start Last Admin Trade Name Freq PRN Reason Stop Dose Admin Sodium Chloride 10 ml 03/01/19 01:31 Saline Flush FLUSH ASDIRECTED PRN Keep Vein Open Discontinued Medications Generic Name Dose Route Start Last Admin Trade Name Freq PRN Reason Stop Dose Admin Sodium Chloride 500 mls @ 500 mls/hr 03/01/19 01:35 03/01/19 02:49 Normal Saline IV 03/01/19 02:34 Not Given .BOLUS ONE - Radiology Interpretation Free Text/Narrative:: CXR: No acute process. (ED provider interpretation) Departure - Departure Time of Disposition: 02:50 Disposition: Refer to Observation Condition: Fair Clinical Impression: Hypochloremic alkalosis, Hyponatremia, Dehydration Referrals: Hoda Driver NP [Primary Care Provider] - - My Orders Last 24 Hours: My Active Orders 03/01/19 01:06 Oxygen Therapy Adult [Oxygen Therapy, ED] [RC] ASDIRECTED 03/01/19 01:20 THYROXINE (T4) FREE, DIRECT, S Stat 03/01/19 01:30 EKG Documentation Completion [RC] ASDIRECTED Chest 1V Frontal [CR] Stat UA W/MICROSCOPIC [URIN] Stat Blood Culture x2 Reflex Set [OM.PC] Urgent EKG 12 Lead [EK] Stat 03/01/19 01:31 Sodium Chloride 0.9% [Saline Flush] 10 ml FLUSH ASDIRECTED PRN Saline Lock Insert [OM.PC] Routine 03/01/19 02:15 CULTURE BLOOD [BC] Urgent 03/01/19 02:22 CULTURE BLOOD [BC] Urgent 03/01/19 02:40 Admission Status [Patient Status] [ADT] Routine - Assessment/Plan Last 24 Hours: My Active Orders 03/01/19 01:06 Oxygen Therapy Adult [Oxygen Therapy, ED] [RC] ASDIRECTED 03/01/19 01:20 THYROXINE (T4) FREE, DIRECT, S Stat 03/01/19 01:30 EKG Documentation Completion [RC] ASDIRECTED Chest 1V Frontal [CR] Stat UA W/MICROSCOPIC [URIN] Stat Blood Culture x2 Reflex Set [OM.PC] Urgent EKG 12 Lead [EK] Stat 03/01/19 01:31 Sodium Chloride 0.9% [Saline Flush] 10 ml FLUSH ASDIRECTED PRN Saline Lock Insert [OM.PC] Routine 03/01/19 02:15 CULTURE BLOOD [BC] Urgent 03/01/19 02:22 CULTURE BLOOD [BC] Urgent 03/01/19 02:40 Admission Status [Patient Status] [ADT] Routine
[2019-03-01] MEDS: Sodium Chloride 0.9% 500 ML IV ONE (02:35)
[2019-03-01] MEDS ORDERED: Sodium Chloride 0.9% 1,000 ML IV SCH (03:00)
[2019-03-01] MEDS ORDERED: Albuterol 8 GM Inhaler INH PRN (03:01)
[2019-03-01] MEDS ORDERED: Loperamide 2 MG Cap PO PRN (03:01)
[2019-03-01] MEDS ORDERED: Acetaminophen 500 MG Tab PO PRN (03:01)
[2019-03-01] MEDS ORDERED: Methocarbamol 500 MG Tab PO PRN (03:01)
[2019-03-01] MEDS ORDERED: Hyoscyamine 0.125 MG Tab.SL PO PRN (03:01)
[2019-03-01] MEDS ORDERED: Albuterol 0.083% 2.5 MG/3 ML Neb Soln NEB PRN (03:19)
[2019-03-01] MEDS: Pantoprazole 40 MG Tab.CR PO SCH (06:34)
[2019-03-01] MEDS: Levothyroxine 25 MCG Tab PO SCH (06:34)
[2019-03-01] MEDS ORDERED: Potassium Chloride 20 MEQ Tab.ER ONE (06:41)
[2019-03-01] MEDS: Potassium Chloride 20 MEQ Tab.ER PO SCH ×3 (06:43→20:53)
[2019-03-01] MEDS ORDERED: Topiramate 50 MG Tab PO SCH (09:00)
[2019-03-01] MEDS ORDERED: Formoterol/Mometasone 200-5 MCG 8.8 GM Inhaler IH SCH (09:00)
[2019-03-01] MEDS ORDERED: ClonazePAM 1 MG Tab PO SCH (09:00)
[2019-03-01] MEDS ORDERED: Insulin Glargine,Human Rec. Analog 100 Units/ML 3 ML Pen SUBCUT SCH (09:00)
[2019-03-01] MEDS ORDERED: risperiDONE 1 MG Tab PO SCH (09:00)
[2019-03-01] MEDS ORDERED: Nystatin Crm 15 GM Tube TOP SCH (09:00)
[2019-03-01] MEDS ORDERED: Triamcinolone Acetonide 0.025% Crm 15 GM Tube TOP SCH (09:00)
[2019-03-01] MEDS ORDERED: Sucralfate 1 GM Tab PO SCH (09:00)
[2019-03-01] MEDS ORDERED: Ketorolac 30 MG/ML SDV IVPUSH PRN (09:32)
--- NOTE | 2019-03-01 09:54 | PCM.HP.2 ---
H&P History of Present Illness - General Date of Service: 03/01/19 Admit Problem/Dx: Admission Diagnosis/Problem Admission Diagnosis/Problem Hyponatremia Source of Information: Patient History Limitations: Reports: No Limitations - History of Present Illness Initial Comments - Free Text/Narative: Marisol is a 58-year-old female who came in because of not feeling well. Her symptoms of 3 days include generalized malaise, vomiting, and now right upper quadrant abdominal pain. She's currently on diet to lose weight, and has lost 13 pounds in the last few weeks on protein diet. She has a history of chronic lymphedema and has abused diuretics in the past. Recently metolazone was added as needed. She has no chest pain or shortness of breath. She has chronic CHF, it fibrillation, obesity, and polypharmacy. - Related Data Allergies/Adverse Reactions: Allergies Allergy/AdvReac Type Severity Reaction Status Date / Time cefazolin sodium [From Ancef] Allergy Rash Verified 03/01/19 01:28 codeine phosphate Allergy Hives Verified 03/01/19 01:28 [From Tylenol-Codeine #3] gatifloxacin Allergy Nausea and Verified 03/01/19 01:28 Vomiting levofloxacin [From Levaquin] Allergy Rash Verified 03/01/19 01:28 methylprednisolone Allergy Cannot Verified 03/01/19 01:28 Remember piperacillin sodium Allergy Hives Verified 03/01/19 01:28 [From Zosyn] tazobactam sodium Allergy Hives Verified 03/01/19 01:28 [From Zosyn] Home Medications: Home Meds Phenytoin Sodium Extended [Dilantin] 200 mg PO BID #120 capsule 05/29/14 [Rx] Aspirin 325 mg PO DAILY 12/21/14 [History] Loperamide HCl [Loperamide] 2 mg PO ASDIRECTED PRN 11/01/15 [History] Multivitamins/Min/Ca/FA/Iron [Thera-M] 1 tab PO DAILY 11/01/15 [History] OXcarbazepine [Trileptal] 300 mg PO BID 11/01/15 [History] Pyrithione Zinc [Dandruff Shampoo] 1 applic TOP DAILY PRN 04/04/16 [History] Albuterol [Ventolin HFA] 2 puff INH Q6H PRN 06/01/17 [History] EPINEPHrine [Epinephrine] 0.3 mg IJ ASDIRECTED PRN 06/01/17 [History] Furosemide [Lasix] 40 mg PO BID 06/01/17 [History] Levothyroxine 225 mcg PO Q48H 06/01/17 [History] Rosuvastatin [Crestor] 40 mg PO WITHLUNCH 06/01/17 [History] risperiDONE 2 mg PO BID 06/01/17 [History] FLUoxetine HCl [Prozac] 80 mg PO DAILY 07/01/17 [History] Warfarin Sodium [Jantoven] 7.5 mg PO SUTUWETHFRSA 07/01/17 [History] Digoxin 0.125 mg PO Q48H 10/16/17 [History] Hyoscyamine [Levsin] 0.125 mg PO DAILY PRN 10/16/17 [History] Insulin Aspart [NovoLOG] 0 - 10 units SQ BIDMEALS 10/16/17 [History] Insulin Glarg,Human.Rec.Analog [Lantus] 6 units SQ BID 10/16/17 [History] Metoprolol Succinate 100 mg PO DAILY 10/16/17 [History] Potassium Chloride [Klor-Con M20] 20 meq PO DAILY 10/16/17 [History] Sucralfate 1 gm PO QIDACANDBED 10/16/17 [History] Topiramate 100 mg PO BID 10/16/17 [History] Acetaminophen [Tylenol Extra Strength] 1,000 mg Q6H PRN 03/01/19 [History] ClonazePAM [KlonoPIN] 0.5 mg PO BID 03/01/19 [History] Magnesium 250 mg PO DAILY 03/01/19 [History] Methocarbamol [Robaxin] 500 mg PO TID PRN 03/01/19 [History] Warfarin Sodium [Jantoven] 5 mg MO 03/01/19 [History] Past Medical History HEENT History: Reports: Cataract, Other (See Below) Other HEENT History: bilat cataract Cardiovascular History: Reports: Afib, Heart Failure Other Cardiovascular History: hall monitor revealed sinus bradycardia, chronic lymphedema, chronic atrial fibrillation on Coumadin but admits in NSR Respiratory History: Reports: Asthma, Other (See Below) Other Respiratory History: On O2 @ 4L/NC @ home. 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 (See Below) Other OB/BYN History: 1, para1, with a normal delivery Musculoskeletal History: Reports: Fracture, Other (See Below) Other Musculoskeletal History: hx R wrist Neurological History: Reports: Seizure Psychiatric History: Reports: Anxiety, Bipolar Other Psychiatric History: history of substance abuse Endocrine/Metabolic History: Reports: Diabetes, Type II, Obesity/BMI 30+, Other (See Below) Other Endocrine/Metabolic History: diabetic; unknown which type Hematologic History: Reports: Blood Transfusion(s) Immunologic History: Reports: None Oncologic (Cancer) History: Reports: None Dermatologic History: Reports: Decubitus Ulcer, Other (See Below) Other Dermatologic History: dermatitis to lower legs, a slit 3 cm open in butt crack - Infectious Disease History Infectious Disease History: Reports: Chicken Pox Other Infectious Disease History: had tests was cleared of MRSA - Past Surgical History Head Surgeries/Procedures: Reports: None HEENT Surgical History: Reports: Tonsillectomy Respiratory Surgical History: Reports: None GI Surgical History: Reports: Colonoscopy Female Surgical History: Reports: D&C Neurological Surgical History: Reports: None Social & Family History - Family History Family Medical History: Unobtainable Cardiac: Reports: CAD Respiratory: Reports: Asthma, Sleep Apnea, Other (See Below) Other Respiratory Family Hisory: pt refuses to be tested for sleep apnea but family is pretty sure she has it. Oncologic: Reports: Lung - Tobacco Use Smoking Status *Q: Former Smoker Years of Tobacco use: 7 Packs/Tins Daily: 0.5 Used Tobacco, but Quit: Yes Month/Year Tobacco Last Used: Second Hand Smoke Exposure: No - Caffeine Use Caffeine Use: Reports: Coffee Other Caffeine Use: 3 cups a day - Recreational Drug Use Recreational Drug Use: No Recreational Drug Type: Reports: Marijuana/Hashish Recreational Drug Use Frequency: Not Used In Over 6 Months - Living Situation & Occupation Living situation: Reports: Single, with Significant Other Occupation: Unemployed H&P Review of Systems - Review of Systems: Review Of Systems: Comprehensive ROS is negative, except as noted in HPI. Exam - Exam Exam: See Below - Vital Signs Vital Signs: Last Vital Signs Temp 97.6 F 03/01/19 03:20 Pulse 111 H 03/01/19 03:20 Resp 19 03/01/19 03:20 BP 143/80 H 03/01/19 03:20 Pulse Ox 98 03/01/19 03:20 Weight: 145.195 kg - Exam Quality Assessment: Supplemental Oxygen General: Alert, Oriented HEENT: PERRLA Neck: Supple Lungs: Clear to Auscultation Cardiovascular: Irregular Rhythm, Tachycardia GI/Abdominal Exam: Normal Bowel Sounds, Distended, Guarding, Tender (RUQ) (Female) Exam: Deferred Back Exam: Other (Decubitous ulcer,stage 1) Extremities: Pedal Edema (Non pitting). No: Benjamin's Sign, Limited Range of Motion Skin: Warm Neurological: Cranial Nerves Intact Neuro Extensive - Mental Status: Alert, Oriented x3 Psychiatric: Alert, Depressed - Patient Data Lab Results Last 24 hrs: Laboratory Results - last 24 hr 03/01/19 03/01/19 03/01/19 Range/Units 01:20 01:20 01:20 WBC 9.8 (4.5-12.0) X10-3/uL RBC 4.95 (3.23-5.20) x10(6)uL Hgb 15.1 (11.5-15.5) g/dL Hct 44.5 (30.0-51.3) % MCV 89.9 (80-96) fL MCH 30.6 (27.7-33.6) pg MCHC 34.0 (32.2-35.4) g/dL RDW 13.4 (11.5-15.5) % Plt Count 283 (125-369) X10(3)uL MPV 8.7 (7.4-10.4) fL Neut % (Auto) 54.8 (46-82) % Lymph % (Auto) 29.7 (13-37) % [place] % (Auto) 13.1 H (4-12) % Eos % (Auto) 2 (1.0-5.0) % Baso % (Auto) 1 (0-2) % Neut # (Auto) 5.3 (1.6-8.3) # Lymph # (Auto) 2.9 (0.6-5.0) # [place] # (Auto) 1.3 (0.0-1.3) # Eos # (Auto) 0.2 (0.0-0.8) # Baso # (Auto) 0.1 (0.0-0.2) # PT 21.2 H (8.7-11.1) INR 2.21 H (0.89-1.13) APTT (24.4-33.2) SECONDS D-Dimer, Quantitative 0.19 (0.0-0.59) mg/LFEU POC VBG pH POC VBG pCO2 POC VBG HCO3 POC VBG Total CO2 POC VBG Base Excess Sodium 128 L (135-145) mmol/L Potassium 3.3 L (3.5-5.3) mmol/L Chloride 88 L* D (100-110) mmol/L Carbon Dioxide 36 H (21-32) mmol/L BUN 18 (7-18) mg/dL Creatinine 1.2 H (0.55-1.02) mg/dL Est Cr Clr Drug Dosing 44.66 mL/min Estimated GFR (MDRD) 46 L (>60) BUN/Creatinine Ratio 15.0 (9-20) Glucose 146 H (80-116) mg/dL Lactic Acid (0.4-2.2) mmol/L Calcium 9.0 (8.6-10.2) mg/dL Magnesium (1.8-2.5) mg/dL Total Bilirubin 0.3 (0.1-1.3) mg/dL AST 24 (5-25) IU/L ALT 36 (12-36) U/L Alkaline Phosphatase 126 H (56-112) IU/L Troponin I (<0.017-0.056) ng/mL NT-Pro-B Natriuret Pep (<=125) pg/mL Total Protein 7.5 (6.0-8.0) g/dL Albumin 3.3 L (3.5-5.2) g/dL Globulin 4.2 g/dL Albumin/Globulin Ratio 0.8 TSH, Ultra Sensitive (0.36-3.74) IU/mL Urine Color (YELLOW) Urine Appearance (CLEAR) Urine pH (5.0-6.5) Ur Specific [place] (1.010-1.025) Urine Protein (NEGATIVE) mg/dL Urine Glucose (UA) (NORMAL) mg/dL Urine Ketones (NEGATIVE) mg/dL Urine Occult Blood (NEGATIVE) Urine Nitrite (NEGATIVE) Urine Bilirubin (NEGATIVE) Urine Urobilinogen (NEGATIVE) mg/dL Ur Leukocyte Esterase (NEGATIVE) Urine RBC (0-5) Urine WBC (0-5) Ur Squamous Epith Cells (NS,R,O) Urine Bacteria (NS) Digoxin (<0.2) ng/mL Phenytoin (<0.4) ug/mL 03/01/19 03/01/19 03/01/19 Range/Units 01:20 01:20 01:20 WBC (4.5-12.0) X10-3/uL RBC (3.23-5.20) x10(6)uL Hgb (11.5-15.5) g/dL Hct (30.0-51.3) % MCV (80-96) fL MCH (27.7-33.6) pg MCHC (32.2-35.4) g/dL RDW (11.5-15.5) % Plt Count (125-369) X10(3)uL MPV (7.4-10.4) fL Neut % (Auto) (46-82) % Lymph % (Auto) (13-37) % [place] % (Auto) (4-12) % Eos % (Auto) (1.0-5.0) % Baso % (Auto) (0-2) % Neut # (Auto) (1.6-8.3) # Lymph # (Auto) (0.6-5.0) # [place] # (Auto) (0.0-1.3) # Eos # (Auto) (0.0-0.8) # Baso # (Auto) (0.0-0.2) # PT (8.7-11.1) INR (0.89-1.13) APTT 35.6 H (24.4-33.2) SECONDS D-Dimer, Quantitative (0.0-0.59) mg/LFEU POC VBG pH POC VBG pCO2 POC VBG HCO3 POC VBG Total CO2 POC VBG Base Excess Sodium (135-145) mmol/L Potassium (3.5-5.3) mmol/L Chloride (100-110) mmol/L Carbon Dioxide (21-32) mmol/L BUN (7-18) mg/dL Creatinine (0.55-1.02) mg/dL Est Cr Clr Drug Dosing mL/min Estimated GFR (MDRD) (>60) BUN/Creatinine Ratio (9-20) Glucose (80-116) mg/dL Lactic Acid 2.1 (0.4-2.2) mmol/L Calcium (8.6-10.2) mg/dL Magnesium (1.8-2.5) mg/dL Total Bilirubin (0.1-1.3) mg/dL AST (5-25) IU/L ALT (12-36) U/L Alkaline Phosphatase (56-112) IU/L Troponin I < 0.017 L (<0.017-0.056) ng/mL NT-Pro-B Natriuret Pep 2291 H* (<=125) pg/mL Total Protein (6.0-8.0) g/dL Albumin (3.5-5.2) g/dL Globulin g/dL Albumin/Globulin Ratio TSH, Ultra Sensitive (0.36-3.74) IU/mL Urine Color (YELLOW) Urine Appearance (CLEAR) Urine pH (5.0-6.5) Ur Specific [place] (1.010-1.025) Urine Protein (NEGATIVE) mg/dL Urine Glucose (UA) (NORMAL) mg/dL Urine Ketones (NEGATIVE) mg/dL Urine Occult Blood (NEGATIVE) Urine Nitrite (NEGATIVE) Urine Bilirubin (NEGATIVE) Urine Urobilinogen (NEGATIVE) mg/dL Ur Leukocyte Esterase (NEGATIVE) Urine RBC (0-5) Urine WBC (0-5) Ur Squamous Epith Cells (NS,R,O) Urine Bacteria (NS) Digoxin < 0.2 L (<0.2) ng/mL Phenytoin (<0.4) ug/mL 03/01/19 03/01/19 03/01/19 Range/Units 01:20 01:20 01:20 WBC (4.5-12.0) X10-3/uL RBC (3.23-5.20) x10(6)uL Hgb (11.5-15.5) g/dL Hct (30.0-51.3) % MCV (80-96) fL MCH (27.7-33.6) pg MCHC (32.2-35.4) g/dL RDW (11.5-15.5) % Plt Count (125-369) X10(3)uL MPV (7.4-10.4) fL Neut % (Auto) (46-82) % Lymph % (Auto) (13-37) % [place] % (Auto) (4-12) % Eos % (Auto) (1.0-5.0) % Baso % (Auto) (0-2) % Neut # (Auto) (1.6-8.3) # Lymph # (Auto) (0.6-5.0) # [place] # (Auto) (0.0-1.3) # Eos # (Auto) (0.0-0.8) # Baso # (Auto) (0.0-0.2) # PT (8.7-11.1) INR (0.89-1.13) APTT (24.4-33.2) SECONDS D-Dimer, Quantitative (0.0-0.59) mg/LFEU POC VBG pH POC VBG pCO2 POC VBG HCO3 POC VBG Total CO2 POC VBG Base Excess Sodium (135-145) mmol/L Potassium (3.5-5.3) mmol/L Chloride (100-110) mmol/L Carbon Dioxide (21-32) mmol/L BUN (7-18) mg/dL Creatinine (0.55-1.02) mg/dL Est Cr Clr Drug Dosing mL/min Estimated GFR (MDRD) (>60) BUN/Creatinine Ratio (9-20) Glucose (80-116) mg/dL Lactic Acid (0.4-2.2) mmol/L Calcium (8.6-10.2) mg/dL Magnesium 1.8 (1.8-2.5) mg/dL Total Bilirubin (0.1-1.3) mg/dL AST (5-25) IU/L ALT (12-36) U/L Alkaline Phosphatase (56-112) IU/L Troponin I (<0.017-0.056) ng/mL NT-Pro-B Natriuret Pep (<=125) pg/mL Total Protein (6.0-8.0) g/dL Albumin (3.5-5.2) g/dL Globulin g/dL Albumin/Globulin Ratio TSH, Ultra Sensitive 9.89 H* (0.36-3.74) IU/mL Urine Color (YELLOW) Urine Appearance (CLEAR) Urine pH (5.0-6.5) Ur Specific [place] (1.010-1.025) Urine Protein (NEGATIVE) mg/dL Urine Glucose (UA) (NORMAL) mg/dL Urine Ketones (NEGATIVE) mg/dL Urine Occult Blood (NEGATIVE) Urine Nitrite (NEGATIVE) Urine Bilirubin (NEGATIVE) Urine Urobilinogen (NEGATIVE) mg/dL Ur Leukocyte Esterase (NEGATIVE) Urine RBC (0-5) Urine WBC (0-5) Ur Squamous Epith Cells (NS,R,O) Urine Bacteria (NS) Digoxin (<0.2) ng/mL Phenytoin 2.9 L (<0.4) ug/mL 03/01/19 03/01/19 03/01/19 Range/Units 02:22 03:05 03:31 WBC (4.5-12.0) X10-3/uL RBC (3.23-5.20) x10(6)uL Hgb (11.5-15.5) g/dL Hct (30.0-51.3) % MCV (80-96) fL MCH (27.7-33.6) pg MCHC (32.2-35.4) g/dL RDW (11.5-15.5) % Plt Count (125-369) X10(3)uL MPV (7.4-10.4) fL Neut % (Auto) (46-82) % Lymph % (Auto) (13-37) % [place] % (Auto) (4-12) % Eos % (Auto) (1.0-5.0) % Baso % (Auto) (0-2) % Neut # (Auto) (1.6-8.3) # Lymph # (Auto) (0.6-5.0) # [place] # (Auto) (0.0-1.3) # Eos # (Auto) (0.0-0.8) # Baso # (Auto) (0.0-0.2) # PT (8.7-11.1) INR (0.89-1.13) APTT (24.4-33.2) SECONDS D-Dimer, Quantitative (0.0-0.59) mg/LFEU POC VBG pH Cancelled 7.45 H POC VBG pCO2 Cancelled 44.3 POC VBG HCO3 Cancelled 30.6 H POC VBG Total CO2 Cancelled 32 H POC VBG Base Excess Cancelled 7 H Sodium (135-145) mmol/L Potassium (3.5-5.3) mmol/L Chloride (100-110) mmol/L Carbon Dioxide (21-32) mmol/L BUN (7-18) mg/dL Creatinine (0.55-1.02) mg/dL Est Cr Clr Drug Dosing mL/min Estimated GFR (MDRD) (>60) BUN/Creatinine Ratio (9-20) Glucose (80-116) mg/dL Lactic Acid (0.4-2.2) mmol/L Calcium (8.6-10.2) mg/dL Magnesium (1.8-2.5) mg/dL Total Bilirubin (0.1-1.3) mg/dL AST (5-25) IU/L ALT (12-36) U/L Alkaline Phosphatase (56-112) IU/L Troponin I (<0.017-0.056) ng/mL NT-Pro-B Natriuret Pep (<=125) pg/mL Total Protein (6.0-8.0) g/dL Albumin (3.5-5.2) g/dL Globulin g/dL Albumin/Globulin Ratio TSH, Ultra Sensitive (0.36-3.74) IU/mL Urine Color Yellow (YELLOW) Urine Appearance Slightly cloudy (CLEAR) Urine pH 5.0 (5.0-6.5) Ur Specific [place] 1.010 (1.010-1.025) Urine Protein Negative (NEGATIVE) mg/dL Urine Glucose (UA) Normal (NORMAL) mg/dL Urine Ketones Negative (NEGATIVE) mg/dL Urine Occult Blood Moderate H (NEGATIVE) Urine Nitrite Negative (NEGATIVE) Urine Bilirubin Negative (NEGATIVE) Urine Urobilinogen Normal (NEGATIVE) mg/dL Ur Leukocyte Esterase Moderate H (NEGATIVE) Urine RBC 5-10 H (0-5) Urine WBC 10-20 H (0-5) Ur Squamous Epith Cells Moderate H (NS,R,O) Urine Bacteria Moderate H (NS) Digoxin (<0.2) ng/mL Phenytoin (<0.4) ug/mL 03/01/19 03/01/19 03/01/19 Range/Units 06:05 06:05 06:05 WBC 7.9 (4.5-12.0) X10-3/uL RBC 4.58 (3.23-5.20) x10(6)uL Hgb 13.9 (11.5-15.5) g/dL Hct 40.9 (30.0-51.3) % MCV 89.3 (80-96) fL MCH 30.4 (27.7-33.6) pg MCHC 34.1 (32.2-35.4) g/dL RDW 13.5 (11.5-15.5) % Plt Count 200 (125-369) X10(3)uL MPV 8.8 (7.4-10.4) fL Neut % (Auto) 55.7 (46-82) % Lymph % (Auto) 27.5 (13-37) % [place] % (Auto) 14.7 H (4-12) % Eos % (Auto) 2 (1.0-5.0) % Baso % (Auto) 1 (0-2) % Neut # (Auto) 4.4 (1.6-8.3) # Lymph # (Auto) 2.2 (0.6-5.0) # [place] # (Auto) 1.2 (0.0-1.3) # Eos # (Auto) 0.1 (0.0-0.8) # Baso # (Auto) 0.0 (0.0-0.2) # PT (8.7-11.1) INR (0.89-1.13) APTT (24.4-33.2) SECONDS D-Dimer, Quantitative (0.0-0.59) mg/LFEU POC VBG pH POC VBG pCO2 POC VBG HCO3 POC VBG Total CO2 POC VBG Base Excess Sodium 128 L (135-145) mmol/L Potassium 2.6 L* (3.5-5.3) mmol/L Chloride 89 L* (100-110) mmol/L Carbon Dioxide 31 (21-32) mmol/L BUN 16 (7-18) mg/dL Creatinine 0.9 (0.55-1.02) mg/dL Est Cr Clr Drug Dosing 59.55 mL/min Estimated GFR (MDRD) > 60 (>60) BUN/Creatinine Ratio 17.8 (9-20) Glucose 149 H (80-116) mg/dL Lactic Acid (0.4-2.2) mmol/L Calcium 8.2 L (8.6-10.2) mg/dL Magnesium (1.8-2.5) mg/dL Total Bilirubin (0.1-1.3) mg/dL AST (5-25) IU/L ALT (12-36) U/L Alkaline Phosphatase (56-112) IU/L Troponin I < 0.017 L (<0.017-0.056) ng/mL NT-Pro-B Natriuret Pep (<=125) pg/mL Total Protein (6.0-8.0) g/dL Albumin (3.5-5.2) g/dL Globulin g/dL Albumin/Globulin Ratio TSH, Ultra Sensitive (0.36-3.74) IU/mL Urine Color (YELLOW) Urine Appearance (CLEAR) Urine pH (5.0-6.5) Ur Specific [place] (1.010-1.025) Urine Protein (NEGATIVE) mg/dL Urine Glucose (UA) (NORMAL) mg/dL Urine Ketones (NEGATIVE) mg/dL Urine Occult Blood (NEGATIVE) Urine Nitrite (NEGATIVE) Urine Bilirubin (NEGATIVE) Urine Urobilinogen (NEGATIVE) mg/dL Ur Leukocyte Esterase (NEGATIVE) Urine RBC (0-5) Urine WBC (0-5) Ur Squamous Epith Cells (NS,R,O) Urine Bacteria (NS) Digoxin (<0.2) ng/mL Phenytoin (<0.4) ug/mL Result Diagrams: 03/01/19 06:05 03/01/19 06:05 *Q Meaningful Use (ADM) - VTE *Q VTE Pharmacological Contraindications *Q: High INR Value - Problem List (1) Hyponatremia SNOMED Code(s): 29957992 ICD Code: E87.1 - HYPO-OSMOLALITY AND HYPONATREMIA Status: Acute Current Visit: Yes (2) Hypokalemia SNOMED Code(s): 97951430 ICD Code: E87.6 - HYPOKALEMIA Status: Acute Current Visit: Yes (3) Right upper quadrant abdominal pain SNOMED Code(s): 023789157 ICD Code: R10.11 - RIGHT UPPER QUADRANT PAIN Status: Acute Current Visit : Yes (4) Hypokalemia SNOMED Code(s): 47563085 ICD Code: E87.6 - HYPOKALEMIA Status: Acute Priority: Medium Current Visit: No Problem Details: monitor and replace IV as needed (5) Lethargy SNOMED Code(s): 776785747 ICD Code: R53.83 - OTHER FATIGUE Status: Acute Priority: Medium Current Visit: No (6) Polypharmacy SNOMED Code(s): 955729452 ICD Code: Z79.899 - OTHER [facility] (CURRENT) DRUG THERAPY Status: Acute Current Visit: No (7) Benign essential HTN SNOMED Code(s): 5027211 ICD Code: I10 - ESSENTIAL (PRIMARY) HYPERTENSION Status: Chronic Current Visit: No Problem Details: Continues antihypertensive therapy. she will also monitor low sodium diet. (8) Bipolar affective disorder SNOMED Code(s): 09677790 ICD Code: F31.9 - BIPOLAR DISORDER, UNSPECIFIED Status: Chronic Current Visit: No Qualifiers: Active/Remission status: currently active Current bipolar episode type: mixed Psychotic features: without psychotic features (9) Chronic congestive heart failure SNOMED Code(s): 80277318 ICD Code: I50.9 - HEART FAILURE, UNSPECIFIED Status: Chronic Priority: Medium Current Visit: No Problem Details: (10) Decubitus ulcer of coccygeal region, stage 2 SNOMED Code(s): 495623293 ICD Code: L89.152 - PRESSURE ULCER OF SACRAL REGION, STAGE 2 Status: Chronic Current Visit: No Problem Details: Will follow up outpatient for chronic wound management per our clinic. (11) Diabetes mellitus type 2 in obese SNOMED Code(s): 52443129 ICD Code: E11.9 - TYPE 2 DIABETES MELLITUS WITHOUT COMPLICATIONS; E66.9 - OBESITY, UNSPECIFIED Status: Chronic Current Visit: No Problem Details: We'll continue insulin regimen with home toujeo and novolog flex pen . (12) Generalized anxiety disorder SNOMED Code(s): 11615108 ICD Code: F41.1 - GENERALIZED ANXIETY DISORDER Status: Chronic Current Visit: No (13) Hypothyroidism (acquired) SNOMED Code(s): 681307867 ICD Code: E03.9 - HYPOTHYROIDISM, UNSPECIFIED Status: Chronic Current Visit: No Problem Details: Continue supplements. No evidence of over/ under treatment (14) Impaired mobility and activities of daily living SNOMED Code(s): 388567876, 817825169, 444501059 ICD Code: Z74.09 - OTHER REDUCED MOBILITY Status: Chronic Priority: High Current Visit: No Problem Details: Please see above. With regards to home health. Dietary management to continue outpatient (15) senior living current use of anticoagulant therapy SNOMED Code(s): 942990263 ICD Code: Z79.01 - FOREIGN LAW CONSULTANT (CURRENT) USE OF ANTICOAGULANTS Status: Chronic Current Visit: No (16) Morbid obesity with BMI of 70 and over, adult SNOMED Code(s): 677453763 ICD Code: E66.01 - MORBID (SEVERE) OBESITY DUE TO EXCESS CALORIES; Z68.45 - BODY MASS INDEX (BMI) 70 OR GREATER, ADULT Status: Chronic Current Visit: No Problem Details: Starting with dietary program in [place] in April. (17) Noncompliance of patient with dietary regimen SNOMED Code(s): 573578398 ICD Code: Z91.11 - PATIENT'S NONCOMPLIANCE WITH DIETARY REGIMEN Status: Chronic Current Visit: No (18) Peripheral neuropathic pain SNOMED Code(s): 910840355 ICD Code: G62.9 - POLYNEUROPATHY, UNSPECIFIED Status: Chronic Current Visit: No Problem Details: She is on neuromodulators Problem List Initiated/Reviewed/Updated: Yes Orders Last 24hrs: Active Orders 24 hr Category Date Time Status Admission Status [Patient Status] [ADT] Routine ADT 03/01/19 02:40 Active Anticoag Warfarin Education *Q [RC] PER UNIT ROUTINE Care 03/01/19 02:56 Active Blood Glucose Check, Bedside [RC] TIDMEALS Care 03/01/19 02:56 Active Cardiac Monitoring [RC] CONTINUOUS Care 03/01/19 02:57 Active EKG Documentation Completion [RC] ASDIRECTED Care 03/01/19 01:30 Active Height and Weight [RC] DAILY Care 03/01/19 02:56 Active Intake and Output [RC] QSHIFT Care 03/01/19 02:57 Active Notify Provider Vital Signs [RC] ASDIRECTED Care 03/01/19 02:57 Active Oxygen Therapy [RC] PRN Care 03/01/19 02:56 Active Pulse Oximetry [RC] CONTINUOUS Care 03/01/19 02:57 Active RT Aerosol Therapy [RC] ASDIRECTED Care 03/01/19 03:19 Active Up With Assistance [RC] ASDIRECTED Care 03/01/19 02:56 Active Vital Signs [RC] QSHIFT Care 03/01/19 02:56 Active Consult to Chief Procurement Officer [CONS] Routine Cons 03/01/19 02:56 Active Consistent Carbohydrate Diet [DIET] Diet 03/01/19 Breakfast Active Fluid Restriction [DIET] Diet 03/01/19 Lunch Ordered Chest 1V Frontal [CR] Stat Exams 03/01/19 01:30 Taken Gallbladder [Abdomen Ltd] [US] Routine Exams 03/01/19 09:31 Ordered CBC WITH AUTO DIFF [HEME] AM Lab 03/02/19 05:11 Ordered COMPREHENSIVE METABOLIC PN,CMP [CHEM] AM Lab 03/02/19 05:11 Ordered CULTURE BLOOD [BC] Urgent Lab 03/01/19 02:15 Received CULTURE BLOOD [BC] Urgent Lab 03/01/19 02:22 Received CULTURE URINE [RM] Routine Lab 03/01/19 03:05 Received THYROXINE (T4) FREE, DIRECT, S Stat Lab 03/01/19 01:20 Received Acetaminophen [Tylenol Extra Strength] Med 03/01/19 03:01 Active 1,000 mg PO Q6H PRN Albuterol [Proventil Neb Soln] Med 03/01/19 03:19 Active 2.5 mg NEB Q4H PRN Aspirin [Ecotrin] Med 03/01/19 09:00 Active 325 mg PO DAILY ClonazePAM [KlonoPIN] Med 03/01/19 09:00 Active 1 mg PO DAILY Clotrimazole [Lotrimin AF 1% Crm] Med 03/01/19 21:00 Pending 30 gm .XX BEDTIME Digoxin [Lanoxin] Med 03/01/19 09:00 Active 125 mcg PO DAILY FLUoxetine [PROzac] Med 03/01/19 09:00 Active 80 mg PO DAILY Hyoscyamine [Hyomax-SL] Med 03/01/19 03:01 Active 0.125 mg PO DAILY PRN Insulin Glarg,Human.Rec.Analog [LantUS Solostar] Med 03/01/19 09:00 Active 0 units SUBCUT BID Insulin Lispro [HumaLOG] Med 03/01/19 08:00 Active See Protocol SUBCUT TIDMEALS Ketorolac [Toradol] Med 03/01/19 09:32 Active 30 mg IVPUSH Q6H PRN Levothyroxine Med 03/01/19 06:00 Active 200 mcg PO DAILY@0600 Levothyroxine Med 03/01/19 06:00 Active 25 mcg PO DAILY@0600 Loperamide [Imodium] Med 03/01/19 03:01 Pending 2 mg PO ASDIRECTED PRN Magnesium Oxide Med 03/01/19 09:00 Active 400 mg PO DAILY Methocarbamol [Robaxin] Med 03/01/19 03:01 Active 500 mg PO TID PRN Metoprolol Succinate [Toprol XL] Med 03/01/19 09:00 Active 100 mg PO DAILY Mometasone/Formoterol [Dulera 200-5 MCG] Med 03/01/19 09:00 Active 0 puff IH BID Multivitamins,Therapeutic [Thera] Med 03/01/19 09:00 Active 1 each PO DAILY Nitrofurantoin [place]/Macrocryst [Macrobid] Med 03/01/19 09:00 Active 100 mg PO BID Nystatin [Nystatin Crm] Med 03/01/19 09:00 Active 0 gm TOP BID OXcarbazepine [Trileptal] Med 03/01/19 09:00 Active 300 mg PO BID Pantoprazole [ProTONIX] Med 03/01/19 07:30 Active 40 mg PO ACBREAKFAST Phenytoin Med 03/01/19 09:00 Active 200 mg PO BID Potassium Chloride [Klor-Con M20] Med 03/01/19 09:00 Active 20 meq PO BID Rosuvastatin [Crestor] Med 03/01/19 12:00 Active 40 mg PO WITHLUNCH Sodium Chloride 0.9% [Saline Flush] Med 03/01/19 01:31 Active 10 ml FLUSH ASDIRECTED PRN Sucralfate [Carafate] Med 03/01/19 09:00 Active 1 gm PO BID Topiramate [Topamax] Med 03/01/19 21:00 Active 100 mg PO BEDTIME Topiramate [Topamax] Med 03/01/19 09:00 Active 50 mg PO DAILY Triamcinolone Acetonide [Triamcinolone Acetonide 0.025% Med 03/01/19 09:00 Pending ] 0 gm TOP DAILY Warfarin [Coumadin] Med 03/04/19 16:00 Active 5 mg PO MO Warfarin [Coumadin] Med 03/01/19 16:00 Active 7.5 mg PO SUTUWETHFRSA risperiDONE [RisperiDAL] Med 03/01/19 09:00 Active 2 mg PO DAILY Blood Culture x2 Reflex Set [OM.PC] Urgent Oth 03/01/19 01:30 Ordered Oral Nutrition Supplement [COMM] Routine Oth 03/01/19 08:35 Ordered Saline Lock Insert [OM.PC] Routine Oth 03/01/19 01:31 Ordered VTE Pharmacological Contraindications [AST] Per Unit Oth 03/01/19 02:56 Ordered Routine Resuscitation Status Routine Resus Stat 03/01/19 02:56 Ordered EKG 12 Lead [EK] Stat Ther 03/01/19 01:30 Ordered Medication Orders Acetaminophen (Tylenol Extra Strength) 1,000 mg PO Q6H PRN PRN Reason: Pain Albuterol (Proventil Neb Soln) 2.5 mg NEB Q4H PRN PRN Reason: Wheezing Aspirin (Ecotrin) 325 mg PO DAILY [facility] Clonazepam (Klonopin) 1 mg PO DAILY [facility] Clotrimazole (Lotrimin Af 1% Crm) 30 gm .XX BEDTIME [facility] Digoxin (Lanoxin) 125 mcg PO DAILY [facility] Fluoxetine HCl (Prozac) 80 mg PO DAILY [facility] Hyoscyamine (Hyomax-Sl) 0.125 mg PO DAILY PRN PRN Reason: Abdominal Pain Insulin Glargine (Lantus Solostar) 0 units SUBCUT BID [facility] Insulin Human Lispro (Humalog) 0 unit SUBCUT TIDMEALS [facility]; Protocol Ketorolac Tromethamine (Toradol) 30 mg IVPUSH Q6H PRN PRN Reason: Abdominal Pain Stop: 03/06/19 09:33 Levothyroxine Sodium (Levothyroxine) 200 mcg PO DAILY@0600 [facility] Last Admin: 03/01/19 06:33 Dose: 200 mcg Levothyroxine Sodium (Levothyroxine) 25 mcg PO DAILY@0600 [facility] Last Admin: 03/01/19 06:34 Dose: 25 mcg Loperamide HCl (Imodium) 2 mg PO ASDIRECTED PRN PRN Reason: Diarrhea Magnesium Oxide (Magnesium Oxide) 400 mg PO DAILY [facility] Methocarbamol (Robaxin) 500 mg PO TID PRN PRN Reason: Muscle Spasm Metoprolol Succinate (Toprol Xl) 100 mg PO DAILY [facility] Mometasone Furoate/Formoterol Fumar (Dulera 200-5 Mcg) 0 puff IH BID [facility] Multivitamins (Thera) 1 each PO DAILY [facility] Nitrofurantoin Macrocrystals (Macrobid) 100 mg PO BID [facility] Nystatin (Nystatin Crm) 0 gm TOP BID [facility] Oxcarbazepine (Trileptal) 300 mg PO BID [facility] Pantoprazole Sodium (Protonix) 40 mg PO ACBREAKFAST [facility] Last Admin: 03/01/19 06:34 Dose: 40 mg Phenytoin Sodium (Phenytoin) 200 mg PO BID [facility] Potassium Chloride (Klor-Con M20) 20 meq PO BID [facility] Last Admin: 03/01/19 06:43 Dose: 20 meq Risperidone (Risperidal) 2 mg PO DAILY [facility] Rosuvastatin Calcium (Crestor) 40 mg PO WITHLUNCH [facility] Sodium Chloride (Saline Flush) 10 ml FLUSH ASDIRECTED PRN PRN Reason: Keep Vein Open Last Admin: 03/01/19 02:35 Dose: 10 ml Sucralfate (Carafate) 1 gm PO BID [facility] Topiramate (Topamax) 50 mg PO DAILY [facility] Topiramate (Topamax) 100 mg PO BEDTIME [facility] Triamcinolone Acetonide (Triamcinolone Acetonide 0.025%) 0 gm TOP DAILY [facility] Warfarin Sodium (Coumadin) 5 mg PO MO [facility] Warfarin Sodium (Coumadin) 7.5 mg PO SUTUWETHFRSA [facility] Assessment/Plan Comment:: On admit Marisol, and she is ready go some fluids, restrict IV and oral free water. I will repeat labs in the morning, along the urine osmolarity. I resumed her medications. Because of the hypokalemia and hyponatremia be the vomiting. Due to the pain in the right upper quadrant I will also ask for an ultrasound of the gallbladder. I anticipate a discharge in 1-2 days. - Mortality Measure Prognosis:: Good
[2019-03-01] MEDS: risperiDONE 1 MG Tab PO SCH ×2 (11:36→20:53)
[2019-03-01] MEDS: FLUoxetine 20 MG Cap PO SCH (11:36)
[2019-03-01] MEDS: Sucralfate 1 GM Tab PO SCH ×3 (11:36→20:53)
[2019-03-01] MEDS: Topiramate 50 MG Tab PO SCH ×2 (11:36→20:54)
[2019-03-01] MEDS: Magnesium Oxide 400 MG Tab PO SCH (11:36)
[2019-03-01] MEDS: Digoxin 125 MCG Tab PO SCH (11:37)
[2019-03-01] MEDS: OXcarbazepine 300 MG Tab PO SCH ×2 (11:37→20:54)
[2019-03-01] MEDS: Phenytoin 100 MG Cap.ER PO SCH ×2 (11:37→20:53)
[2019-03-01] MEDS: Nitrofurantoin Monohydrate/Macrocrystalline 100 MG Cap PO SCH ×2 (11:37→20:53)
[2019-03-01] MEDS: Multivitamins,Therapeutic Tab PO SCH (11:38)
[2019-03-01] MEDS: Metoprolol Succinate 100 MG Tab.ER PO SCH (11:38)
[2019-03-01] MEDS: Aspirin 325 MG Tab.EC PO SCH (11:39)
[2019-03-01] MEDS: Insulin Lispro 100 Unit/ML 3 ML KwikPen SUBCUT SCH ×3 (11:54→18:44)
[2019-03-01] MEDS: Insulin Glargine,Human Rec. Analog 100 Units/ML 3 ML Pen SUBCUT SCH ×2 (11:59→20:57)
[2019-03-01] MEDS ORDERED: Rosuvastatin 20 MG Tab PO SCH (12:00)
[2019-03-01] MEDS: ClonazePAM 0.5 MG Tab PO SCH ×4 (12:12→20:57)
[2019-03-01] MEDS ORDERED: Warfarin 2.5 MG Tab PO SCH (16:00)
[2019-03-01] MEDS ORDERED: Clotrimazole 1% Crm 30 GM Tube SCH (21:00)
[2019-03-02] MEDS: Levothyroxine 25 MCG Tab PO SCH (06:27)
[2019-03-02] MEDS: Sucralfate 1 GM Tab PO SCH (06:30)
[2019-03-02] MEDS: Pantoprazole 40 MG Tab.CR PO SCH (06:32)
[2019-03-02] MEDS: Aspirin 325 MG Tab.EC PO SCH (08:50)
[2019-03-02] MEDS: Digoxin 125 MCG Tab PO SCH (08:56)
[2019-03-02] MEDS: Potassium Chloride 20 MEQ Tab.ER PO SCH (08:56)
[2019-03-02] MEDS: Nitrofurantoin Monohydrate/Macrocrystalline 100 MG Cap PO SCH (08:57)
[2019-03-02] MEDS: Magnesium Oxide 400 MG Tab PO SCH (08:58)
[2019-03-02] MEDS: Phenytoin 100 MG Cap.ER PO SCH (08:58)
[2019-03-02] MEDS: FLUoxetine 20 MG Cap PO SCH (08:59)
--- NOTE | 2019-03-02 08:59 | PCM.PN ---
- General Info Date of Service: 03/02/19 Subjective Update: Marisol feels much better today. Abdominal pain is improved and vomiting is resolved. She stopped home and we didn't go home. She has no shortness of breath. Functional Status: Reports: Pain Controlled - Review of Systems HEENT: Reports: No Symptoms Pulmonary: Reports: No Symptoms Cardiovascular: Reports: No Symptoms Gastrointestinal: Reports: No Symptoms - Patient Data Vitals - Most Recent: Last Vital Signs Temp 97.9 F 03/02/19 00:00 Pulse 81 03/02/19 00:00 Resp 20 03/02/19 00:00 BP 100/58 L 03/02/19 00:00 Pulse Ox 98 03/02/19 02:57 Weight - Most Recent: 146.964 kg I&O - Last 24 Hours: Intake & Output 03/01/19 03/02/19 03/02/19 22:59 06:59 14:59 Intake Total 175 100 Output Total 1100 800 Balance -925 -700 Lab Results Last 24 Hours: Laboratory Results - last 24 hr 03/01/19 03/01/19 03/01/19 Range/Units 06:48 11:47 16:37 WBC (4.5-12.0) X10-3/uL RBC (3.23-5.20) x10(6)uL Hgb (11.5-15.5) g/dL Hct (30.0-51.3) % MCV (80-96) fL MCH (27.7-33.6) pg MCHC (32.2-35.4) g/dL RDW (11.5-15.5) % Plt Count (125-369) X10(3)uL MPV (7.4-10.4) fL Neut % (Auto) (46-82) % Lymph % (Auto) (13-37) % [place] % (Auto) (4-12) % Eos % (Auto) (1.0-5.0) % Baso % (Auto) (0-2) % Neut # (Auto) (1.6-8.3) # Lymph # (Auto) (0.6-5.0) # [place] # (Auto) (0.0-1.3) # Eos # (Auto) (0.0-0.8) # Baso # (Auto) (0.0-0.2) # Sodium (135-145) mmol/L Potassium (3.5-5.3) mmol/L Chloride (100-110) mmol/L Carbon Dioxide (21-32) mmol/L BUN (7-18) mg/dL Creatinine (0.55-1.02) mg/dL Est Cr Clr Drug Dosing mL/min Estimated GFR (MDRD) (>60) BUN/Creatinine Ratio (9-20) Glucose (80-116) mg/dL POC Glucose 134 H 148 H 132 H (80-116) mg/dL Calcium (8.6-10.2) mg/dL Total Bilirubin (0.1-1.3) mg/dL AST (5-25) IU/L ALT (12-36) U/L Alkaline Phosphatase (56-112) IU/L Total Protein (6.0-8.0) g/dL Albumin (3.5-5.2) g/dL Globulin g/dL Albumin/Globulin Ratio 03/02/19 03/02/19 03/02/19 Range/Units 06:20 06:20 06:26 WBC 6.6 (4.5-12.0) X10-3/uL RBC 4.60 (3.23-5.20) x10(6)uL Hgb 13.9 (11.5-15.5) g/dL Hct 41.3 (30.0-51.3) % MCV 89.8 (80-96) fL MCH 30.2 (27.7-33.6) pg MCHC 33.7 (32.2-35.4) g/dL RDW 13.7 (11.5-15.5) % Plt Count 178 (125-369) X10(3)uL MPV 9.3 (7.4-10.4) fL Neut % (Auto) 51.3 (46-82) % Lymph % (Auto) 30.6 (13-37) % [place] % (Auto) 14.7 H (4-12) % Eos % (Auto) 3 (1.0-5.0) % Baso % (Auto) 1 (0-2) % Neut # (Auto) 3.4 (1.6-8.3) # Lymph # (Auto) 2.0 (0.6-5.0) # [place] # (Auto) 1.0 (0.0-1.3) # Eos # (Auto) 0.2 (0.0-0.8) # Baso # (Auto) 0.0 (0.0-0.2) # Sodium 133 L (135-145) mmol/L Potassium 3.2 L (3.5-5.3) mmol/L Chloride 94 L D (100-110) mmol/L Carbon Dioxide 32 (21-32) mmol/L BUN 14 (7-18) mg/dL Creatinine 0.8 (0.55-1.02) mg/dL Est Cr Clr Drug Dosing 67.00 mL/min Estimated GFR (MDRD) > 60 (>60) BUN/Creatinine Ratio 17.5 (9-20) Glucose 143 H (80-116) mg/dL POC Glucose 148 H (80-116) mg/dL Calcium 8.3 L (8.6-10.2) mg/dL Total Bilirubin 0.2 (0.1-1.3) mg/dL AST 24 (5-25) IU/L ALT 33 (12-36) U/L Alkaline Phosphatase 109 (56-112) IU/L Total Protein 6.6 (6.0-8.0) g/dL Albumin 2.9 L (3.5-5.2) g/dL Globulin 3.7 g/dL Albumin/Globulin Ratio 0.8 Micky Results Last 24 Hours: Microbiology 03/01/19 02:22 Aerobic Blood Culture - Preliminary Blood - Venous - Lab Draw NO GROWTH AFTER 1 DAY Anaerobic Blood Culture - Preliminary NO GROWTH AFTER 1 DAY 03/01/19 02:15 Aerobic Blood Culture - Preliminary Blood - Venous NO GROWTH AFTER 1 DAY Anaerobic Blood Culture - Preliminary NO GROWTH AFTER 1 DAY 03/01/19 03:05 Urine Culture - Preliminary Urine, Clean Catch MIXED GERALD SUGGESTIVE OF CONTAMINATION. Med Orders - Current: Current Medications Acetaminophen (Tylenol Extra Strength) 1,000 mg PO Q6H PRN PRN Reason: Pain Albuterol (Proventil Neb Soln) 2.5 mg NEB Q4H PRN PRN Reason: Wheezing Aspirin (Ecotrin) 325 mg PO DAILY [facility] Last Admin: 03/01/19 11:39 Dose: 325 mg Clonazepam (Klonopin) 0.5 mg PO BID [facility] Last Admin: 03/01/19 20:57 Dose: 0.5 mg Digoxin (Lanoxin) 125 mcg PO DAILY [facility] Last Admin: 03/01/19 11:37 Dose: 125 mcg Fluoxetine HCl (Prozac) 80 mg PO DAILY [facility] Last Admin: 03/01/19 11:36 Dose: 80 mg Hyoscyamine (Hyomax-Sl) 0.125 mg PO DAILY PRN PRN Reason: Abdominal Pain Insulin Glargine (Lantus Solostar) 6 units SUBCUT BID [facility] Last Admin: 03/01/19 20:57 Dose: 6 units Insulin Human Lispro (Humalog) 0 unit SUBCUT TIDMEALS [facility]; Protocol Last Admin: 03/01/19 18:44 Dose: Not Given Ketorolac Tromethamine (Toradol) 30 mg IVPUSH Q6H PRN PRN Reason: Abdominal Pain Stop: 03/06/19 09:33 Levothyroxine Sodium (Levothyroxine) 200 mcg PO DAILY@0600 [facility] Last Admin: 03/02/19 06:27 Dose: 200 mcg Levothyroxine Sodium (Levothyroxine) 25 mcg PO DAILY@0600 [facility] Last Admin: 03/02/19 06:27 Dose: 25 mcg Loperamide HCl (Imodium) 2 mg PO ASDIRECTED PRN PRN Reason: Diarrhea Magnesium Oxide (Magnesium Oxide) 400 mg PO DAILY [facility] Last Admin: 03/01/19 11:36 Dose: 400 mg Methocarbamol (Robaxin) 500 mg PO TID PRN PRN Reason: Muscle Spasm Metoprolol Succinate (Toprol Xl) 100 mg PO DAILY [facility] Last Admin: 03/01/19 11:38 Dose: 100 mg Multivitamins (Thera) 1 each PO DAILY [facility] Last Admin: 03/01/19 11:38 Dose: 1 each Nitrofurantoin Macrocrystals (Macrobid) 100 mg PO BID [facility] Last Admin: 03/01/19 20:53 Dose: 100 mg Oxcarbazepine (Trileptal) 300 mg PO BID [facility] Last Admin: 03/01/19 20:54 Dose: 300 mg Pantoprazole Sodium (Protonix) 40 mg PO ACBREAKFAST [facility] Last Admin: 03/02/19 06:32 Dose: 40 mg Phenytoin Sodium (Phenytoin) 200 mg PO BID [facility] Last Admin: 03/01/19 20:53 Dose: 200 mg Potassium Chloride (Klor-Con M20) 20 meq PO BID [facility] Last Admin: 03/01/19 20:53 Dose: 20 meq Risperidone (Risperidal) 2 mg PO BID [facility] Last Admin: 03/01/19 20:53 Dose: 2 mg Rosuvastatin Calcium (Crestor) 40 mg PO WITHLUNCH [facility] Last Admin: 03/01/19 11:36 Dose: 40 mg Sodium Chloride (Saline Flush) 10 ml FLUSH ASDIRECTED PRN PRN Reason: Keep Vein Open Last Admin: 03/01/19 02:35 Dose: 10 ml Sucralfate (Carafate) 1 gm PO QIDACANDBED [facility] Last Admin: 03/02/19 06:30 Dose: 1 gm Topiramate (Topamax) 100 mg PO BID [facility] Last Admin: 03/01/19 20:54 Dose: 100 mg Warfarin Sodium (Coumadin) 5 mg PO MO [facility] Warfarin Sodium (Coumadin) 7.5 mg PO SUTUWETHFRSA [facility] Last Admin: 03/01/19 15:40 Dose: 7.5 mg Discontinued Medications Albuterol (Ventolin Hfa) gm INH Q6H PRN PRN Reason: Wheezing Clonazepam (Klonopin) 0.5 mg PO BID [facility] Last Admin: 03/01/19 12:14 Dose: Not Given Sodium Chloride (Normal Saline) 500 mls @ 500 mls/hr IV .BOLUS ONE Stop: 03/01/19 02:34 Last Admin: 03/01/19 02:49 Dose: Not Given Sodium Chloride (Normal Saline) 500 mls @ 999 mls/hr IV .BOLUS ONE Stop: 03/01/19 03:05 Last Admin: 03/01/19 02:35 Dose: 999 mls/hr Sodium Chloride (Normal Saline) 1,000 mls @ 100 mls/hr IV ASDIRECTED [facility] Last Admin: 03/01/19 06:35 Dose: 100 mls/hr Potassium Chloride (Klor-Con M20) Confirm Administered Dose 20 meq .ROUTE .STK- MED ONE Stop: 03/01/19 06:42 Last Admin: 03/01/19 08:22 Dose: Not Given - Exam Quality Assessment: Supplemental Oxygen General: Alert HEENT: Pupils Equal Neck: Supple Lungs: Clear to Auscultation Cardiovascular: Irregular Rhythm Extremities: Pedal Edema - Problem List & Annotations (1) Hyponatremia SNOMED Code(s): 44520676 Code(s): E87.1 - HYPO-OSMOLALITY AND HYPONATREMIA Status: Acute Current Visit: Yes (2) Hypokalemia SNOMED Code(s): 89081956 Code(s): E87.6 - HYPOKALEMIA Status: Acute Current Visit: Yes (3) Right upper quadrant abdominal pain SNOMED Code(s): 541470808 Code(s): R10.11 - RIGHT UPPER QUADRANT PAIN Status: Acute Current Visit: Yes (4) Hypokalemia SNOMED Code(s): 72903401 Code(s): E87.6 - HYPOKALEMIA Status: Acute Priority: Medium Current Visit: No Annotation/Comment:: monitor and replace IV as needed (5) Lethargy SNOMED Code(s): 766191895 Code(s): R53.83 - OTHER FATIGUE Status: Acute Priority: Medium Current Visit: No (6) Polypharmacy SNOMED Code(s): 263523194 Code(s): Z79.899 - OTHER MANAGER DOMESTIC (CURRENT) DRUG THERAPY Status: Acute Current Visit: No (7) Benign essential HTN SNOMED Code(s): 2839233 Code(s): I10 - ESSENTIAL (PRIMARY) HYPERTENSION Status: Chronic Current Visit: No Annotation/Comment:: Continues antihypertensive therapy. she will also monitor low sodium diet. (8) Bipolar affective disorder SNOMED Code(s): 98919426 Code(s): F31.9 - BIPOLAR DISORDER, UNSPECIFIED Status: Chronic Current Visit: No Qualifiers: Active/Remission status: currently active Current bipolar episode type: mixed Psychotic features: without psychotic features (9) Chronic congestive heart failure SNOMED Code(s): 78338015 Code(s): I50.9 - HEART FAILURE, UNSPECIFIED Status: Chronic Priority: Medium Current Visit: No Annotation/Comment:: (10) Decubitus ulcer of coccygeal region, stage 2 SNOMED Code(s): 700578293 Code(s): L89.152 - PRESSURE ULCER OF SACRAL REGION, STAGE 2 Status: Chronic Current Visit: No Annotation/Comment:: Will follow up outpatient for chronic wound management per our clinic. (11) Diabetes mellitus type 2 in obese SNOMED Code(s): 83926092 Code(s): E11.9 - TYPE 2 DIABETES MELLITUS WITHOUT COMPLICATIONS; E66.9 - OBESITY, UNSPECIFIED Status: Chronic Current Visit: No Annotation/Comment: : We'll continue insulin regimen with home toujeo and novolog flex pen . (12) Generalized anxiety disorder SNOMED Code(s): 21745792 Code(s): F41.1 - GENERALIZED ANXIETY DISORDER Status: Chronic Current Visit: No (13) Hypothyroidism (acquired) SNOMED Code(s): 675372185 Code(s): E03.9 - HYPOTHYROIDISM, UNSPECIFIED Status: Chronic Current Visit: No Annotation/Comment:: Continue supplements. No evidence of over/ under treatment (14) Impaired mobility and activities of daily living SNOMED Code(s): 895892846, 694573263, 437605391 Code(s): Z74.09 - OTHER REDUCED MOBILITY Status: Chronic Priority: High Current Visit: No Annotation/Comment:: Please see above. With regards to home health. 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 (17) Noncompliance of patient with dietary regimen SNOMED Code(s): 368152103 Code(s): Z91.11 - PATIENT'S NONCOMPLIANCE WITH DIETARY REGIMEN Status: Chronic Current Visit: No (18) Peripheral neuropathic pain SNOMED Code(s): 097380268 Code(s): G62.9 - POLYNEUROPATHY, UNSPECIFIED Status: Chronic Current Visit: No Annotation/Comment:: She is on neuromodulators - Problem List Review Problem List Initiated/Reviewed/Updated: Yes - My Orders Last 24 Hours: My Active Orders 03/01/19 09:31 Gallbladder [Abdomen Ltd] [US] Routine 03/01/19 09:32 Ketorolac [Toradol] 30 mg IVPUSH Q6H PRN 03/01/19 10:00 Insulin Glarg,Human.Rec.Analog [LantUS Solostar] 6 units SUBCUT BID risperiDONE [RisperiDAL] 2 mg PO BID 03/01/19 11:30 Sucralfate [Carafate] 1 gm PO QIDACANDBED 03/01/19 12:00 ClonazePAM [KlonoPIN] 0.5 mg PO BID 03/01/19 Lunch Fluid Restriction [DIET] - Plan Plan:: gallbladder ultrasound was negative. Patient is ready to go home today potassium is improved sodium 13.3 Discharge home on regular medications see Hoda Driver Monday
[2019-03-02] MEDS: risperiDONE 1 MG Tab PO SCH (09:00)
[2019-03-02] MEDS: Metoprolol Succinate 100 MG Tab.ER PO SCH (09:01)
[2019-03-02] MEDS: Multivitamins,Therapeutic Tab PO SCH (09:01)
[2019-03-02] MEDS: Topiramate 50 MG Tab PO SCH (09:01)
[2019-03-02] MEDS: OXcarbazepine 300 MG Tab PO SCH (09:02)
[2019-03-02 09:03] VITALS: BP 118/71; PULSE 60
[2019-03-02] MEDS: Insulin Lispro 100 Unit/ML 3 ML KwikPen SUBCUT SCH (09:03)
[2019-03-02] MEDS: ClonazePAM 0.5 MG Tab PO SCH (09:06)
[2019-03-02] MEDS: Insulin Glargine,Human Rec. Analog 100 Units/ML 3 ML Pen SUBCUT SCH (09:07)
[2019-03-04] MEDS ORDERED: Warfarin 5 MG Tab PO SCH (16:00)
== END 2019-03-02 10:44 | disposition home health service (06) ==
LOC: FB.ED 01:06 → FB.MS 02:52
PROVIDERS: ADMIT Emergency Medicine; ATTEND Family Medicine
DX: E87.1 Hypo-osmolality and hyponatremia (principal); E87.6 Hypokalemia; R10.11 Right upper quadrant pain; R53.83 Other fatigue; F31.9 Bipolar disorder, unspecified; F31.60 Bipolar disorder, current episode mixed, unspecified; L89.152 Pressure ulcer of sacral region, stage 2; E11.9 Type 2 diabetes mellitus without complications; F41.1 Generalized anxiety disorder; E03.9 Hypothyroidism, unspecified; E66.01 Morbid (severe) obesity due to excess calories; G62.9 Polyneuropathy, unspecified; I11.0 Hypertensive heart disease with heart failure; I50.9 Heart failure, unspecified; J45.909 Unspecified asthma, uncomplicated; K21.9 Gastro-esophageal reflux disease without esophagitis; F41.9 Anxiety disorder, unspecified; R56.9 Unspecified convulsions; E86.0 Dehydration; E87.8 Other disorders of electrolyte and fluid balance, not elsewhere classified; Z91.11 Patient's noncompliance with dietary regimen; Z79.899 Other long term (current) drug therapy; Z74.09 Other reduced mobility; Z79.01 Long term (current) use of anticoagulants; Z88.8 Allergy status to other drugs, medicaments and biological substances; Z88.5 Allergy status to narcotic agent; Z88.1 Allergy status to other antibiotic agents; Z79.82 Long term (current) use of aspirin; Z79.4 Long term (current) use of insulin; Z68.43 Body mass index [BMI] 50.0-59.9, adult
CPT/HCPCS: 36415; 71045; 76705; 80048; 80053; 80162; 80185; 81001; 82803; 82962; 83605; 83735; 83880; 84439; 84443; 84484; 85025; 85379; 85610; 85730; 87040; 87086; 93005; 96360; 96361; 99285; A9270; G0378; J1815; J7030

== ENCOUNTER 2019-04-18 04:09 | Emergency (ER) | payer MEDICAID ==
[2019-04-18] MEDS ORDERED: traMADol 50 MG Tab PO ONE (05:32)
[2019-04-18] MEDS ORDERED: Ketorolac 60 MG/2 ML SDV IM ONE (05:32)
[2019-04-18] MEDS ORDERED: Acetaminophen 500 MG Tab PO ONE (05:32)
--- NOTE | 2019-04-18 05:39 | EDM.PDOC ---
ED HPI GENERAL MEDICAL PROBLEM - General Chief Complaint: Lower Extremity Injury/Pain Stated Complaint: FALL Time Seen by Provider: 04/18/19 04:10 Source of Information: Reports: Patient History Limitations: Reports: No Limitations - History of Present Illness INITIAL COMMENTS - FREE TEXT/NARRATIVE: Patient presented to the ED because she slipped and fell on her left hip. She has a problem with gait and ambulation due to her body habitus. She c/o 5/10 pain which is worse with movements. There was no other injuries sustained after the fall. 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 hip Pain Score (Numeric/FACES): 10 - Related Data Allergies Allergy/AdvReac Type Severity Reaction Status Date / Time cefazolin sodium [From Ancef] Allergy Rash Verified 04/18/19 04:19 codeine phosphate Allergy Hives Verified 04/18/19 04:19 [From Tylenol-Codeine #3] gatifloxacin Allergy Nausea and Verified 04/18/19 04:19 Vomiting levofloxacin [From Levaquin] Allergy Rash Verified 04/18/19 04:19 methylprednisolone Allergy Cannot Verified 04/18/19 04:19 Remember piperacillin sodium Allergy Hives Verified 04/18/19 04:19 [From Zosyn] tazobactam sodium Allergy Hives Verified 04/18/19 04:19 [From Zosyn] Home Meds: Home Meds Phenytoin Sodium Extended [Dilantin] 200 mg PO BID #120 capsule 05/29/14 [Rx] Aspirin 325 mg PO DAILY 12/21/14 [History] Loperamide HCl [Loperamide] 2 mg PO ASDIRECTED PRN 11/01/15 [History] Multivitamins/Min/Ca/FA/Iron [Thera-M] 1 tab PO DAILY 11/01/15 [History] OXcarbazepine [Trileptal] 300 mg PO BID 11/01/15 [History] Pyrithione Zinc [Dandruff Shampoo] 1 applic TOP DAILY PRN 04/04/16 [History] Albuterol [Ventolin HFA] 2 puff INH Q6H PRN 06/01/17 [History] EPINEPHrine [Epinephrine] 0.3 mg IJ ASDIRECTED PRN 06/01/17 [History] Furosemide [Lasix] 40 mg PO BID 06/01/17 [History] Levothyroxine 225 mcg PO Q48H 06/01/17 [History] Rosuvastatin [Crestor] 40 mg PO WITHLUNCH 06/01/17 [History] risperiDONE 2 mg PO BID 06/01/17 [History] FLUoxetine HCl [Prozac] 80 mg PO DAILY 07/01/17 [History] Warfarin Sodium [Jantoven] 7.5 mg PO SUTUWETHFRSA 07/01/17 [History] Digoxin 0.125 mg PO Q48H 10/16/17 [History] Hyoscyamine [Levsin] 0.125 mg PO DAILY PRN 10/16/17 [History] Insulin Aspart [NovoLOG] 0 - 10 units SQ BIDMEALS 10/16/17 [History] Insulin Glarg,Human.Rec.Analog [Lantus] 6 units SQ BID 10/16/17 [History] Metoprolol Succinate 100 mg PO DAILY 10/16/17 [History] Potassium Chloride [Klor-Con M20] 20 meq PO DAILY 10/16/17 [History] Sucralfate 1 gm PO QIDACANDBED 10/16/17 [History] Topiramate 100 mg PO BID 10/16/17 [History] Acetaminophen [Tylenol Extra Strength] 1,000 mg Q6H PRN 03/01/19 [History] ClonazePAM [KlonoPIN] 0.5 mg PO BID 03/01/19 [History] Magnesium 250 mg PO DAILY 03/01/19 [History] Methocarbamol [Robaxin] 500 mg PO TID PRN 03/01/19 [History] Warfarin Sodium [Jantoven] 5 mg MO 03/01/19 [History] traMADol [Ultram] 100 mg PO Q8H PRN #30 tablet 04/18/19 [Rx] Past Medical History HEENT History: Reports: Cataract, Other (See Below) Other HEENT History: bilat cataract Cardiovascular History: Reports: Afib, Heart Failure, High Cholesterol, Hypertension Other Cardiovascular History: chronic lymphedema, chronic atrial fibrillation Respiratory History: Reports: Asthma, Other (See Below) Other Respiratory History: On O2 @ 4L/NC @ home. Gastrointestinal History: Reports: GERD Genitourinary History: Reports: UTI, Recurrent EAP CLINICIAN History: Reports: Other (See Below) Other EAP CLINICIAN History: 1, para1, with a normal delivery Musculoskeletal History: Reports: Fracture, Other (See Below) Other Musculoskeletal History: hx R wrist Neurological History: Reports: Migraines Psychiatric History: Reports: Anxiety, Bipolar, Depression, Psych Hospitalization(s) Other Psychiatric History: history of substance abuse Endocrine/Metabolic History: Reports: Diabetes, Type II, Obesity/BMI 30+, Other (See Below) Other Endocrine/Metabolic History: diabetic; unknown which type Hematologic History: Reports: Anticoagulation Therapy, Blood Transfusion(s) Immunologic History: Reports: None Oncologic (Cancer) History: Reports: None Dermatologic History: Reports: Decubitus Ulcer, Other (See Below) Other Dermatologic History: dermatitis to lower legs, hx lymph edema - Infectious Disease History Infectious Disease History: Reports: Chicken Pox, MRSA Other Infectious Disease History: had tests was cleared of MRSA - Past Surgical History Head Surgeries/Procedures: Reports: None HEENT Surgical History: Reports: Tonsillectomy Cardiovascular Surgical History: Reports: None Respiratory Surgical History: Reports: None GI Surgical History: Reports: Colonoscopy Female Surgical History: Reports: D&C Neurological Surgical History: Reports: None Social & Family History - Family History Family Medical History: Unobtainable Cardiac: Reports: CAD Respiratory: Reports: Asthma, Sleep Apnea, Other (See Below) Other Respiratory Family Hisory: pt refuses to be tested for sleep apnea but family is pretty sure she has it. Oncologic: Reports: Lung - Tobacco Use Smoking Status *Q: Former Smoker Years of Tobacco use: 7 Used Tobacco, but Quit: Yes Month/Year Tobacco Last Used: 1999 - Caffeine Use Caffeine Use: Reports: Coffee, Soda Other Caffeine Use: 3 cups a day - Recreational Drug Use Recreational Drug Use: No - Living Situation & Occupation Living situation: Reports: Single, with Significant Other Occupation: Unemployed ED ROS GENERAL - Review of Systems Review Of Systems: See Below Constitutional: Reports: No Symptoms HEENT: Reports: No Symptoms Respiratory: Reports: No Symptoms Cardiovascular: Reports: No Symptoms Endocrine: Reports: No Symptoms GI/Abdominal: Reports: No Symptoms : Reports: No Symptoms Musculoskeletal: Reports: No Symptoms Skin: Reports: No Symptoms Neurological: Reports: No Symptoms Psychiatric: Reports: No Symptoms Hematologic/Lymphatic: Reports: No Symptoms Immunologic: Reports: No Symptoms ED EXAM,LOWER BACK PAIN/INJURY - Physical Exam Exam: See Below Exam Limited By: No Limitations General Appearance: Alert, No Apparent Distress Respiratory/Chest: No Respiratory Distress, Lungs Clear, Normal Breath Sounds, No Accessory Muscle Use, Chest Non-Tender Cardiovascular: Normal Peripheral Pulses, Regular Rate, Rhythm, No Edema, No Gallop, No JVD, No Murmur GI/Abdominal: Normal Bowel Sounds Extremities: Normal Inspection, Other (tenderness over the left hip area) Neurological: Alert, Normal Mood/Affect, Normal Dorsiflexion, CN II-XII Intact Course - Vital Signs Text/Narrative:: CT pelvis and hip-see result,was discussed with patient and verbalized full understanding toradol 60 mg IM x1 tramadol 100 mg po x1 tylenol 1000 mg po x1 Last Recorded V/S: Last Vital Signs Temp 36.4 C 04/18/19 04:10 Pulse 79 04/18/19 04:10 Resp 20 04/18/19 04:10 BP 134/42 L 04/18/19 04:10 Pulse Ox 97 04/18/19 04:10 - Orders/Labs/Meds Orders: Active Orders 24 hr Category Date Time Status Hip Min 2V or 3V w Pelvis Lt [CR] Stat Exams 04/18/19 04:40 Stop Req Pelvis wo Cont [CT] Stat Exams 04/18/19 05:04 Taken Meds: Medications Discontinued Medications Generic Name Dose Route Start Last Admin Trade Name Freq PRN Reason Stop Dose Admin Acetaminophen 1,000 mg 04/18/19 05:32 Tylenol Extra Strength PO 04/18/19 05:33 ONETIME ONE Ketorolac Tromethamine 60 mg 04/18/19 05:32 Toradol IM 04/18/19 05:33 ONETIME ONE Tramadol HCl 100 mg 04/18/19 05:32 Ultram PO 04/18/19 05:33 ONETIME ONE Departure - Departure Time of Disposition: 06:00 Disposition: Home, Self-Care 01 Condition: Good Clinical Impression: Sprain of hip, Contusion of hip - Discharge Information Prescriptions: traMADol [Ultram] 100 mg PO Q8H PRN #30 tablet PRN Reason: Pain Referrals: Hoda Driver NP [Primary Care Provider] - Additional Instructions: please read discharge on sprain and contusion take tramadol 100 mg with tylenol 1000 mg every 8 hours as needed for pain follow up as needed Sepsis Event Note - Evaluation Sepsis Screening Result: No Definite Risk - Focused Exam Vital Signs: Vital Signs Temp Pulse Resp BP Pulse Ox 04/18/19 04:10 36.4 C 79 20 134/42 L 97 Date Exam was Performed: 04/18/19 Time Exam was Performed: 05:34 - My Orders Last 24 Hours: My Active Orders 04/18/19 04:40 Hip Min 2V or 3V w Pelvis Lt [CR] Stat 04/18/19 05:04 Pelvis wo Cont [CT] Stat - Assessment/Plan Last 24 Hours: My Active Orders 04/18/19 04:40 Hip Min 2V or 3V w Pelvis Lt [CR] Stat 04/18/19 05:04 Pelvis wo Cont [CT] Stat
[2019-04-18 07:25] VITALS: BP 111/53; PULSE 69
== END 2019-04-18 07:15 | disposition home or self-care (01) ==
LOC: FB.ED 04:09
DX: S73.102A Unspecified sprain of left hip, initial encounter (principal); E78.00 Pure hypercholesterolemia, unspecified; I11.0 Hypertensive heart disease with heart failure; I50.9 Heart failure, unspecified; I48.91 Unspecified atrial fibrillation; E11.9 Type 2 diabetes mellitus without complications; E66.9 Obesity, unspecified; F32.9 Major depressive disorder, single episode, unspecified; F41.9 Anxiety disorder, unspecified; Z88.8 Allergy status to other drugs, medicaments and biological substances; Z88.5 Allergy status to narcotic agent; Z88.1 Allergy status to other antibiotic agents; Z79.82 Long term (current) use of aspirin; Z79.899 Other long term (current) drug therapy; Z79.01 Long term (current) use of anticoagulants; Z87.891 Personal history of nicotine dependence; Z79.4 Long term (current) use of insulin; Z68.43 Body mass index [BMI] 50.0-59.9, adult; W19.XXXA Unspecified fall, initial encounter
CPT/HCPCS: 72192; 96372; 99284; A9270; J1885

== ENCOUNTER 2019-04-19 21:42 | Emergency (ER) | payer MEDICAID ==
--- NOTE | 2019-04-19 22:09 | EDM.PDOC ---
ED HPI GENERAL MEDICAL PROBLEM - General Stated Complaint: palpitation Time Seen by Provider: 04/19/19 22:06 Source of Information: Reports: Patient History Limitations: Reports: No Limitations - History of Present Illness INITIAL COMMENTS - FREE TEXT/NARRATIVE: pt with Hx of afib, comes from home by EMS with concerns for palpitation that started about 1 hr ago, report feeling little light headed and little sob, denies any chest pain or any other associated sx or concerns, states her HR was 150 at home , pt is on Coumadin, digoxin and metoprolol. she is here with stable vitals and HR at 110 - Related Data Allergies Allergy/AdvReac Type Severity Reaction Status Date / Time cefazolin sodium [From Ancef] Allergy Rash Verified 04/18/19 04:19 codeine phosphate Allergy Hives Verified 04/18/19 04:19 [From Tylenol-Codeine #3] gatifloxacin Allergy Nausea and Verified 04/18/19 04:19 Vomiting levofloxacin [From Levaquin] Allergy Rash Verified 04/18/19 04:19 methylprednisolone Allergy Cannot Verified 04/18/19 04:19 Remember piperacillin sodium Allergy Hives Verified 04/18/19 04:19 [From Zosyn] tazobactam sodium Allergy Hives Verified 04/18/19 04:19 [From Zosyn] Home Meds: Home Meds Phenytoin Sodium Extended [Dilantin] 200 mg PO BID #120 capsule 05/29/14 [Rx] Aspirin 325 mg PO DAILY 12/21/14 [History] Loperamide HCl [Loperamide] 2 mg PO ASDIRECTED PRN 11/01/15 [History] Multivitamins/Min/Ca/FA/Iron [Thera-M] 1 tab PO DAILY 11/01/15 [History] OXcarbazepine [Trileptal] 300 mg PO BID 11/01/15 [History] Pyrithione Zinc [Dandruff Shampoo] 1 applic TOP DAILY PRN 04/04/16 [History] Albuterol [Ventolin HFA] 2 puff INH Q6H PRN 06/01/17 [History] EPINEPHrine [Epinephrine] 0.3 mg IJ ASDIRECTED PRN 06/01/17 [History] Furosemide [Lasix] 40 mg PO BID 06/01/17 [History] Levothyroxine 225 mcg PO Q48H 06/01/17 [History] Rosuvastatin [Crestor] 40 mg PO WITHLUNCH 06/01/17 [History] risperiDONE 2 mg PO BID 06/01/17 [History] FLUoxetine HCl [Prozac] 80 mg PO DAILY 07/01/17 [History] Warfarin Sodium [Jantoven] 7.5 mg PO SUTUWETHFRSA 07/01/17 [History] Digoxin 0.125 mg PO Q48H 10/16/17 [History] Hyoscyamine [Levsin] 0.125 mg PO DAILY PRN 10/16/17 [History] Insulin Aspart [NovoLOG] 0 - 10 units SQ BIDMEALS 10/16/17 [History] Insulin Glarg,Human.Rec.Analog [Lantus] 6 units SQ BID 10/16/17 [History] Metoprolol Succinate 100 mg PO DAILY 10/16/17 [History] Potassium Chloride [Klor-Con M20] 20 meq PO DAILY 10/16/17 [History] Sucralfate 1 gm PO QIDACANDBED 10/16/17 [History] Topiramate 100 mg PO BID 10/16/17 [History] Acetaminophen [Tylenol Extra Strength] 1,000 mg Q6H PRN 03/01/19 [History] ClonazePAM [KlonoPIN] 0.5 mg PO BID 03/01/19 [History] Magnesium 250 mg PO DAILY 03/01/19 [History] Methocarbamol [Robaxin] 500 mg PO TID PRN 03/01/19 [History] Warfarin Sodium [Jantoven] 5 mg MO 03/01/19 [History] traMADol [Ultram] 100 mg PO Q8H PRN #30 tablet 04/18/19 [Rx] Past Medical History HEENT History: Reports: Cataract, Other (See Below) Other HEENT History: bilat cataract Cardiovascular History: Reports: Afib, Heart Failure, High Cholesterol, Hypertension Other Cardiovascular History: chronic lymphedema, chronic atrial fibrillation Respiratory History: Reports: Asthma, Other (See Below) Other Respiratory History: On O2 @ 4L/[place] @ home. Gastrointestinal History: Reports: GERD Genitourinary History: Reports: UTI, Recurrent PA[employer] SUPERVISOR History: Reports: Other (See Below) Other [employer] SUPERVISOR History: 1, para1, with a normal delivery Musculoskeletal History: Reports: Fracture, Other (See Below) Other Musculoskeletal History: hx R wrist Neurological History: Reports: Migraines Psychiatric History: Reports: Anxiety, Bipolar, Depression, Psych Hospitalization(s) Other Psychiatric History: history of substance abuse Endocrine/Metabolic History: Reports: Diabetes, Type II, Obesity/BMI 30+, Other (See Below) Other Endocrine/Metabolic History: diabetic; unknown which type Hematologic History: Reports: Anticoagulation Therapy, Blood Transfusion(s) Immunologic History: Reports: None Oncologic (Cancer) History: Reports: None Dermatologic History: Reports: Decubitus Ulcer, Other (See Below) Other Dermatologic History: dermatitis to lower legs, hx lymph edema - Infectious Disease History Infectious Disease History: Reports: Chicken Pox, MRSA Other Infectious Disease History: had tests was cleared of MRSA - Past Surgical History Head Surgeries/Procedures: Reports: None HEENT Surgical History: Reports: Tonsillectomy Cardiovascular Surgical History: Reports: None Respiratory Surgical History: Reports: None GI Surgical History: Reports: Colonoscopy Female Surgical History: Reports: D&C Neurological Surgical History: Reports: None Social & Family History - Family History Family Medical History: Unobtainable Cardiac: Reports: CAD Respiratory: Reports: Asthma, Sleep Apnea, Other (See Below) Other Respiratory Family Hisory: pt refuses to be tested for sleep apnea but family is pretty sure she has it. Oncologic: Reports: Lung - Caffeine Use Caffeine Use: Reports: Coffee, Soda Other Caffeine Use: 3 cups a day - Living Situation & Occupation Living situation: Reports: Single, with Significant Other Occupation: Unemployed ED ROS GENERAL - Review of Systems Review Of Systems: See Below Constitutional: Reports: No Symptoms HEENT: Reports: No Symptoms Respiratory: Reports: No Symptoms Cardiovascular: Reports: Dyspnea on Exertion, Lightheadedness, Palpitations GI/Abdominal: Reports: No Symptoms : Reports: No Symptoms Musculoskeletal: Reports: No Symptoms, Other (back pain from recent injury) Skin: Reports: No Symptoms Neurological: Reports: No Symptoms ED EXAM, GENERAL - Physical Exam Exam: See Below Exam Limited By: No Limitations General Appearance: Alert, No Apparent Distress. No: Mild Distress Head: Atraumatic, Normocephalic Neck: Normal Inspection, Supple, Full Range of Motion Respiratory/Chest: No Respiratory Distress, Lungs Clear, Normal Breath Sounds Cardiovascular: No Murmur, Irregularly Irregular GI/Abdominal: Normal Bowel Sounds, Soft, Non-Tender Back Exam: Normal Inspection, Full Range of Motion Extremities: Normal Inspection, Normal Range of Motion, No Pedal Edema. No: Pedal Edema Neurological: Alert, Oriented, CN II-XII Intact, Normal Reflexes, No Motor/ Sensory Deficits Course - Vital Signs Text/Narrative:: EKG shows afib , CXR no acute findings, trop is neg, INR elevated at 5.1, digoxin is low 0.4 . pt is asymptomatic here and HR after metoprolol 50 is at 100. pt has chronic afib, rate is controlled and she is stable for dc home. pt was asked to hold her Coumadin for 2 days, continue with current medications and follow with her PCP on Monday for re-check. Last Recorded V/S: Last Vital Signs Temp 36.7 C 04/19/19 21:42 Pulse 102 H 04/19/19 22:20 Resp 23 H 04/19/19 21:42 BP 118/53 L 04/19/19 22:20 Pulse Ox 100 04/19/19 21:42 - Orders/Labs/Meds Orders: Active Orders 24 hr Category Date Time Status EKG Documentation Completion [RC] ASDIRECTED Care 04/19/19 22:27 Active Chest 1V Frontal [CR] Stat Exams 04/19/19 22:11 Ordered EKG 12 Lead [EK] Routine Ther 04/19/19 22:27 Ordered Labs: Laboratory Tests 04/19/19 04/19/19 04/19/19 Range/Units 22:18 22:18 22:18 WBC 8.0 (4.5-12.0) X10-3/uL RBC 3.23 (3.23-5.20) x10(6)uL Hgb 10.4 L D (11.5-15.5) g/dL Hct 29.9 L D (30.0-51.3) % MCV 92.6 (80-96) fL MCH 32.3 (27.7-33.6) pg MCHC 34.8 (32.2-35.4) g/dL RDW 14.0 (11.5-15.5) % Plt Count 186 (125-369) X10(3)uL MPV 7.5 (7.4-10.4) fL Neut % (Auto) 65.8 (46-82) % Lymph % (Auto) 18.4 (13-37) % [place] % (Auto) 11.0 (4-12) % Eos % (Auto) 4 (1.0-5.0) % Baso % (Auto) 1 (0-2) % Neut # (Auto) 5.2 (1.6-8.3) # Lymph # (Auto) 1.5 (0.6-5.0) # [place] # (Auto) 0.9 (0.0-1.3) # Eos # (Auto) 0.3 (0.0-0.8) # Baso # (Auto) 0.1 (0.0-0.2) # PT 49.3 H* (8.7-11.1) INR 5.16 H* (0.89-1.13) APTT 54.9 H (24.4-33.2) SECONDS Sodium 138 (135-145) mmol/L Potassium 3.9 (3.5-5.3) mmol/L Chloride 101 D (100-110) mmol/L Carbon Dioxide 29 (21-32) mmol/L BUN 12 (7-18) mg/dL Creatinine 1.1 H (0.55-1.02) mg/dL Est Cr Clr Drug Dosing 48.73 mL/min Estimated GFR (MDRD) 51 L (>60) BUN/Creatinine Ratio 10.9 (9-20) Glucose 185 H (80-116) mg/dL Calcium 8.2 L (8.6-10.2) mg/dL Total Bilirubin 0.2 (0.1-1.3) mg/dL AST 16 D (5-25) IU/L ALT 27 D (12-36) U/L Alkaline Phosphatase 82 (56-112) IU/L Troponin I (<0.017-0.056) ng/mL Total Protein 5.7 L (6.0-8.0) g/dL Albumin 2.6 L (3.5-5.2) g/dL Globulin 3.1 g/dL Albumin/Globulin Ratio 0.8 Digoxin (<0.2) ng/mL 04/19/19 04/19/19 Range/Units 22:18 22:18 WBC (4.5-12.0) X10-3/uL RBC (3.23-5.20) x10(6)uL Hgb (11.5-15.5) g/dL Hct (30.0-51.3) % MCV (80-96) fL MCH (27.7-33.6) pg MCHC (32.2-35.4) g/dL RDW (11.5-15.5) % Plt Count (125-369) X10(3)uL MPV (7.4-10.4) fL Neut % (Auto) (46-82) % Lymph % (Auto) (13-37) % [place] % (Auto) (4-12) % Eos % (Auto) (1.0-5.0) % Baso % (Auto) (0-2) % Neut # (Auto) (1.6-8.3) # Lymph # (Auto) (0.6-5.0) # [place] # (Auto) (0.0-1.3) # Eos # (Auto) (0.0-0.8) # Baso # (Auto) (0.0-0.2) # PT (8.7-11.1) INR (0.89-1.13) APTT (24.4-33.2) SECONDS Sodium (135-145) mmol/L Potassium (3.5-5.3) mmol/L Chloride (100-110) mmol/L Carbon Dioxide (21-32) mmol/L BUN (7-18) mg/dL Creatinine (0.55-1.02) mg/dL Est Cr Clr Drug Dosing mL/min Estimated GFR (MDRD) (>60) BUN/Creatinine Ratio (9-20) Glucose (80-116) mg/dL Calcium (8.6-10.2) mg/dL Total Bilirubin (0.1-1.3) mg/dL AST (5-25) IU/L ALT (12-36) U/L Alkaline Phosphatase (56-112) IU/L Troponin I < 0.017 L (<0.017-0.056) ng/mL Total Protein (6.0-8.0) g/dL Albumin (3.5-5.2) g/dL Globulin g/dL Albumin/Globulin Ratio Digoxin 0.4 L (<0.2) ng/mL Meds: Medications Discontinued Medications Generic Name Dose Route Start Last Admin Trade Name Susan PRN Reason Stop Dose Admin Metoprolol Tartrate 50 mg 04/19/19 22:11 04/19/19 22:20 Lopressor PO 04/19/19 22:12 50 mg ONETIME ONE Administration Departure - Departure Time of Disposition: 22:56 Disposition: Home, Self-Care 01 Clinical Impression: Afib Qualifiers: Atrial fibrillation type: paroxysmal Qualified Code(s): I48.0 - Paroxysmal atrial fibrillation - Discharge Information Referrals: PCP,None [Primary Care Provider] - Sepsis Event Note - Focused Exam Vital Signs: Vital Signs Temp Pulse Pulse Resp BP BP Pulse Ox 04/19/19 22:20 102 H 118/53 L 04/19/19 21:42 36.7 C 102 H 23 H 145/71 H 100 Date Exam was Performed: 04/19/19 Time Exam was Performed: 22:53 - My Orders Last 24 Hours: My Active Orders 04/19/19 22:11 Chest 1V Frontal [CR] Stat 04/19/19 22:27 EKG Documentation Completion [RC] ASDIRECTED EKG 12 Lead [EK] Routine - Assessment/Plan Last 24 Hours: My Active Orders 04/19/19 22:11 Chest 1V Frontal [CR] Stat 04/19/19 22:27 EKG Documentation Completion [RC] ASDIRECTED EKG 12 Lead [EK] Routine
[2019-04-19] MEDS ORDERED: Metoprolol Tartrate 50 MG Tab PO ONE (22:11)
[2019-04-19 23:33] VITALS: BP 105/59; PULSE 108
--- NOTE | 2019-04-22 13:49 | CR ---
INDICATION: Atrial fibrillation. CHEST, 1 VIEW: AP upright portable view of the chest, 04/19/19, was compared with 03/01/19 and 12/21/18. The heart is normal in size. The central pulmonary vasculature is slightly prominent. Little change is noted compared with the previous studies. In the right upper lung field, there is an appearance of infiltration extending from the right hilum. This has been present previously and may be on the basis of pulmonary fibrosis, although superimposed pneumonia in that area certainly cannot be excluded. This finding should be correlated clinically. MTDD
== END 2019-04-19 23:15 | disposition home or self-care (01) ==
LOC: FB.ED 21:42
DX: I48.0 Paroxysmal atrial fibrillation (principal); I48.91 Unspecified atrial fibrillation; I11.0 Hypertensive heart disease with heart failure; I50.9 Heart failure, unspecified; I10 Essential (primary) hypertension; E11.9 Type 2 diabetes mellitus without complications; E66.9 Obesity, unspecified; F41.9 Anxiety disorder, unspecified; F32.9 Major depressive disorder, single episode, unspecified; Z88.1 Allergy status to other antibiotic agents; Z88.5 Allergy status to narcotic agent; Z88.8 Allergy status to other drugs, medicaments and biological substances; Z79.82 Long term (current) use of aspirin; Z79.01 Long term (current) use of anticoagulants; Z79.899 Other long term (current) drug therapy; J45.909 Unspecified asthma, uncomplicated; Z68.43 Body mass index [BMI] 50.0-59.9, adult
CPT/HCPCS: 36415; 71045; 80053; 80162; 84484; 85025; 85610; 85730; 93005; 99285; A9270

== ENCOUNTER 2019-04-26 18:45 | Emergency (ER) | payer MEDICAID ==
[2019-04-26] MEDS ORDERED: Sodium Chloride 0.9% 10 ML Syringe FLUSH PRN (19:07)
[2019-04-26] MEDS ORDERED: Diltiazem 25 MG/5 ML SDV IVPUSH ONE (19:07)
--- NOTE | 2019-04-26 19:18 | EDM.PDOC ---
ED HPI GENERAL MEDICAL PROBLEM - General Chief Complaint: Cardiovascular Problem Stated Complaint: RAPID ATRIAL FIBRILLATION Time Seen by Provider: 04/26/19 19:12 Source of Information: Reports: Patient History Limitations: Reports: No Limitations - History of Present Illness INITIAL COMMENTS - FREE TEXT/NARRATIVE: Patient has a h/o atrial fibrillation, chf, asthma, morbid obesity and is 02 dependent. Presents with palpitations/rapid heart rate since this morning. Denies chest pain or shortness of breath. She was treated at [facility] ED for the same issue, given Metoprolol with improvement of symptoms, but home medications were not changed. She has not yet followed up with her primary physician since that visit. Onset: Today - Related Data Allergies Allergy/AdvReac Type Severity Reaction Status Date / Time cefazolin sodium [From Ancef] Allergy Rash Verified 04/26/19 19:29 codeine phosphate Allergy Hives Verified 04/26/19 19:29 [From Tylenol-Codeine #3] gatifloxacin Allergy Nausea and Verified 04/26/19 19:29 Vomiting levofloxacin [From Levaquin] Allergy Rash Verified 04/26/19 19:29 methylprednisolone Allergy Cannot Verified 04/26/19 19:29 Remember piperacillin sodium Allergy Hives Verified 04/26/19 19:29 [From Zosyn] tazobactam sodium Allergy Hives Verified 04/26/19 19:29 [From Zosyn] Home Meds: Home Meds Phenytoin Sodium Extended [Dilantin] 200 mg PO BID #120 capsule 05/29/14 [Rx] Aspirin 325 mg PO DAILY 12/21/14 [History] Loperamide HCl [Loperamide] 2 mg PO ASDIRECTED PRN 11/01/15 [History] Multivitamins/Min/Ca/FA/Iron [Thera-M] 1 tab PO DAILY 11/01/15 [History] OXcarbazepine [Trileptal] 300 mg PO BID 11/01/15 [History] Pyrithione Zinc [Dandruff Shampoo] 1 applic TOP DAILY PRN 04/04/16 [History] Albuterol [Ventolin HFA] 2 puff INH Q6H PRN 06/01/17 [History] EPINEPHrine [Epinephrine] 0.3 mg IJ ASDIRECTED PRN 06/01/17 [History] Furosemide [Lasix] 40 mg PO BID 06/01/17 [History] Levothyroxine 225 mcg PO Q48H 06/01/17 [History] Rosuvastatin [Crestor] 40 mg PO WITHLUNCH 06/01/17 [History] risperiDONE 2 mg PO BID 06/01/17 [History] FLUoxetine HCl [Prozac] 80 mg PO DAILY 07/01/17 [History] Warfarin Sodium [Jantoven] 7.5 mg PO SUTUWETHFRSA 07/01/17 [History] Digoxin 0.125 mg PO Q48H 10/16/17 [History] Hyoscyamine [Levsin] 0.125 mg PO DAILY PRN 10/16/17 [History] Insulin Aspart [NovoLOG] 0 - 10 units SQ BIDMEALS 10/16/17 [History] Insulin Glarg,Human.Rec.Analog [Lantus] 6 units SQ BID 10/16/17 [History] Metoprolol Succinate 100 mg PO DAILY 10/16/17 [History] Potassium Chloride [Klor-Con M20] 20 meq PO DAILY 10/16/17 [History] Sucralfate 1 gm PO QIDACANDBED 10/16/17 [History] Topiramate 100 mg PO BID 10/16/17 [History] Acetaminophen [Tylenol Extra Strength] 1,000 mg Q6H PRN 03/01/19 [History] ClonazePAM [KlonoPIN] 0.5 mg PO BID 03/01/19 [History] Magnesium 250 mg PO DAILY 03/01/19 [History] Methocarbamol [Robaxin] 500 mg PO TID PRN 03/01/19 [History] Warfarin Sodium [Jantoven] 5 mg MO 03/01/19 [History] traMADol [Ultram] 100 mg PO Q8H PRN #30 tablet 04/18/19 [Rx] Past Medical History HEENT History: Reports: Cataract, Other (See Below) Other HEENT History: bilat cataract Cardiovascular History: Reports: Afib, Heart Failure, High Cholesterol, Hypertension Other Cardiovascular History: chronic lymphedema, chronic atrial fibrillation Respiratory History: Reports: Asthma, Other (See Below) Other Respiratory History: On O2 @ 4L/[place] @ home. Gastrointestinal History: Reports: GERD Genitourinary History: Reports: UTI, Recurrent YAM CURER History: Reports: Other (See Below) Other YAM CURER History: 1, para1, with a normal delivery Musculoskeletal History: Reports: Fracture, Other (See Below) Other Musculoskeletal History: hx R wrist Neurological History: Reports: Migraines Psychiatric History: Reports: Anxiety, Bipolar, Depression, Psych Hospitalization(s) Other Psychiatric History: history of substance abuse Endocrine/Metabolic History: Reports: Diabetes, Type II, Obesity/BMI 30+, Other (See Below) Other Endocrine/Metabolic History: diabetic; unknown which type Hematologic History: Reports: Anticoagulation Therapy, Blood Transfusion(s) Immunologic History: Reports: None Oncologic (Cancer) History: Reports: None Dermatologic History: Reports: Decubitus Ulcer, Other (See Below) Other Dermatologic History: dermatitis to lower legs, hx lymph edema - Infectious Disease History Infectious Disease History: Reports: Chicken Pox, MRSA Other Infectious Disease History: had tests was cleared of MRSA - Past Surgical History Head Surgeries/Procedures: Reports: None HEENT Surgical History: Reports: Tonsillectomy Cardiovascular Surgical History: Reports: None Respiratory Surgical History: Reports: None GI Surgical History: Reports: Colonoscopy Female Surgical History: Reports: D&C Neurological Surgical History: Reports: None Social & Family History - Family History Family Medical History: Unobtainable Cardiac: Reports: CAD Respiratory: Reports: Asthma, Sleep Apnea, Other (See Below) Other Respiratory Family Hisory: pt refuses to be tested for sleep apnea but family is pretty sure she has it. Oncologic: Reports: Lung - Caffeine Use Caffeine Use: Reports: Coffee, Soda Other Caffeine Use: 3 cups a day - Living Situation & Occupation Living situation: Reports: Single, with Significant Other Occupation: Unemployed ED ROS GENERAL - Review of Systems Review Of Systems: Comprehensive ROS is negative, except as noted in HPI. ED EXAM, GENERAL - Physical Exam Exam: See Below Exam Limited By: No Limitations General Appearance: Alert, WD/WN, No Apparent Distress Ears: Normal External Exam Throat/Mouth: Normal Voice, No Airway Compromise Head: Atraumatic, Normocephalic Neck: Full Range of Motion Respiratory/Chest: No Respiratory Distress, Lungs Clear, Normal Breath Sounds Cardiovascular: No Murmur, Tachycardia Extremities: Pedal Edema Neurological: Alert, Normal Cognition Psychiatric: Normal Affect Skin Exam: Warm, Dry, Intact EKG INTERPRETATION EKG Date: 04/26/19 Time: 19:10 Rhythm: A-Fib Rate (Beats/Min): 127 QRS: RBBB Comparison: No Change (04/19/19) Course - Vital Signs Last Recorded V/S: Last Vital Signs Temp 36.9 C 04/26/19 18:45 Pulse 138 H 04/26/19 19:35 Resp 20 04/26/19 18:45 BP 109/48 L 04/26/19 19:35 Pulse Ox 99 04/26/19 18:45 - Orders/Labs/Meds Orders: Active Orders 24 hr Category Date Time Status EKG Documentation Completion [RC] ASDIRECTED Care 04/26/19 19:06 Active THYROXINE (T4) FREE, DIRECT, S Stat Lab 04/26/19 20:16 Ordered Sodium Chloride 0.9% [Saline Flush] Med 04/26/19 19:07 Active 10 ml FLUSH ASDIRECTED PRN Saline Lock Insert [OM.PC] Routine Oth 04/26/19 19:07 Ordered EKG 12 Lead [EK] Stat Ther 04/26/19 19:05 Ordered Medication Orders Sodium Chloride (Saline Flush) 10 ml FLUSH ASDIRECTED PRN PRN Reason: Keep Vein Open Labs: Laboratory Tests 04/26/19 04/26/19 04/26/19 Range/Units 19:30 19:30 19:30 WBC 9.0 (4.5-12.0) X10-3/uL RBC 3.52 (3.23-5.20) x10(6)uL Hgb 11.5 (11.5-15.5) g/dL Hct 33.6 (30.0-51.3) % MCV 95.6 (80-96) fL MCH 32.7 (27.7-33.6) pg MCHC 34.2 (32.2-35.4) g/dL RDW 16.9 H (11.5-15.5) % Plt Count 378 H (125-369) X10(3)uL MPV 7.7 (7.4-10.4) fL Neut % (Auto) 60.1 (46-82) % Lymph % (Auto) 22.3 (13-37) % [place] % (Auto) 12.2 H (4-12) % Eos % (Auto) 3 (1.0-5.0) % Baso % (Auto) 3 H (0-2) % Neut # (Auto) 5.4 (1.6-8.3) # Lymph # (Auto) 2.0 (0.6-5.0) # [place] # (Auto) 1.1 (0.0-1.3) # Eos # (Auto) 0.3 (0.0-0.8) # Baso # (Auto) 0.2 (0.0-0.2) # PT 34.9 H (8.7-11.1) INR 3.65 H (0.89-1.13) Sodium 139 (135-145) mmol/L Potassium 3.4 L (3.5-5.3) mmol/L Chloride 98 L (100-110) mmol/L Carbon Dioxide 32 (21-32) mmol/L BUN 16 (7-18) mg/dL Creatinine 1.1 H (0.55-1.02) mg/dL Est Cr Clr Drug Dosing TNP Estimated GFR (MDRD) 51 L (>60) BUN/Creatinine Ratio 14.5 (9-20) Glucose 150 H (80-116) mg/dL Calcium 8.8 (8.6-10.2) mg/dL Magnesium (1.8-2.5) mg/dL Total Bilirubin 0.8 (0.1-1.3) mg/dL AST 19 D (5-25) IU/L ALT 21 D (12-36) U/L Alkaline Phosphatase 98 (56-112) IU/L Troponin I (<0.017-0.056) ng/mL Total Protein 7.0 (6.0-8.0) g/dL Albumin 3.3 L (3.5-5.2) g/dL Globulin 3.7 g/dL Albumin/Globulin Ratio 0.9 TSH, Ultra Sensitive (0.36-3.74) IU/mL Digoxin (<0.2) ng/mL 04/26/19 04/26/19 Range/Units 19:30 19:30 WBC (4.5-12.0) X10-3/uL RBC (3.23-5.20) x10(6)uL Hgb (11.5-15.5) g/dL Hct (30.0-51.3) % MCV (80-96) fL MCH (27.7-33.6) pg MCHC (32.2-35.4) g/dL RDW (11.5-15.5) % Plt Count (125-369) X10(3)uL MPV (7.4-10.4) fL Neut % (Auto) (46-82) % Lymph % (Auto) (13-37) % [place] % (Auto) (4-12) % Eos % (Auto) (1.0-5.0) % Baso % (Auto) (0-2) % Neut # (Auto) (1.6-8.3) # Lymph # (Auto) (0.6-5.0) # [place] # (Auto) (0.0-1.3) # Eos # (Auto) (0.0-0.8) # Baso # (Auto) (0.0-0.2) # PT (8.7-11.1) INR (0.89-1.13) Sodium (135-145) mmol/L Potassium (3.5-5.3) mmol/L Chloride (100-110) mmol/L Carbon Dioxide (21-32) mmol/L BUN (7-18) mg/dL Creatinine (0.55-1.02) mg/dL Est Cr Clr Drug Dosing Estimated GFR (MDRD) (>60) BUN/Creatinine Ratio (9-20) Glucose (80-116) mg/dL Calcium (8.6-10.2) mg/dL Magnesium 1.5 L (1.8-2.5) mg/dL Total Bilirubin (0.1-1.3) mg/dL AST (5-25) IU/L ALT (12-36) U/L Alkaline Phosphatase (56-112) IU/L Troponin I < 0.017 L (<0.017-0.056) ng/mL Total Protein (6.0-8.0) g/dL Albumin (3.5-5.2) g/dL Globulin g/dL Albumin/Globulin Ratio TSH, Ultra Sensitive 7.72 H* (0.36-3.74) IU/mL Digoxin 0.5 L (<0.2) ng/mL Meds: Medications Generic Name Dose Route Start Last Admin Trade Name Freq PRN Reason Stop Dose Admin Sodium Chloride 10 ml 04/26/19 19:07 Saline Flush FLUSH ASDIRECTED PRN Keep Vein Open Discontinued Medications Generic Name Dose Route Start Last Admin Trade Name Susan PRN Reason Stop Dose Admin Digoxin 250 mcg 04/26/19 20:54 Lanoxin IVPUSH 04/26/19 20:55 ONETIME ONE Diltiazem HCl 25 mg 04/26/19 19:07 04/26/19 19:29 Diltiazem IVPUSH 04/26/19 19:08 Not Given ONETIME ONE Sodium Chloride 500 mls @ 500 mls/hr 04/26/19 19:19 04/26/19 19:35 Normal Saline IV 04/26/19 20:18 500 mls/hr .BOLUS ONE Administration Magnesium Sulfate 2 gm/ 104 mls @ 100 mls/hr 04/26/19 19:49 Dextrose/Water IV 04/26/19 20:51 ONETIME ONE Magnesium Sulfate Confirm 04/26/19 20:17 Magnesium Sulfate In Water Premix Administered 04/26/19 20:18 Dose 50 mls @ as directed .ROUTE .STK-MED ONE Metoprolol Tartrate 5 mg 04/26/19 19:19 04/26/19 19:35 Lopressor IVPUSH 04/26/19 19:20 5 mg ONETIME ONE Administration Metoprolol Tartrate 25 mg 04/26/19 20:44 Lopressor PO 04/26/19 20:45 ONETIME ONE - Re-Assessments/Exams Free Text/Narrative Re-Assessment/Exam: 04/26/19 21:03 HR improved to 90's after Lopressor 5mg IV, but is increasing again, HR now 110- 120. Dig level is below therapeutic range, will order Digoxin 0.25mg IV. Magnesium level low at 1.5, will order Mag Sulfate 2g IV. Patient care turned over to Dr. Martin @2100. Departure - Departure Time of Disposition: 21:06 Disposition: Still A Patient 30 Clinical Impression: Atrial fibrillation with rapid ventricular response Referrals: PCP,None [Primary Care Provider] - Forms: ED Department Discharge Sepsis Event Note - Focused Exam Vital Signs: Vital Signs Temp Pulse Pulse Resp BP BP Pulse Ox 04/26/19 19:35 138 H 109/48 L 04/26/19 18:45 36.9 C 144 H 20 100/54 L 99 Date Exam was Performed: 04/26/19 Time Exam was Performed: 21:03 - My Orders Last 24 Hours: My Active Orders 04/26/19 19:05 EKG 12 Lead [EK] Stat 04/26/19 19:06 EKG Documentation Completion [RC] ASDIRECTED 04/26/19 19:07 Sodium Chloride 0.9% [Saline Flush] 10 ml FLUSH ASDIRECTED PRN Saline Lock Insert [OM.PC] Routine 04/26/19 20:16 THYROXINE (T4) FREE, DIRECT, S Stat - Assessment/Plan Last 24 Hours: My Active Orders 04/26/19 19:05 EKG 12 Lead [EK] Stat 04/26/19 19:06 EKG Documentation Completion [RC] ASDIRECTED 04/26/19 19:07 Sodium Chloride 0.9% [Saline Flush] 10 ml FLUSH ASDIRECTED PRN Saline Lock Insert [OM.PC] Routine 04/26/19 20:16 THYROXINE (T4) FREE, DIRECT, S Stat
[2019-04-26] MEDS ORDERED: Sodium Chloride 0.9% 500 ML IV ONE (19:19)
[2019-04-26] MEDS ORDERED: Metoprolol Tartrate 5 MG/5 ML SDV IVPUSH ONE (19:19)
[2019-04-26 19:36] VITALS: BP 109/48
[2019-04-26] MEDS ORDERED: Magnesium Sulfate/Water 50 ML ONE (20:17)
[2019-04-26] MEDS ORDERED: Metoprolol Tartrate 25 MG Tab PO ONE (20:44)
[2019-04-26] MEDS ORDERED: Digoxin 500 MCG/2 ML Amp IVPUSH ONE (20:54)
[2019-04-26] MEDS ORDERED: Magnesium Sulfate/Water 2 GM in Premix Bag 1 BAG IV ONE (21:00)
[2019-04-26 21:30] VITALS: PULSE 98
--- NOTE | 2019-04-29 10:37 | ER ---
DATE SEEN: 04/26/2019 ADDENDUM: I was asked to see her after she had presented for palpitations. She was found to have atrial fibrillation and rapid ventricular response. At the time that I saw her at 2230 hours, she had been given digoxin and an oral beta- leobardo, and she was asymptomatic. Heart rate was down to 100. PAST MEDICAL HISTORY: Morbid obesity, AFib, walking disability, hyponatremia, hypomagnesemia, polypharmacy. REVIEW OF SYSTEMS: She denies fever or chest pain. PHYSICAL EXAMINATION: VITAL SIGNS: Blood pressure is 109/48 and pulse is down to 100. She is afebrile. CHEST: Clear. CARDIOVASCULAR: S1 and S2 are irregular. No murmurs. EXTREMITIES: Nonpitting peripheral edema. MENTAL STATUS: Alert. IMPRESSION: Atrial fibrillation. PLAN: I advised her to resume her medications, including digoxin, and follow up with Hoda Driver NP, next week. Return to the ED with any worsening symptoms. /[id number] GALEN/ANNA
== END 2019-04-26 23:05 | disposition home or self-care (01) ==
LOC: FB.ED 18:45
DX: I48.91 Unspecified atrial fibrillation (principal); E66.01 Morbid (severe) obesity due to excess calories; J45.909 Unspecified asthma, uncomplicated; I11.0 Hypertensive heart disease with heart failure; I50.9 Heart failure, unspecified; E11.9 Type 2 diabetes mellitus without complications; E66.9 Obesity, unspecified; Z88.1 Allergy status to other antibiotic agents; Z88.5 Allergy status to narcotic agent; Z88.8 Allergy status to other drugs, medicaments and biological substances; Z79.82 Long term (current) use of aspirin; Z79.01 Long term (current) use of anticoagulants; Z79.4 Long term (current) use of insulin; Z98.890 Other specified postprocedural states
CPT/HCPCS: 36415; 80053; 80162; 83735; 84439; 84443; 84484; 85025; 85610; 93005; 96365; 96375; 99285; J1160; J3475; J3490; J7040